=== PATIENT | male | born 1935 | race Caucasian/White ===

== ENCOUNTER 2016-09-02 10:21 | Emergency (ER) | payer MEDICARE, OTHER ==
[~2016-09-02] VITALS: Ht 180.3 cm; Wt 80.5 kg
[~2016-09-02 10:21] MED LIST: COUM1TAB; LISI-589; NEFA50TA; SIMV5TAB32; SPIRCAP
[2016-09-02 10:25] VITALS: BP 138/62; PULSE 68; RESP 17; TEMP 98; O2SAT 100
[2016-09-02] MEDS ORDERED: SPIRCAP INH (10:31)
[2016-09-02] MEDS ORDERED: ALPR0.5T3 PO (10:31)
[2016-09-02] MEDS ORDERED: WARF4TAB52 PO (10:31)
[2016-09-02] MEDS ORDERED: SIMV10TA PO (10:31)
[2016-09-02] MEDS ORDERED: NIFE20 PO (10:31)
[2016-09-02] MEDS ORDERED: FURO40TA PO (10:31)
[2016-09-02] MEDS ORDERED: LISI10TA3 PO (10:31)
--- NOTE | 2016-09-02 10:56 | PD ---
HPI Chief Complaint: Injury Time Seen by Provider: 10:34 Travel History International Travel<30 days: No Contact w/Intl Traveler<30days: No Traveled to known affect area: No History of Present Illness HPI Patient is a 81-year-old male who presents emergency Department with complaint of left ankle pain. Patient had a mechanical fall 2 days ago. Patient states that he twisted his left ankle and since has had pain in the medial and lateral aspects of the ankle. Patient has been able to ambulate, but has been having to use a "walking stick" to help due to pain which he typically does not use. Notes increasing swelling in the left ankle/foot. Notes a history of chronic venous stasis in the bilateral lower extremities. Always has some degree of swelling. No numbness or tingling. No history of neuropathy. Denies any other injury, head injury, headache, nausea vomiting, neck or back pain. PFSH Past Medical History Asthma: Yes Atrial Fibrillation: Yes Blood Disorders: Yes Cancer: No Cardiovascular Problems: Yes High Cholesterol: Yes Chemotherapy: No Congestive Heart Failure: Yes COPD: Yes Cerebrovascular Accident: Yes Diminished Hearing: No Endocrine: No Genitourinary: No Hypertension: Yes Immune Disorder: No Musculoskeletal: No Neurologic: Yes Psychiatric: No Radiation Therapy: No Sickle Cell Disease: No ?: Not Past Surgical History AICD: No Joint Replacement: No Pacemaker: No Other Surgery: Yes (COLONOSCOPY) Social History Alcohol Use: No Tobacco Use: No Substance Use: No Allergies-Medications (Allergen,Severity, Reaction): Coded Allergies: Penicillin (Verified Allergy, Severe, 09/02/16) Reported Meds & Prescriptions Reported Meds & Active Scripts Active Reported Alprazolam 0.5 Mg Tab 0.5 Mg PO DAILY Spiriva Handihaler (Tiotropium Inh) 18 Mcg Cap 18 Mcg INH DAILY 1 capsule = 18 mcg Furosemide 40 Mg Tab 40 Mg PO DAILY Warfarin 1 Mg Tab 1 Mg PO DAILY Simvastatin 10 Mg Tab 10 Mg PO DAILY Nifedipine 20 Mg Cap 60 Mg PO BID Lisinopril 10 Mg Tab 10 Mg PO DAILY Review of Systems Except as stated in HPI: all other systems reviewed are Neg Physical Exam Narrative GENERAL: Well-appearing elderly male in no acute distress SKIN: Warm and dry. HEAD: Atraumatic. EYES: Pupils equal and round. No scleral icterus. No injection or drainage. ENT: No nasal bleeding or discharge. Mucous membranes pink and moist. NECK: Supple without midline tenderness to palpation CARDIOVASCULAR: Regular rate and rhythm. No murmur appreciated. RESPIRATORY: No accessory muscle use. Clear to auscultation. Breath sounds equal bilaterally. Harsh cough, improving per patient. GASTROINTESTINAL: Abdomen soft, non-tender, nondistended. MUSCULOSKELETAL: Bilateral lower extremities with venous stasis edema. There is mild erythema of the lower extremities left slightly greater than right. Increasing edema of the left ankle/foot. Patient has focal tenderness to palpation of the medial and lateral malleoli of the left ankle. Distal sensation and pulses are intact. No obvious deformities. Range of motion intact, and does not reproduce pain. NEUROLOGICAL: Awake and alert. Normal speech. PSYCHIATRIC: Appropriate mood and affect; insight and judgment normal. Data Data Last Documented VS Vital Signs Date Time Temp Pulse Resp B/P Pulse Ox O2 Delivery O2 Flow Rate FiO2 09/02/16 10:31 100 Nasal Cannula 2 09/02/16 10:25 98.0 68 17 138/62 Orders Ankle, Complete ([id number]) (09/02/16 ) Foot, Complete ([id number]) (09/02/16 ) [facility] Medical Decision Making Medical Screen Exam Complete: Yes Emergency Medical Condition: Yes Medical Record Reviewed: Yes Differential Diagnosis 81-year-old male here with left ankle pain status post mechanical fall 2 days ago. Differential includes ankle fracture, dislocation, sprain, foot fracture. He does have mild increased edema and erythema but exam is not consistent with cellulitis at this time. Narrative Course X-ray of the left ankle and foot were obtained showing chronic changes but no acute abnormalities. Patient was able ambulate without any difficulty. He was given Alfa wrap for comfort and will be discharged home. Diagnosis Primary Impression: Left ankle sprain Qualified Code: S93.402A - Sprain of left ankle, unspecified ligament, initial encounter Referrals: Primary Care Physician as needed Patient Instructions: Ankle Sprain (ED), General Instructions Additional Instructions: Tylenol, ibuprofen as needed for pain. Elevate to help with swelling. Ice the affected area 20 minutes at a time to 3 times daily. Alfa wrap as needed for comfort and support. Follow-up with primary care provider symptoms persist and return to the ER for the warning signs discussed. Med/Other Pt SpecificInfo: No Change to Meds Disposition: 01 DISCHARGE HOME Condition: Stable Bharti Reardon MD Sep 02, 2016 10:56
--- NOTE | 2016-09-02 11:40 | RADHPO ---
EXAM DATE/TIME: 09/02/2016 11:16 [facility] COMPARISON: No previous studies available for comparison. INDICATIONS : Left ankle pain post fall two days ago. MEDICAL HISTORY : None. SURGICAL HISTORY : None. ENCOUNTER: Initial ACUITY: 2 days PAIN SCORE: 6/10 LOCATION: Left ankle. FINDINGS: No fracture or subluxation seen of the left ankle. There is diffuse soft tissue swelling. Vascular ca lcifications are noted including phleboliths that are typically seen in the setting of chronic venous stasis. CONCLUSION: Nonspecific soft tissue swelling without acute bony abnormality. Willis Villarreal MD on September 02, 2016 at 11:38 Board Certified Radiologist. This report was verified electronically.
--- NOTE | 2016-09-02 11:41 | RADHPO ---
EXAM DATE/TIME: 09/02/2016 11:21 [facility] COMPARISON: No previous studies available for comparison. INDICATIONS : Left foot pain post fall two days ago. MEDICAL HISTORY : None. SURGICAL HISTORY : None. ENCOUNTER: Initial ACUITY: 2 days PAIN SCORE: 6/10 LOCATION: Left foot. FINDINGS: Bones of the left foot are intact. No subluxations. Minimal degenerative changes are seen at the firs t metatarsophalangeal joint and sesamoids. There is diffuse soft tissue swelling. CONCLUSION: Soft tissue swelling without fracture, subluxation or other acute bony abnormality. Willis Villarreal MD on September 02, 2016 at 11:39 Board Certified Radiologist. This report was verified electronically.
[2016-09-02 12:11] VITALS: BP 124/62
== END 2016-09-02 12:12 | disposition home or self-care (01) ==
LOC: PHED 10:21
DX: S93.402A Sprain of unspecified ligament of left ankle, initial encounter (principal); I48.91 Unspecified atrial fibrillation; J45.909 Unspecified asthma, uncomplicated; E78.00 Pure hypercholesterolemia, unspecified; J44.9 Chronic obstructive pulmonary disease, unspecified; Z86.73 Personal history of transient ischemic attack (TIA), and cerebral infarction without residual deficits; I10 Essential (primary) hypertension; W19.XXXA Unspecified fall, initial encounter; Y99.9 Unspecified external cause status; Y93.89 Activity, other specified
CPT/HCPCS: 73610; 73630; 99283

== ENCOUNTER → 2016-10-10 | Outpatient (CLI) | payer MEDICARE, OTHER ==
[~2016-10-10] MED LIST changes: +ALPR0.5T3 PO; -COUM1TAB; +FURO40TA PO; -LISI-589; +LISI10TA3 PO; -NEFA50TA; +NIFE20 PO; +SIMV10TA PO; -SIMV5TAB32; -SPIRCAP; +SPIRCAP INH; +WARF4TAB52 PO
[2016-10-10 13:17] LABS: AUTOMATED NEUTROPHIL # 8.7 TH/MM3 (1.8-7.7); BASOPHIL # 0.1 TH/MM3 (0-0.2); BASOPHIL % 0.9 % (0.0-2.0); EOSINOPHIL # 0.2 TH/MM3 (0-0.4); EOSINOPHIL % 1.6 % (0.0-4.0); HEMO FLAGS DIFF FINAL; LYMPHOCYTE # 1.2 TH/MM3 (1.0-4.8); MEAN CELL VOLUME 83.8 FL (80.0-100.0); MEAN CORPUSCULAR HEMOGLOBIN 27.3 PG (27.0-34.0); MEAN CORPUSCULAR HGB CONC 32.5 % (32.0-36.0); MONO % 8.3 % (0.0-8.0); NEUT % 78.2 % (16.0-70.0); PLATELET COUNT 251 TH/MM3 (150-450); RED BLOOD COUNT 4.05 MIL/MM3 (4.50-5.90); WHITE BLOOD COUNT 11.2 TH/MM3 (4.0-11.0)
[2016-10-10 13:35] LABS: ANION GAP 11 MEQ/L (5-15); AST (GOT) 10 U/L (15-37); BICARBONATE 32.2 MEQ/L (21.0-32.0); BLOOD UREA NITROGEN 60 MG/DL (7-18); CHLORIDE 94 MEQ/L (98-107); GLOMERULAR FILTRATION RATE 19 ML/MIN (>89); GLUCOSE,FASTING 97 MG/DL (74-99); POTASSIUM 4.4 MEQ/L (3.5-5.1); SODIUM (NA) 137 MEQ/L (136-145)
[2016-10-10 13:46] LABS: ALKALINE PHOSPHATASE 82 U/L (45-117); ALT (GPT) 12 U/L (12-78); TOTAL BILIRUBIN ADULT 0.6 MG/DL (0.2-1.0)
== END ==
LOC: PLAB 10:37
PROVIDERS: ATTEND Family Medicine
DX: I48.91 Unspecified atrial fibrillation (principal); I43 Cardiomyopathy in diseases classified elsewhere
CPT/HCPCS: 36415; 80053; 84443; 85025

== ENCOUNTER 2016-10-12 17:32 | Inpatient (IN) | payer MEDICARE, OTHER ==
[~2016-10-12] VITALS: Ht 180.3 cm; Wt 75.8 kg
[2016-10-12 17:35] VITALS: PULSE 112; RESP 20; TEMP 98.3; O2SAT 100
[2016-10-12 17:55] VITALS: BP 111/66; PULSE 66; RESP 16; TEMP 98.2; O2SAT 96
[2016-10-12] MEDS ORDERED: SODIUM CHLOR 0.9% 1000 ML INJ 1,000 ML IV SCH (18:10)
[2016-10-12] MEDS ORDERED: SODIUM CHLORIDE 0.9% FLUSH 10 ML FLUSH IV FLUSH PRN ×2 (18:15→21:45)
--- NOTE | 2016-10-12 18:24 | PD ---
HPI Chief Complaint: Laceration/Skin Injury Time Seen by Provider: 18:10 Travel History International Travel<30 days: No Contact w/Intl Traveler<30days: No Traveled to known affect area: No History of Present Illness HPI Patient is an 81-year-old male who presents emergency department after police were called for her well-being check. Patient has barely been home nursing a broken left ankle with pain medicine. According to EMS he was fairly groggy on scene when they arrived. Patient and is been ailing in health and declining fairly rapidly and he is home alone. Family members tried to reach out to him today and when he didn't picker tender the phone 911 was called. On arrival patient is complaining of some left lower extremity pain. States that his initial x-ray did not reveal a fracture. Patient states he recently had a CT of his lower extremity by his primary care physician Dr. Aviles. This is what revealed the fracture. Patient also states that his lower extremity has been changing colors on and off for the past week or so. Denies any fever denies any weeping wounds. Denies any chest pain abdominal pain nausea vomiting diarrhea. Patient is somewhat somnolent on arrival. PFSH Past Medical History Hx Anticoagulant Therapy: Yes (2MG DAILY LAST 10/12) Asthma: Yes Atrial Fibrillation: Yes Blood Disorders: Yes Cancer: No Cardiovascular Problems: Yes High Cholesterol: Yes Chemotherapy: No Congestive Heart Failure: Yes COPD: Yes Cerebrovascular Accident: Yes (TIA) Diminished Hearing: No Endocrine: No Genitourinary: No Hypertension: Yes Immune Disorder: No Musculoskeletal: No Neurologic: Yes Psychiatric: No Respiratory: Yes (COPD) Radiation Therapy: No Sickle Cell Disease: No Past Surgical History AICD: No Joint Replacement: No Pacemaker: No Other Surgery: Yes (COLONOSCOPY) Social History Alcohol Use: No Tobacco Use: No Substance Use: No Allergies-Medications (Allergen,Severity, Reaction): Coded Allergies: Penicillin (Verified Allergy, Severe, 10/13/16) Reported Meds & Prescriptions Reported Meds & Active Scripts Active Reported Alprazolam 0.5 Mg Tab 0.5 Mg PO DAILY Spiriva Handihaler (Tiotropium Inh) 18 Mcg Cap 18 Mcg INH DAILY 1 capsule = 18 mcg Furosemide 40 Mg Tab 40 Mg PO DAILY Warfarin 1 Mg Tab 1 Mg PO DAILY Simvastatin 10 Mg Tab 10 Mg PO DAILY Nifedipine 20 Mg Cap 60 Mg PO BID Lisinopril 10 Mg Tab 10 Mg PO DAILY Review of Systems Except as stated in HPI: all other systems reviewed are Neg Physical Exam Narrative GENERAL: [Well-developed well-nourished no apparent distress, mildly somnolent. SKIN: Focused skin assessment warm/dry. There is some color changes as well as cool and violaceous discoloration of the left lower extremity from the mid tibia distally. There is also some gangrenous changes of the second and third toes on the same extremity. This is consistent with arterial disease. Somewhat tender to light palpation. HEAD: Atraumatic. Normocephalic. EYES: Pupils equal and round. No scleral icterus. No injection or drainage. ENT: No nasal bleeding or discharge. Mucous membranes pink and moist. NECK: Trachea midline. No JVD. CARDIOVASCULAR: Regular rate and rhythm. No murmur appreciated. RESPIRATORY: No accessory muscle use. Clear to auscultation. Breath sounds equal bilaterally. GASTROINTESTINAL: Abdomen soft, non-tender, nondistended. Hepatic and splenic margins not palpable. MUSCULOSKELETAL: No obvious deformities. No clubbing. No cyanosis. No edema. Lower extremities: There is a single ulcer in the proximal tibia, gangrenous changes of 2 toes of the lower left extremity. Skin changes as above consistent with advanced ischemic disease. Pulses are barely palpable on the left lower extremity, 2+ in the right lower extremity. Compartments are soft, no gross deformity. NEUROLOGICAL: Awake and alert. No obvious cranial nerve deficits. Motor grossly within normal limits. Normal speech. PSYCHIATRIC: Appropriate mood and affect; insight and judgment normal. Data Data Last Documented VS Vital Signs Date Time Temp Pulse Resp B/P Pulse Ox O2 Delivery O2 Flow Rate FiO2 10/12/16 19:59 67 20 121/58 100 Room Air 10/12/16 17:55 98.2 Orders Complete Blood Count With Diff (10/12/16 18:10) Comprehensive Metabolic Panel (10/12/16 18:10) Lipase (10/12/16 18:10) Lactic Acid (10/12/16 18:10) Prothrombin Time / Inr (Pt) (10/12/16 18:10) Act Partial Throm Time (Ptt) (10/12/16 18:10) Urinalysis - C+S If Indicated (10/12/16 18:10) Iv Access Insert/Monitor (10/12/16 18:10) Ecg Monitoring (10/12/16 18:10) Oximetry (10/12/16 18:10) Sodium Chlor 0.9% 1000 Ml Inj (Ns 1000 M (10/12/16 18:10) Sodium Chloride 0.9% Flush (Ns Flush) (10/12/16 18:15) Electrocardiogram (10/12/16 18:10) Us Leg Venous Doppler (10/12/16 18:10) Blood Culture (10/12/16 18:17) Salicylates (Aspirin) (10/12/16 18:17) Tylenol (Acetaminophen) (10/12/16 18:20) Consult Vascular Surgery (10/12/16 20:06) Us Venous Mapping Low Ext Bila (10/13/16 ) (Hub Use Only)Inp Phy Cons/Ref (10/12/16 ) Admit Order (Ed Use Only) (10/12/16 ) Labs Laboratory Tests Test 10/12/16 18:20 White Blood Count 8.7 TH/MM3 Red Blood Count 4.20 MIL/MM3 Hemoglobin 11.2 GM/DL Hematocrit 35.2 % Mean Corpuscular Volume 83.7 FL Mean Corpuscular Hemoglobin 26.7 PG Mean Corpuscular Hemoglobin 31.9 % Concent Red Cell Distribution Width 15.9 % Platelet Count 236 TH/MM3 Mean Platelet Volume 9.5 FL Neutrophils (%) (Auto) 77.6 % Lymphocytes (%) (Auto) 8.5 % Monocytes (%) (Auto) 11.9 % Eosinophils (%) (Auto) 1.5 % Basophils (%) (Auto) 0.5 % Neutrophils # (Auto) 6.8 TH/MM3 Lymphocytes # (Auto) 0.7 TH/MM3 Monocytes # (Auto) 1.0 TH/MM3 Eosinophils # (Auto) 0.1 TH/MM3 Basophils # (Auto) 0.0 TH/MM3 CBC Comment DIFF FINAL Differential Comment Prothrombin Time 34.1 SEC Prothromb Time International 2.9 RATIO Ratio Activated Partial 52.4 SEC Thromboplast Time Sodium Level 135 MEQ/L Potassium Level 4.2 MEQ/L Chloride Level 92 MEQ/L Carbon Dioxide Level 36.1 MEQ/L Anion Gap 7 MEQ/L Blood Urea Nitrogen 72 MG/DL Creatinine 2.81 MG/DL Estimat Glomerular Filtration 22 ML/MIN Rate Random Glucose 103 MG/DL Lactic Acid Level 1.1 mmol/L Calcium Level 8.3 MG/DL Total Bilirubin 0.5 MG/DL Aspartate Amino Transf 13 U/L (AST/SGOT) Alanine Aminotransferase 12 U/L (ALT/SGPT) Alkaline Phosphatase 79 U/L Total Protein 6.0 GM/DL Albumin 2.7 GM/DL Lipase 102 U/L Salicylates Level LESS THAN 1.7 MG/DL Acetaminophen Level 2.6 MCG/ML MDM Medical Decision Making Medical Screen Exam Complete: Yes Emergency Medical Condition: Yes Differential Diagnosis Toe gangrene, ischemic changes left lower extremity, peripheral artery disease, adjustment disorder, poor social circumstance. Narrative Course Patient was roomed in emergency department, he has obvious peripheral artery disease of the left lower extremity. Ankle brachial indexes were performed as well by Dr. Aviles and he has a 0.33 BRYCE of the left lower extremity. Patient also does have some gangrenous toes. Initial plan was to pursue labs and ultimately consult vascular surgery after a CTA with runoff. The patient also has an acute kidney injury over the past few days. Creatinine is rising as high as 3. This is contraindication to a CTA. Brief consideration was given to performing the CTA however after consulting with Dr. Oquendo the plan is to admit the patient for now and anticoagulate when the INR drops low to his patient is on Coumadin. This was discussed the patient and he is agreeable. Patient was discussed with Dr. Hernandez for admission Diagnosis Primary Impression: Ischemia of left lower extremity Admitting Information Admitting Physician Requests: Admit Condition: Stable Rg Perrin MD Oct 12, 2016 18:24
[2016-10-12 18:44] LABS: AUTOMATED NEUTROPHIL # 6.8 TH/MM3 (1.8-7.7); BASOPHIL % 0.5 % (0.0-2.0); EOSINOPHIL # 0.1 TH/MM3 (0-0.4); EOSINOPHIL % 1.5 % (0.0-4.0); HEMATOCRIT 35.2 % (39.0-51.0); HEMO FLAGS DIFF FINAL; LYMPH % 8.5 % (9.0-44.0); LYMPHOCYTE # 0.7 TH/MM3 (1.0-4.8); MEAN CELL VOLUME 83.7 FL (80.0-100.0); MEAN CORPUSCULAR HEMOGLOBIN 26.7 PG (27.0-34.0); MEAN CORPUSCULAR HGB CONC 31.9 % (32.0-36.0); MONO % 11.9 % (0.0-8.0); NEUT % 77.6 % (16.0-70.0); PLATELET COUNT 236 TH/MM3 (150-450); RED CELL DISTRIBUTION WIDTH 15.9 % (11.6-17.2); WHITE BLOOD COUNT 8.7 TH/MM3 (4.0-11.0)
--- NOTE | 2016-10-12 18:56 | RADRPT ---
EXAM DATE/TIME: 10/12/2016 18:30 [facility] COMPARISON: No previous studies available for comparison. INDICATIONS : Left leg swelling and pain. MEDICAL HISTORY : Congestive heart failure. Hypercholesterolemia. Emphysema. TIA. Afib. HTN. COPD. Asthma. Dyspnea. Blood disorders. Anticoagulant therapy, Coumadin. SURGICAL HISTORY : Colonoscopy. ENCOUNTER: Initial ACUITY: 2 months PAIN SCORE: 6/10 LOCATION: Left leg. TECHNIQUE: Venous ultrasound of the leg was performed from the inguinal ligament to the proximal calf. Real-melissa e, color Doppler and spectral tracing, compression and augmentation techniques were used. FINDINGS: There is normal compressibility of the deep venous system from the inguinal region to the proximal ca lf. No echogenic clot is seen in the lumen of the common femoral, femoral, popliteal, and posterior tibial veins. There is a normal response of the venous system to proximal and distal augmentation an d respiration. CONCLUSION: No evidence of deep venous thrombosis within the left lower extremity. Rg Stuart MD on October 12, 2016 at 18:54 Board Certified Radiologist. This report was verified electronically.
[2016-10-12 18:58] LABS: APTT (PATIENT) 52.4 SEC (24.3-30.1); INTERNATIONAL NORMALIZED RATIO 2.9 RATIO; PROTHROMBIN TIME - PATIENT 34.1 SEC (9.8-11.6)
[2016-10-12 19:14] LABS: ACETAMINOPHEN 2.6 MCG/ML (10.0-30.0); ALKALINE PHOSPHATASE 79 U/L (45-117); ALT (GPT) 12 U/L (12-78); ANION GAP 7 MEQ/L (5-15); AST (GOT) 13 U/L (15-37); BICARBONATE 36.1 MEQ/L (21.0-32.0); BLOOD UREA NITROGEN 72 MG/DL (7-18); CHLORIDE 92 MEQ/L (98-107); GLOMERULAR FILTRATION RATE 22 ML/MIN (>89); POTASSIUM 4.2 MEQ/L (3.5-5.1); SODIUM (NA) 135 MEQ/L (136-145); TOTAL BILIRUBIN ADULT 0.5 MG/DL (0.2-1.0)
[2016-10-12 19:59] VITALS: BP 121/58; PULSE 67; RESP 20; O2SAT 100
--- NOTE | 2016-10-12 21:24 | PD.VS.CON ---
History of Present Illness Chief Complaint: L foot discoloration Consult Requested by: Dr. Perrin, ED History of Present Illness 81 yo male with several days of L foot discoloration that the patient maintains started as a fracture. He lives independently but seems to be a relatively poor historian. He has no F/C and came to ER by EMS. He has full motor function of the foot and upon review of outside records, a recent BRYCE was found to be 0.74 R/0.38 L. Past/Family/Social History Past Medical History CVOD with CVA about 15 years ago HTN irreg HR Social History lives at home Family History is in hospital for unknown reason but pt notes "not doing well" Home Medications Reported Medications Alprazolam 0.5 Mg Tab0.5 Mg PO DAILY Ref 0 09/02/16 Tiotropium Inh (Spiriva Handihaler)18 Mcg Cap18 Mcg INH DAILY #30 CAP Ref 0 1 capsule = 18 mcg 09/02/16 Furosemide 40 Mg Tab40 Mg PO DAILY #30 TAB Ref 0 09/02/16 Warfarin 1 Mg Tab1 Mg PO DAILY #30 TAB Ref 0 09/02/16 Simvastatin 10 Mg Tab10 Mg PO DAILY #30 TAB Ref 0 09/02/16 Nifedipine 20 Mg Cap60 Mg PO BID #120 CAP Ref 0 09/02/16 Lisinopril 10 Mg Tab10 Mg PO DAILY #30 TAB Ref 0 09/02/16 Coded Allergies: Penicillin (Verified Allergy, Severe, 09/02/16) Review of Systems Constitutional: DENIES: Fever, Chills, Change in appetite Cardiovascular: COMPLAINS OF: Lower Extremity Edema, DENIES: Chest pain Musculoskeletal: COMPLAINS OF: Joint Swelling Integumentary: COMPLAINS OF: Abnormal pigmentation Physical Exam Vitals/I&O Date Time Temp Pulse Resp B/P Pulse Ox O2 Delivery O2 Flow Rate FiO2 10/12/16 19:59 67 20 121/58 100 Room Air 10/12/16 17:55 98.2 66 16 111/66 96 10/12/16 17:35 98.3 112 20 100 Room Air Neuro: alert, GRANT, answers questions appropriately HEENT: NC/AT; wears glasses; Neck: no JVD Heart: irreg rate Lungs: diminished BS but unlabored Abdomen: nontender Vascular: Palpable femoral pulses, irregular No popliteal pulse or pedal pulses Extremities: moderate edema L LE; rubor foot and worse distally dry gangrene 2 toes without odor Laboratory Tests Test 10/12/16 18:20 White Blood Count 8.7 Red Blood Count 4.20 Hemoglobin 11.2 Hematocrit 35.2 Mean Corpuscular Volume 83.7 Mean Corpuscular Hemoglobin 26.7 Mean Corpuscular Hemoglobin 31.9 Concent Red Cell Distribution Width 15.9 Platelet Count 236 Mean Platelet Volume 9.5 Neutrophils (%) (Auto) 77.6 Lymphocytes (%) (Auto) 8.5 Monocytes (%) (Auto) 11.9 Eosinophils (%) (Auto) 1.5 Basophils (%) (Auto) 0.5 Neutrophils # (Auto) 6.8 Lymphocytes # (Auto) 0.7 Monocytes # (Auto) 1.0 Eosinophils # (Auto) 0.1 Basophils # (Auto) 0.0 CBC Comment DIFF FINAL Differential Comment Prothrombin Time 34.1 Prothromb Time International 2.9 Ratio Activated Partial 52.4 Thromboplast Time Sodium Level 135 Potassium Level 4.2 Chloride Level 92 Carbon Dioxide Level 36.1 Anion Gap 7 Blood Urea Nitrogen 72 Creatinine 2.81 Estimat Glomerular Filtration 22 Rate Random Glucose 103 Lactic Acid Level 1.1 Calcium Level 8.3 Total Bilirubin 0.5 Aspartate Amino Transf 13 (AST/SGOT) Alanine Aminotransferase 12 (ALT/SGPT) Alkaline Phosphatase 79 Total Protein 6.0 Albumin 2.7 Lipase 102 Salicylates Level LESS THAN 1.7 Acetaminophen Level 2.6 Date/Time Procedure Status Source Growth 10/12/16 18:20 Aerobic Blood Culture Received Blood Peripheral Pending 10/12/16 18:20 Anaerobic Blood Culture Received Blood Peripheral Pending Last 48 hours Impressions Lower Extremity Ultrasound 10/12/16 1810 Signed Impressions: Service Date/Time: September 18:30 - CONCLUSION: No evidence of deep venous thrombosis within the left lower extremity. Rg Stuart MD Assessment and Plan Plan 1. Severe PAD manifesting as tissue loss. He needs a thorough effort at limb salvage, which I will coordinate. He already has ABIs (0.38 L) and I will order a LE vein survey to determine if there is autogenous bypass conduit options. With his renal dysfunction, arm veins are not an option. I will perform an angiogram, likely Sunday after gentle IV hydration and slow INR reversal. 2. CV risk factor modification: needs ASA, statin, beta shelly if tolerated; would benefit from TTE also for risk stratification only 3. Broad antibiotics for presumptive polymicrobial cellulitis 4. Gentle hydration and recheck creatinine - will need Mucomyst Sunday/Sunday for Sunday angio 5. Would allow INR to drift down and when <2.0, start therapeutic heparin gtt 6. Needs PT - he says he walks and uses his leg. I will follow him very closely and tentatively plan on angiography on Sunday. Rg Oquendo MD FACS card clothier [facility] at [facility] [phone] Rg Oquendo MD Oct 12, 2016 21:24
[2016-10-12] MEDS ORDERED: NALOXONE HCL 0.4 MG/ML AMP IV PRN (21:45)
[2016-10-12 22:09] VITALS: BP 118/58; PULSE 64; RESP 20; O2SAT 96
--- NOTE | 2016-10-12 22:46 | HHI.HP ---
[facility] Fidelia Aviles MD Admission Diagnosis Ischemic Foot Diagnoses: Travel History International Travel<30 Days: No Contact w/Intl Traveler <30 Da: No Traveled to Known Affected Are: No History of Present Illness History from patient, ER physician communication, and review of medical records. Patient reported that he came to the hospital for sprained ankle. However, as per ER report, patient was here 2 days ago for this sprained ankle. He was not responding his phone calls at home and family members had called police to check on him. His ailing is also in hospital. Patient is awake alert and oriented. However he is not in the best mood to answer questions. He reports that his doctor has sent him for a circulation test because they were concerned about this color of his lower extremities. He denies any fever. He has noted left leg calf size bigger than the right. He is unsure for how long. He states that he did trip and fall on 10 October. He states this was just a simple trip and fall. Denies any loss of consciousness or hitting his head. Apart from the above, patient also denies any recent fever/nausea/vomiting/ diarrhea/urinary burning and pain in urination. He denies any hematemesis/hematochezia/melena/hematuria.. 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 SKIN: No rashes, ecchymoses or lesions. Cool and dry. HEAD: Atraumatic. Normocephalic. No temporal or scalp tenderness. EYES: No scleral icterus. No injection or drainage. ENT: Nose without bleeding, purulent drainage or septal hematoma. Airway patent. NECK: Trachea midline. No JVD CARDIOVASCULAR: Regular rate and rhythm without murmurs, gallops, or rubs. RESPIRATORY: Clear to auscultation. Breath sounds equal bilaterally. No wheezes , rales, or rhonchi. GASTROINTESTINAL: Abdomen soft, non-tender, nondistended. No guarding. MUSCULOSKELETAL: Extremities without clubbing, cyanosis, or edema. No calf tenderness. Left foot the fourth and fifth digit with his probable discoloration. Poor dorsalis pedis pulses. Left lower extremity pitting edema up to mid calf. NEUROLOGICAL: Awake and alert. Motor and sensory grossly within normal limits. Normal speech. Laboratory Laboratory Tests Test 10/12/16 18:20 White Blood Count 8.7 Red Blood Count 4.20 Hemoglobin 11.2 Hematocrit 35.2 Mean Corpuscular Volume 83.7 Mean Corpuscular Hemoglobin 26.7 Mean Corpuscular Hemoglobin 31.9 Concent Red Cell Distribution Width 15.9 Platelet Count 236 Mean Platelet Volume 9.5 Neutrophils (%) (Auto) 77.6 Lymphocytes (%) (Auto) 8.5 Monocytes (%) (Auto) 11.9 Eosinophils (%) (Auto) 1.5 Basophils (%) (Auto) 0.5 Neutrophils # (Auto) 6.8 Lymphocytes # (Auto) 0.7 Monocytes # (Auto) 1.0 Eosinophils # (Auto) 0.1 Basophils # (Auto) 0.0 CBC Comment DIFF FINAL Differential Comment Prothrombin Time 34.1 Prothromb Time International 2.9 Ratio Activated Partial 52.4 Thromboplast Time Sodium Level 135 Potassium Level 4.2 Chloride Level 92 Carbon Dioxide Level 36.1 Anion Gap 7 Blood Urea Nitrogen 72 Creatinine 2.81 Estimat Glomerular Filtration 22 Rate Random Glucose 103 Lactic Acid Level 1.1 Calcium Level 8.3 Total Bilirubin 0.5 Aspartate Amino Transf 13 (AST/SGOT) Alanine Aminotransferase 12 (ALT/SGPT) Alkaline Phosphatase 79 Total Protein 6.0 Albumin 2.7 Lipase 102 Salicylates Level LESS THAN 1.7 Acetaminophen Level 2.6 Date/Time Procedure Status Source Growth 10/12/16 18:20 Aerobic Blood Culture Received Blood Peripheral Pending 10/12/16 18:20 Anaerobic Blood Culture Received Blood Peripheral Pending Result Diagram: 10/12/16 1820 10/12/16 1820 Imaging Last 48 hours Impressions Lower Extremity Ultrasound 10/12/16 1810 Signed Impressions: Service Date/Time: September 18:30 - CONCLUSION: No evidence of deep venous thrombosis within the left lower extremity. Rg Stuart MD Assessment and Plan Problem List: (1) Ischemia of left lower extremity ICD Code: I99.8 Status: Acute (2) Left ankle sprain ICD Code: S93.402A Status: Acute Assessment and Plan Impression: Acute limb threatening ischemia Recent ankle sprain Acute renal failurelikely due to dehydration Plan: Patient was evaluated by vascular surgeon in ER. notes reviewed Surgeon notes reviewed. At this point, patient's INR is 2.9. Will hold Coumadin. Once INR is less than 2, will start heparin drip therapeutic dose. Vascular surgery plans to do angiogram and possible intervention once INR is decreased on and heparin is therapeutic. Pain control. DVT prophylaxisto start heparin drip once INR is less than 2. Discussed Condition With patient, ER MD Physician Certification 2 Midnight Certification Type: Admission for Inpatient Services Order for Inpatient Services The services are ordered in accordance with Medicare regulations or non- Medicare payer requirements, as applicable. In the case of services not specified as inpatient-only, they are appropriately provided as inpatient services in accordance with the 2-midnight benchmark. Estimated LOS (days): 3 days is the estimated time the patient will need to remain in the hospital, assuming treatment plan goals are met and no additional complications. Post-Hospital Plan: Home Marian Alcantara MD Oct 12, 2016 22:46
[2016-10-13] VITALS (9 sets, daily range): BP systolic 119–166; BP diastolic 57–85; PULSE 61–72; RESP 16–20; TEMP 97.5–98.2; O2SAT 94–96
[2016-10-13 00:03] LABS: BACTERIA, URINE RARE /hpf; BLOOD, URINE NEG (NEG); COMMENT (UR) CULT NOT INDICATED; CULTURE IF INDICATED CULT NOT INDICATED; GLUCOSE,URINE NEG (NEG); HYALINE CAST, URINE 10 /lpf (RARE); KETONE, URINE NEG (NEG); NITRITE,URINE NEG (NEG); URINE COLOR YELLOW (YELLW/STRAW)
[2016-10-13] MEDS: LEVOFLOXACIN 750 MG PREMIX INJ 150 ML IV SCH (00:48)
[2016-10-13 05:33] LABS: AUTOMATED NEUTROPHIL # 5.9 TH/MM3 (1.8-7.7); BASOPHIL % 0.5 % (0.0-2.0); EOSINOPHIL # 0.1 TH/MM3 (0-0.4); EOSINOPHIL % 1.2 % (0.0-4.0); HEMO FLAGS DIFF FINAL; LYMPH % 8.4 % (9.0-44.0); LYMPHOCYTE # 0.6 TH/MM3 (1.0-4.8); MEAN CELL VOLUME 83.3 FL (80.0-100.0); MEAN CORPUSCULAR HEMOGLOBIN 27.4 PG (27.0-34.0); MEAN CORPUSCULAR HGB CONC 32.9 % (32.0-36.0); MONO % 9.8 % (0.0-8.0); NEUT % 80.1 % (16.0-70.0); PLATELET COUNT 222 TH/MM3 (150-450); RED CELL DISTRIBUTION WIDTH 15.8 % (11.6-17.2); WHITE BLOOD COUNT 7.3 TH/MM3 (4.0-11.0)
[2016-10-13 05:42] LABS: BICARBONATE 36.2 MEQ/L (21.0-32.0); POTASSIUM 4.2 MEQ/L (3.5-5.1)
[2016-10-13 05:44] LABS: INTERNATIONAL NORMALIZED RATIO 2.7 RATIO; PROTHROMBIN TIME - PATIENT 31.3 SEC (9.8-11.6)
[2016-10-13] MEDS: SODIUM CHLORIDE 0.9% FLUSH 10 ML FLUSH IV FLUSH SCH ×2 (09:00→20:46)
[2016-10-13] MEDS: TIOTROPIUM BROMIDE 18 MCG INH INH SCH (09:00)
--- NOTE | 2016-10-13 09:40 | RADRPT ---
EXAM DATE/TIME: 10/13/2016 08:32 [facility] COMPARISON: No previous studies available for comparison. INDICATIONS : Preop planning for arterial bypass. MEDICAL HISTORY : Congestive heart failure. Hypercholesterolemia. Emphysema. TIA. Afib. HTN. COPD. Asthma. Dyspnea. Blood disorders. Anticoagulant therapy, Coumadin. SURGICAL HISTORY : Colonoscopy. ENCOUNTER: Initial ACUITY: 2 months PAIN SCORE: 3/10 LOCATION: Bilateral leg. TECHNIQUE: Venous ultrasound of the left and right leg was performed from the inguinal ligament t o the proximal calf. Real-time, color Doppler and spectral tracing, compression and augmentation rubia hniques were used. FINDINGS: RIGHT LEG: There is normal compressibility of the deep venous system from the inguinal region to the proximal calf. No echogenic clot is seen in the lumen of the common femoral, femoral, popliteal, and posterior tibial veins. There is a normal response of the venous system to proximal and distal augmentation and respiration. LEFT LEG: There is normal compressibility of the deep venous system from the inguinal region to t he proximal calf. No echogenic clot is seen in the lumen of the common femoral, femoral, popliteal, and posterior tibial veins. There is a normal response of the venous system to proximal and distal a ugmentation and respiration. CONCLUSION: Negative for deep venous thrombosis. Milton Farfan MD FACR on October 13, 2016 at 9:39 Board Certified Radiologist. This report was verified electronically.
--- NOTE | 2016-10-13 09:42 | HHI.PR ---
Subjective Remarks in no acute distress. has some pain to the left leg/ foot. no fever. no sob. Objective Vitals Vital Signs Date Time Temp Pulse Resp B/P Pulse Ox O2 Delivery O2 Flow Rate FiO2 10/13/16 04:10 97.5 72 18 144/64 95 10/13/16 04:10 Nasal Cannula 2.00 10/13/16 03:18 66 10/13/16 00:51 70 20 131/85 96 Nasal Cannula 2 10/12/16 22:09 64 20 118/58 96 Nasal Cannula 2 10/12/16 19:59 67 20 121/58 100 Room Air 10/12/16 17:55 98.2 66 16 111/66 96 10/12/16 17:35 98.3 112 20 100 Room Air I/O 10/12/16 10/12/16 10/12/16 10/13/16 10/13/16 10/13/16 07:00 15:00 23:00 07:00 15:00 23:00 Intake Total 120 ml Output Total 100 ml Balance 20 ml Intake Oral 120 ml Output Urine Total 100 ml # Voids 1 # Bowel Movements 0 Result Diagram: 10/13/167 10/13/16 0407 Imaging Last Impressions Lower Extremity Ultrasound 10/12/16 1810 Signed Impressions: Service Date/Time: September 18:30 - CONCLUSION: No evidence of deep venous thrombosis within the left lower extremity. Rg Stuart MD Objective Remarks GENERAL: This is a well-nourished, well-developed patient, in no apparent distress. CARDIOVASCULAR: Regular rate and regular rhythm without murmurs, gallops, or rubs. RESPIRATORY: Clear to auscultation. Breath sounds equal bilaterally. No wheezes , rales, or rhonchi. GASTROINTESTINAL: Abdomen soft, non-tender, nondistended. Normal, active bowel sounds MUSCULOSKELETAL: left leg with erythema and left foot cold to touch NEURO: Alert & Oriented x4 to person, place, time, situation. Moves all ext x4 Procedures none Medications and IVs Current Medications Sodium Chloride (NS 1000 ml Inj) 1,000 ml @ 1,000 mls/hr Q1H IV Last administered on 10/12/16t 18:43; Start 10/12/16 at 18:10; Stop 10/12/16 at 19:09 ; Status DC Sodium Chloride (NS Flush) 2 ml UNSCH PRN IV FLUSH FLUSH AFTER USING IV ACCESS ; Start 10/12/16 at 18:15; Stop 10/12/16 at 21:44; Status DC Sodium Chloride (NS Flush) 2 ml UNSCH PRN IV FLUSH FLUSH AFTER USING IV ACCESS ; Start 10/12/16 at 21:45 Sodium Chloride (NS Flush) 2 ml BID IV FLUSH ; Start 10/13/16 at 09:00 Naloxone HCl (Narcan Inj) 0.4 mg UNSCH PRN IV SEE LABEL COMMENTS; Start at 21:45 Alprazolam (Xanax) 0.5 mg DAILY PO ; Start 10/13/16 at 09:00 Nifedipine (Procardia Xl) 60 mg BID PO ; Start 10/13/16 at 09:00 Tiotropium [place] (Spiriva Inh) 18 mcg DAILY INH ; Start 10/13/16 at 09:00 Pravastatin Sodium 20 mg 20 mg DAILY PO CM; Start 10/13/16 at 09:00 Levofloxacin/ Dextrose (Levaquin 750 Mg Premix Inj) 150 ml @ 100 mls/hr Q48H IV Last administered on 10/13/16t 00:48; Start 10/12/16 at 23:00 A/P Assessment and Plan A/P - severe PVD vascular surgery consult appreciated and plan for angiogram on Sunday continue with pain control- continue statin. coumadin on hold; will start heparin drip when INR < 2. -acute kidney injury continue with gentle IV hydration and monitor the renal function closely in light of planned angiography -COPD- with no exacerbation- oxygen-dependent; continue Spiriva-neb treatment as needed. -history of CVA; continue statin- coumadin on hold for now for planned procedure -DVT prophylaxis ; was on coumadin; INR is therapeutic- will start heparin drip when INR < 2. Alyson Rose MD Oct 13, 2016 09:42
[2016-10-13] MEDS: SODIUM CHLOR 0.9% 1000 ML INJ 1,000 ML IV SCH (09:45)
--- NOTE | 2016-10-13 09:45 | RADRPT ---
EXAM DATE/TIME: 10/13/2016 08:40 [facility] COMPARISON: No previous studies available for comparison. INDICATIONS : Planning for arterial bypass. MEDICAL HISTORY : Congestive heart failure. Hypercholesterolemia. Emphysema. TIA. Afib. HTN. COPD. Asthma. Dyspnea. Blood disorders. Anticoagulant therapy, Coumadin. SURGICAL HISTORY : Colonoscopy. ENCOUNTER: Subsequent ACUITY: 2 months PAIN SCORE: 4/10 LOCATION: Bilateral leg. GREATER SAPHENOUS VEIN THIGH: PROXIMAL: Right 4 mm Left 4 mm MID: Right 4 mm Left 4 mm DISTAL: Right 4 mm Left 3 mm CALF: PROXIMAL: Right 3 mm Left 3 mm MID: Right 3 mm Left 2 mm DISTAL: Right 2 mm Left 2 mm FINDINGS: The venous system of the lower extremities are patent by color Doppler imaging. Measurements of the leg veins (in mm) are listed above. CONCLUSION: Venous mapping as described above. Milton Farfan MD FACR on October 13, 2016 at 9:43 Board Certified Radiologist. This report was verified electronically.
[2016-10-13] MEDS: ALPRAZolam 0.5 MG TAB PO SCH (09:53)
[2016-10-13] MEDS: PRAVASTATIN SOD 20 MG TAB PO SCH (09:53)
[2016-10-13] MEDS: NIFEdipine 60 MG SUSTAINED RELEASE TAB PO SCH ×2 (09:53→20:45)
--- NOTE | 2016-10-13 17:25 | EKG ---
Date Performed: 10/12/2016 Time Performed: 18:29:35 PTAGE: 81 years EKG: SUPRAVENTRICULAR RHYTHM LOW QRS VOLTAGE IN EXTREMITY LEADS POSSIBLE ANTERIOR MYOCARDIAL INF ARCTION Compared to previous tracing, patient continues in atrial fibrillation . ABNORMAL ECG PREVIOUS TRACING : 06/29/2005 07.26 DOCTOR: Kip Coto Interpretating Date/Time 10/13/2016 17:24:27
--- NOTE | 2016-10-13 19:00 | EC ---
Study Study Date:10/13/2016 STUDY CONCLUSIONS SUMMARY - Left ventricle: The cavity size was normal. Wall thickness was normal. Systolic function was moderately reduced. The estimated ejection fraction was in the range of 35% to 40%. Diffuse hypokinesis. - Aortic valve: Trace regurgitation. - Mitral valve: Mild thickening of the anterior leaflet. Mild, late systolic prolapse, involving the anterior leaflet. Mild to moderate regurgitation directed posteriorly. - Left atrium: The atrium was moderately dilated. - Right atrium: The atrium was moderately dilated. - Tricuspid valve: Moderate regurgitation. - Pulmonary arteries: PA peak pressure: 51mm Hg (S). - Pericardium, extracardiac: There was a left pleural effusion. If LV function is below 40, please consider prescribing an ACEI or ARB or document rationale for non-use. PROCEDURE DATA STUDY STATUS: Elective. Procedure: Transthoracic echocardiography. Image quality was good. Scanning was performed from the parasternal, apical, and subcostal acoustic windows. Study completion: The patient tolerated the procedure well. Transthoracic echocardiography. M-mode, complete 2D, complete spectral Doppler, and color Doppler. Height: Height: 71in. Weight: Weight: 163.7lb. Body mass index: BMI: 22.9kg/m^2. Body surface area: BSA: 1.94m^2. Patient status: Inpatient. CARDIAC ANATOMY LEFT VENTRICLE: The cavity size was normal. Wall thickness was normal. Systolic function was moderately reduced. The estimated ejection fraction was in the range of 35% to 40%. Diffuse hypokinesis. AORTIC VALVE: Probably trileaflet; moderately thickened leaflets. Doppler: There was no stenosis. Trace regurgitation. Valve area: 1.87cm^2(VTI). Indexed valve area: 0.96cm^2/m^2 (VTI). Valve area: 1.94cm^2 (Vmax). Indexed valve area: 1cm^2/m^2 (Vmax). Mean gradient: 6mm Hg (S). Peak gradient: 12mm Hg (S). MITRAL VALVE: Mild thickening of the anterior leaflet. Mild, late systolic prolapse, involving the anterior leaflet. Doppler: There was no evidence for stenosis. Mild to moderate regurgitation directed posteriorly. Peak gradient: 4mm Hg (D). LEFT ATRIUM: The atrium was moderately dilated. PULMONIC VALVE: Not well visualized. Doppler: There was no evidence for stenosis. Trace to mild regurgitation. TRICUSPID VALVE: Doppler: There was no evidence for stenosis. Moderate regurgitation. RIGHT ATRIUM: The atrium was moderately dilated. Pleura: There was a left pleural effusion. Patient weight: 163.7lb _Ejection fraction:_ 65-75% _Fractional shortening:_ 32% up to 5Kg 5-11.5Kg 11.6-22.9Kg 23-45Kg 45-57Kg Aortic Root 7-13 <17 13-22 17-27 17-27 LA diam 6-13 <23 24-38 33-47 37-40 RVID 10-17 7-15 7-15 7-18 8-17 LVIDd 12-22 <32 24-38 33-47 37-40 LVPW 2-4 3-6 5-7 6-8 7-8 IVS 2-4 3-6 5-7 6-8 7-8 BASIC MEASUREMENTS ADULT NORMAL Left ventricle LV internal dimension, ED, chordal *57.1 mm 43-52 level, PLAX LV internal dimension, ES, chordal *39.9 mm 23-38 level, PLAX Fractional shortening, chordal level, 30 % >29 PLAX LV posterior wall thickness, ED 6.84 mm IVS/LVPW ratio, ED 0.97 <1.3 Ventricular septum Septal thickness, ED 6.64 mm Aortic valve Leaflet separation 21 mm 15-26 Aorta Root diameter, ED 27 mm Left atrium Anterior-posterior dimension 47 mm Anterior-posterior dimension index *2.42 cm/m^2 <2.2 BASIC MEASUREMENTS ADULT NORMAL Aortic valve Leaflet separation 21 mm 15-26 DOPPLER MEASUREMENTS ADULT NORMAL Main pulmonary artery Pressure, S *51 mm Hg =30 Aortic valve Peak velocity, S 172 cm/s Mean velocity, S 105 cm/s VTI, S 25.5 cm Mean gradient, S 6 mm Hg Peak gradient, S 12 mm Hg Valve area, VTI 1.87 cm^2 Valve area index, VTI 0.96 cm^2/m^2 Valve area, Vmax 1.94 cm^2 Valve area index, Vmax 1 cm^2/m^2 Mitral valve Peak E-wave velocity 102 cm/s Peak gradient, D 4 mm Hg Tricuspid valve Regurgitant peak velocity 332 cm/s Peak RV-RA gradient, S 44 mm Hg Maximal regurgitant velocity 332 cm/s Systemic veins Estimated CVP 10 mm Hg Right ventricle RV pressure, S *54 mm Hg <30 Pulmonic valve Peak velocity, S 81.1 cm/s LEGEND: Mean values are shown as u=mean value. Asterisk (*) bates values outside specified normal range. Prepared and signed by Marvin Lloyd [id number]
[2016-10-14] VITALS (7 sets, daily range): BP systolic 117–130; BP diastolic 57–69; PULSE 60–77; RESP 19–22; TEMP 97.2–98.8; O2SAT 92–98
[2016-10-14] LABS: BICARBONATE 38.8 MEQ/L (21.0-32.0); MAGNESIUM 2.4 MG/DL (1.5-2.5); POTASSIUM 4.3 MEQ/L (3.5-5.1)
[2016-10-14] MEDS: SODIUM CHLOR 0.9% 1000 ML INJ 1,000 ML IV SCH (05:21)
--- NOTE | 2016-10-14 07:58 | PD.VS.PN ---
Subjective Subjective/Hospital Course Pt adm with profound L LE ischemia and cellulitis. Motor intact. Notes foot feels like it has pressure but denies rest pain. No fevers overnight. Reportedly had run of V-tach and cardiology consulted. Pt denies CP and SOB this morning Objective Vitals/I&O Date Time Temp Pulse Resp B/P Pulse Ox O2 Delivery O2 Flow Rate FiO2 10/14/16 05:32 98.0 64 20 121/58 95 10/14/16 00:45 98.0 60 19 128/69 95 10/13/16 21:46 98.2 61 19 134/61 95 10/13/16 20:15 Nasal Cannula 2.00 10/13/16 16:00 98.0 65 16 119/58 96 10/13/16 11:51 97.9 67 18 120/57 94 10/13/16 09:00 72 10/13/16 08:00 97.5 64 18 166/66 94 10/13/16 08:00 Nasal Cannula 2.00 10/14/16 10/14/16 10/14/16 07:00 15:00 23:00 Output Total 250 ml Balance -250 ml Physical Exam L foot ruborous and dry gangrene 2nd/3rd toes Laboratory Laboratory Tests Test 10/13/16 23:25 Sodium Level 137 Potassium Level 4.3 Chloride Level 93 Carbon Dioxide Level 38.8 Anion Gap 5 Blood Urea Nitrogen 53 Creatinine 1.90 Estimat Glomerular Filtration 34 Rate Random Glucose 100 Calcium Level 8.4 Magnesium Level 2.4 Date/Time Procedure Status Source Growth 10/12/16 18:20 Aerobic Blood Culture - Preliminary Resulted Blood Peripheral NO GROWTH IN 1 DAY 10/12/16 18:20 Anaerobic Blood Culture - Preliminary Resulted Blood Peripheral NO GROWTH IN 1 DAY Imaging Last 48 hours Impressions Lower Extremity Ultrasound 10/13/16 0000 Signed Impressions: Service Date/Time: Thursday, October 13, 2016 08:32 - CONCLUSION: Negative for deep venous thrombosis. Milton Farfan MD FACR Lower Extremity Ultrasound 10/13/16 0000 Signed Impressions: Service Date/Time: Thursday, October 13, 2016 08:40 - CONCLUSION: Venous mapping as described above. Milton Farfan MD FACR Lower Extremity Ultrasound 10/12/16 1810 Signed Impressions: Service Date/Time: September 18:30 - CONCLUSION: No evidence of deep venous thrombosis within the left lower extremity. Rg Stuart MD Assessment and Plan Plan 1. Severe PAD manifesting as tissue loss. He needs a thorough effort at limb salvage, which I will coordinate. He already has ABIs (0.38 L) a. I have him scheduled for L LE angiogram on Sunday; + L GSV z2-5 b. NPO after MN Sunday c. Please recheck creatinine and INR. d. Will give Mucomyst tomorrow and Sunday for renal protection (creatinine down to 1.9 already with hydration) 2. CV risk factor modification: needs ASA, statin, beta shelly if tolerated; TTE showed EF 35-40%. Cardiology consulted. Clearly high risk for LE revascularization but doubt any risks modifiable. 3. Broad antibiotics for presumptive polymicrobial cellulitis 4. Gentle hydration 5. Would allow INR to drift down and when <2.0, start therapeutic heparin gtt 6. Needs PT - he says he walks and uses his leg. Rg Oquendo MD FACS electronic gluing machine operator [facility] [phone] Rg Oquendo MD Oct 14, 2016 07:58
[2016-10-14] MEDS: SODIUM CHLORIDE 0.9% FLUSH 10 ML FLUSH IV FLUSH SCH ×2 (08:36→21:00)
[2016-10-14] MEDS: ALPRAZolam 0.5 MG TAB PO SCH (08:36)
[2016-10-14] MEDS: PRAVASTATIN SOD 20 MG TAB PO SCH (08:36)
[2016-10-14] MEDS: NIFEdipine 60 MG SUSTAINED RELEASE TAB PO SCH ×2 (08:36→21:00)
[2016-10-14] MEDS: TIOTROPIUM BROMIDE 18 MCG INH INH SCH (08:39)
[2016-10-14 09:29] LABS: INTERNATIONAL NORMALIZED RATIO 2.4 RATIO; PROTHROMBIN TIME - PATIENT 27.4 SEC (9.8-11.6)
[2016-10-14 11:26] LABS: BICARBONATE 38.1 MEQ/L (21.0-32.0); POTASSIUM 4.4 MEQ/L (3.5-5.1)
--- NOTE | 2016-10-14 11:57 | HHI.PR ---
Subjective Remarks in no acute distress. denies and chest pain or sob. d/w the RN; noted that had few episodes of non-sustained V-tach. Objective Vitals Vital Signs Date Time Temp Pulse Resp B/P Pulse Ox O2 Delivery O2 Flow Rate FiO2 10/14/16 09:34 Nasal Cannula 2.00 10/14/16 08:00 98.1 77 22 125/57 93 10/14/16 05:32 98.0 64 20 121/58 95 10/14/16 00:45 98.0 60 19 128/69 95 10/13/16 21:46 98.2 61 19 134/61 95 10/13/16 20:15 Nasal Cannula 2.00 10/13/16 20:00 64 10/13/16 16:00 98.0 65 16 119/58 96 I/O 10/13/16 10/13/16 10/13/16 10/14/16 10/14/16 10/14/16 07:00 15:00 23:00 07:00 15:00 23:00 Intake Total 120 ml 240 ml Output Total 100 ml 650 ml 450 ml 250 ml Balance 20 ml -410 ml -450 ml -250 ml Intake Oral 120 ml 240 ml Output Urine Total 100 ml 650 ml 450 ml 250 ml # Voids 1 # Bowel Movements 0 0 Result Diagram: 10/13/16 0407 10/14/16 0835 Imaging Last Impressions Lower Extremity Ultrasound 10/13/16 0000 Signed Impressions: Service Date/Time: Thursday, October 13, 2016 08:32 - CONCLUSION: Negative for deep venous thrombosis. Milton Farfan MD FACR Objective Remarks GENERAL: This is a well-nourished, well-developed patient, in no apparent distress. CARDIOVASCULAR: Regular rate and regular rhythm without murmurs, gallops, or rubs. RESPIRATORY: Clear to auscultation. Breath sounds equal bilaterally. No wheezes , rales, or rhonchi. GASTROINTESTINAL: Abdomen soft, non-tender, nondistended. Normal, active bowel sounds MUSCULOSKELETAL: left leg with erythema and left foot cold to touch NEURO: Alert & Oriented x4 to person, place, time, situation. Moves all ext x4 Procedures none Medications and IVs Current Medications Sodium Chloride (NS 1000 ml Inj) 1,000 ml @ 1,000 mls/hr Q1H IV Last administered on 10/12/16 18:43; Start 10/12/16 at 18:10; Stop 10/12/16 at 19:09 ; Status DC Sodium Chloride (NS Flush) 2 ml UNSCH PRN IV FLUSH FLUSH AFTER USING IV ACCESS ; Start 10/12/16 at 18:15; Stop 10/12/16 at 21:44; Status DC Sodium Chloride (NS Flush) 2 ml UNSCH PRN IV FLUSH FLUSH AFTER USING IV ACCESS ; Start 10/12/16 at 21:45 Sodium Chloride (NS Flush) 2 ml BID IV FLUSH Last administered on 10/14/16 08: 36; Start 10/13/16 at 09:00 Naloxone HCl (Narcan Inj) 0.4 mg UNSCH PRN IV SEE LABEL COMMENTS; Start at 21:45 Alprazolam (Xanax) 0.5 mg DAILY PO Last administered on 10/14/16 08:36; Start 10/13/16 at 09:00 Nifedipine (Procardia Xl) 60 mg BID PO Last administered on 10/14/16 08:36; Start 10/13/16 at 09:00 Tiotropium [place] (Spiriva Inh) 18 mcg DAILY INH Last administered on 08:39; Start 10/13/16 at 09:00 Pravastatin Sodium 20 mg 20 mg DAILY PO CM Last administered on 10/14/16 08:36; Start 10/13/16 at 09:00 Levofloxacin/ Dextrose 150 ml @ 100 mls/hr Q48H IV Last administered on 00:48; Start 10/12/16 at 23:00 Sodium Chloride (NS 1000 ml Inj) 1,000 ml @ 50 mls/hr Q20H IV Last administered on 10/14/16 05:21; Start 10/13/16 at 09:45 A/P Assessment and Plan A/P - severe PVD vascular surgery consult appreciated and plan for angiogram on Sunday continue with pain control- continue statin. coumadin on hold; will start heparin drip when INR < 2. -acute kidney injury- improving slowly on IV hydration continue with gentle IV hydration and monitor the renal function closely in light of planned angiography -non-sustained V-tach echo with EF 35%- continue to monitor on telemetry- cardiology consulted. -COPD- with no exacerbation- oxygen-dependent; continue Spiriva-neb treatment as needed. -history of CVA; continue statin- coumadin on hold for now for planned procedure -DVT prophylaxis ; was on coumadin; INR is therapeutic- will start heparin drip when INR < 2. Alyson Rose MD Oct 14, 2016 11:57
[2016-10-15] VITALS (7 sets, daily range): BP systolic 105–135; BP diastolic 55–62; PULSE 59–84; RESP 20–24; TEMP 97.3–98.5; O2SAT 90–95
[2016-10-15] MEDS: SODIUM CHLOR 0.9% 1000 ML INJ 1,000 ML IV SCH ×2 (01:45→22:08)
[2016-10-15] MEDS: LEVOFLOXACIN 750 MG PREMIX INJ 150 ML IV SCH (01:53)
[2016-10-15 08:05] LABS: INTERNATIONAL NORMALIZED RATIO 2.1 RATIO; PROTHROMBIN TIME - PATIENT 24.3 SEC (9.8-11.6)
[2016-10-15 08:24] LABS: BICARBONATE 37.2 MEQ/L (21.0-32.0); POTASSIUM 4.1 MEQ/L (3.5-5.1)
[2016-10-15] MEDS: PRAVASTATIN SOD 20 MG TAB PO SCH (08:25)
[2016-10-15] MEDS: NIFEdipine 60 MG SUSTAINED RELEASE TAB PO SCH ×2 (08:25→22:01)
[2016-10-15] MEDS: ALPRAZolam 0.5 MG TAB PO SCH (08:25)
[2016-10-15] MEDS: SODIUM CHLORIDE 0.9% FLUSH 10 ML FLUSH IV FLUSH SCH ×2 (08:26→22:08)
--- NOTE | 2016-10-15 09:36 | HHI.PR ---
Subjective Remarks resting comfortably with no distress. denies pain. no new complaints. Objective Vitals Vital Signs Date Time Temp Pulse Resp B/P Pulse Ox O2 Delivery O2 Flow Rate FiO2 10/15/16 08:00 98.3 71 20 106/62 90 10/15/16 04:00 97.5 68 22 105/55 94 10/15/16 00:00 98.0 81 22 121/57 94 10/14/16 20:15 Nasal Cannula 2.00 10/14/16 20:00 97.3 65 22 121/58 94 10/14/16 17:57 98 Nasal Cannula 2.00 10/14/16 16:00 97.2 61 20 130/63 98 10/14/16 12:00 98.8 70 20 117/58 92 I/O 10/14/16 10/14/16 10/14/16 10/15/16 10/15/16 10/15/16 07:00 15:00 23:00 07:00 15:00 23:00 Intake Total 480 ml 520 ml 600 ml Output Total 250 ml Balance -250 ml 480 ml 520 ml 600 ml Intake Oral 480 ml 120 ml 100 ml IV Total 400 ml 500 ml Output Urine Total 250 ml # Voids 1 1 1 # Bowel Movements 0 0 0 Result Diagram: 10/13/16 0407 10/15/16 0709 Imaging Last Impressions Lower Extremity Ultrasound 10/13/16 0000 Signed Impressions: Service Date/Time: Thursday, October 13, 2016 08:32 - CONCLUSION: Negative for deep venous thrombosis. Milton Farfan MD FACR Objective Remarks GENERAL: This is a well-nourished, well-developed patient, in no apparent distress. CARDIOVASCULAR: Regular rate and regular rhythm without murmurs, gallops, or rubs. RESPIRATORY: Clear to auscultation. Breath sounds equal bilaterally. No wheezes , rales, or rhonchi. GASTROINTESTINAL: Abdomen soft, non-tender, nondistended. Normal, active bowel sounds MUSCULOSKELETAL: left leg with erythema and left foot cold to touch NEURO: Alert & Oriented x4 to person, place, time, situation. Moves all ext x4 Procedures none Medications and IVs Current Medications Sodium Chloride (NS 1000 ml Inj) 1,000 ml @ 1,000 mls/hr Q1H IV Last administered on 10/12/16t 18:43; Start 10/12/16 at 18:10; Stop 10/12/16 at 19:09 ; Status DC Sodium Chloride (NS Flush) 2 ml UNSCH PRN IV FLUSH FLUSH AFTER USING IV ACCESS ; Start 10/12/16 at 18:15; Stop 10/12/16 at 21:44; Status DC Sodium Chloride (NS Flush) 2 ml UNSCH PRN IV FLUSH FLUSH AFTER USING IV ACCESS ; Start 10/12/16 at 21:45 Sodium Chloride (NS Flush) 2 ml BID IV FLUSH Last administered on 10/14/16 08: 36; Start 10/13/16 at 09:00 Naloxone HCl (Narcan Inj) 0.4 mg UNSCH PRN IV SEE LABEL COMMENTS; Start at 21:45 Alprazolam (Xanax) 0.5 mg DAILY PO Last administered on 10/15/16 08:25; Start 10/13/16 at 09:00 Nifedipine (Procardia Xl) 60 mg BID PO Last administered on 10/15/16 08:25; Start 10/13/16 at 09:00 Tiotropium [place] (Spiriva Inh) 18 mcg DAILY INH Last administered on 08:39; Start 10/13/16 at 09:00 Pravastatin Sodium 20 mg 20 mg DAILY PO CM Last administered on 10/15/16 08:25; Start 10/13/16 at 09:00 Levofloxacin/ Dextrose 150 ml @ 100 mls/hr Q48H IV Last administered on 01:53; Start 10/12/16 at 23:00 Sodium Chloride (NS 1000 ml Inj) 1,000 ml @ 50 mls/hr Q20H IV Last administered on 10/15/16 01:45; Start 10/13/16 at 09:45 A/P Assessment and Plan A/P - severe PVD vascular surgery consult appreciated and plan for angiogram on Sunday continue with pain control- continue statin. coumadin on hold; will start heparin drip when INR < 2. -acute kidney injury- improving slowly on IV hydration continue with gentle IV hydration and monitor the renal function closely in light of planned angiography -non-sustained V-tach echo with EF 35%- continue to monitor on telemetry- cardiology consult pending. -COPD- with no exacerbation- oxygen-dependent; continue Spiriva-neb treatment as needed. -history of CVA; continue statin- coumadin on hold for now for planned procedure -DVT prophylaxis ; was on coumadin; INR is therapeutic- will start heparin drip when INR < 2. Discharge Planning awaiting vascular intervention. Alyson Rose MD Oct 15, 2016 09:36
--- NOTE | 2016-10-15 09:54 | PD.CONS ---
[facility] Service Cardiology Physicians Consult Requested By Alyson Rose MD Reason for Consult Non-sustained V-tach Primary Care Physician Fidelia Aviles MD History of Present Illness Mr. Reid is a pleasant 81 year old known to Dr. Coto. He was admitted with complaints of LLE pain and discoloration. He states he had a fall a couple of weeks ago and his foot became discolored. He has a history of PAD, COPD, Atrial fibrillation on Coumadin for anticoagulation, and TIA. He has some mild confusion and is not the best historian. He was reported to have some non-sustained VT on telemetry over the last two days. He has been asymptomatic with these episodes. Echo with reduced ejection fraction 35-40%, mild to moderate mitral regurgitation, moderate tricuspid regurgitation, and pulmonary hypertension. Electrolytes have been normal. He is scheduled for angiogram and possible intervention of his LLE tomorrow with Dr. Oquendo. He is currently resting in bed without distress. Denies any chest pain, palpitations or complaints. Review of Systems Consitutional: DENIES: Fatigue, Fever, Chills Eyes: DENIES: Change in vision HEENT: DENIES: Lightheadedness Respiratory: DENIES: Cough, Shortness of breath Cardiovascular: DENIES: Chest pain, Palpitations, Syncope, Tachycardia Gastrointestinal: DENIES: Nausea, Vomiting Genitourinary: DENIES: Difficulty voiding Integumentary: DENIES: Rash (LLE discoloration) Neurologic: DENIES: Stroke symptoms Musculoskeletal: DENIES: Back pain Psychiatric: DENIES: Anxiety Hematologic: COMPLAINS OF: Bruising tendencies Endocrine: DENIES: Weight gain, Thyroid disease Past Family Social History Allergies: Coded Allergies: Penicillin (Verified Allergy, Severe, 10/13/16) Past Medical History As mentioned in the HPI Reported Medications Reported Meds & Active Scripts Active Reported Alprazolam 0.5 Mg Tab 0.5 Mg PO DAILY Spiriva [place]haler (Tiotropium Inh) 18 Mcg Cap 18 Mcg INH DAILY 1 capsule = 18 mcg Furosemide 40 Mg Tab 40 Mg PO DAILY Warfarin 1 Mg Tab 1 Mg PO DAILY Simvastatin 10 Mg Tab 10 Mg PO DAILY Nifedipine 20 Mg Cap 60 Mg PO BID Lisinopril 10 Mg Tab 10 Mg PO DAILY Active Ordered Medications Current Medications Medications (Trade) Dose Ordered Sig/Jennifer Route Start Time Stop Time Status Last Admin (NS Flush) 2 ml UNSCH PRN IV FLUSH 10/12/16 21:45 (NS Flush) 2 ml BID IV FLUSH 10/13/16 09:00 10/14/16 08:36 (Narcan Inj) 0.4 mg UNSCH PRN IV 10/12/16 21:45 (Xanax) 0.5 mg DAILY PO 10/13/16 09:00 10/15/16 08:25 (Procardia Xl) 60 mg BID PO 10/13/16 09:00 10/15/16 08:25 (Spiriva Inh) 18 mcg DAILY INH 10/13/16 09:00 10/14/16 08:39 Pravastatin Sodium 20 mg 20 mg DAILY PO 10/13/16 09:00 10/15/16 08:25 Levofloxacin/ Dextrose 150 ml @ 100 mls/hr Q48H IV 10/12/16 23:00 10/15/16 01:53 (NS 1000 ml Inj) 1,000 ml @ 50 mls/hr Q20H IV 10/13/16 09:45 10/15/16 01:45 Family History non-contributory Social History He was a former smoker, quit 20 years ago. Denies ETOH. Physical Exam Vital Signs Vital Signs Date Time Temp Pulse Resp B/P Pulse Ox O2 Delivery O2 Flow Rate FiO2 10/15/16 08:00 98.3 71 20 106/62 90 10/15/16 04:00 97.5 68 22 105/55 94 10/15/16 00:00 98.0 81 22 121/57 94 10/14/16 20:15 Nasal Cannula 2.00 10/14/16 20:00 97.3 65 22 121/58 94 10/14/16 17:57 98 Nasal Cannula 2.00 10/14/16 16:00 97.2 61 20 130/63 98 10/14/16 12:00 98.8 70 20 117/58 92 10/14/16 09:34 Nasal Cannula 2.00 Physical Exam GENERAL: Awake, alert, no distress. SKIN: Warm and dry. LLE discoloration, gangrenous 2nd, 3rd toes. HEAD: Atraumatic. Normocephalic. EYES: Pupils equal and round. No scleral icterus. No injection or drainage. ENT: No nasal bleeding or discharge. Mucous membranes pink and moist. NECK: Trachea midline. No JVD. CARDIOVASCULAR: Irregularly irregular rhythm. Systolic murmur over the apex. Murmur of tricuspid regurgitation. RESPIRATORY: No accessory muscle use. Clear to auscultation, decreased bilateral bases. GASTROINTESTINAL: Abdomen soft, non-tender, nondistended. Hepatic and splenic margins not palpable. MUSCULOSKELETAL: LLE extremity with ischemic changes. Gangrenous 2nd, 3rd toes on left. NEUROLOGICAL: Awake and alert. No obvious cranial nerve deficits. Motor grossly within normal limits. Normal speech. PSYCHIATRIC: Appropriate mood and affect. Laboratory Laboratory Tests Test 10/15/16 07:09 Prothrombin Time 24.3 Prothromb Time International 2.1 Ratio Sodium Level 138 Potassium Level 4.1 Chloride Level 94 Carbon Dioxide Level 37.2 Anion Gap 7 Blood Urea Nitrogen 44 Creatinine 1.60 Estimat Glomerular Filtration 42 Rate Random Glucose 88 Calcium Level 8.7 Date/Time Procedure Status Source Growth 10/12/16 18:20 Aerobic Blood Culture - Preliminary Resulted Blood Peripheral NO GROWTH IN 2 DAYS 10/12/16 18:20 Anaerobic Blood Culture - Preliminary Resulted Blood Peripheral NO GROWTH IN 2 DAYS Result Diagram: 10/13/16 0407 10/15/16 0709 Assessment and Plan Assessment and Plan 1. Ischemic LLE with gangrenous 2nd, 3rd toes 2. Dehydration 3. Acute Renal Failure - Improved with hydration 4. Asymptomatic Non-sustained V-tach, EF 35-40% 5. Atrial Fibrillation 6. Mitral Regurgitation 7. Tricuspid Regurgitation Plan Will add low dose beta shelly with hold parameters. Currently in Afib, rate controlled. His coumadin is on hold for surgery, INR 2.1. Heparin drip to be initiated when INR <2.0. Continue ZACHERY-I, statin. Dr. Coto to follow. Discussed Condition With Karen Kenney Oct 15, 2016 09:54
[2016-10-15] MEDS ORDERED: PILL SPLITTER OTHER PRN (10:15)
--- NOTE | 2016-10-15 10:24 | PD.VS.PN ---
Pre-operative Note Pre-operative diagnosis: PAD, CLI, L LE tissue loss Planned procedure: Aortogram w/ L LE angiogram Interval History: Pt adm with L LE foot infection, no F/C Labs: Laboratory Results Test 10/13/16 10/15/16 04:07 07:09 White Blood Count 7.3 TH/MM3 (4.0-11.0) Red Blood Count 4.20 MIL/MM3 (4.50-5.90) Hemoglobin 11.5 GM/DL (13.0-17.0) Hematocrit 35.0 % (39.0-51.0) Mean Corpuscular Volume 83.3 FL (80.0-100.0) Mean Corpuscular Hemoglobin 27.4 PG (27.0-34.0) Mean Corpuscular Hemoglobin 32.9 % Concent (32.0-36.0) Red Cell Distribution Width 15.8 % (11.6-17.2) Platelet Count 222 TH/MM3 (150-450) Mean Platelet Volume 9.3 FL (7.0-11.0) Prothromb Time International 2.1 RATIO Ratio Sodium Level 138 MEQ/L (136-145) Potassium Level 4.1 MEQ/L (3.5-5.1) Chloride Level 94 MEQ/L (98-107) Carbon Dioxide Level 37.2 MEQ/L (21.0-32.0) Anion Gap 7 MEQ/L (5-15) Blood Urea Nitrogen 44 MG/DL (7-18) Random Glucose 88 MG/DL (74-106) Calcium Level 8.7 MG/DL (8.5-10.1) Blood: none needed Imaging: Last Impressions Lower Extremity Ultrasound 10/13/16 0000 Signed Impressions: Service Date/Time: Thursday, October 13, 2016 08:32 - CONCLUSION: Negative for deep venous thrombosis. Milton Farfan MD FACR Orders: NPO after MN MIVF with HCO3 (creatinine 1.6) Mucomyst x 2 days (creatinine 1.6) Recheck INR tomorrow (2.1. today and will hold off FFP given CHF) Post-operative destination: PACU, back to floor Operative site marked: No Consent: I have explained the procedure in detail and discussed the risks, benefits, and potential complications. All questions have been answered. Rg Oquendo MD Oct 15, 2016 10:24
[2016-10-15] MEDS: TIOTROPIUM BROMIDE 18 MCG INH INH SCH (10:45)
[2016-10-15] MEDS: METOPROLOL TARTRATE 25 MG TAB PO SCH ×2 (14:36→22:01)
[2016-10-15] MEDS: ACETYLCYSTEINE 20% 6,000 MG/30 ML ORAL SOLN VIAL PO SCH ×2 (14:37→22:01)
[2016-10-15] MEDS ORDERED: SODIUM BICARBONATE 8.4% INJ 75 MEQ in SODIUM CHLOR 0.45% 1000 ML INJ 1,000 ML IV SCH (23:00)
[2016-10-16] VITALS (10 sets, daily range): BP systolic 115–129; BP diastolic 56–65; PULSE 59–99; RESP 18–22; TEMP 97.7–98.2; O2SAT 93–99
[2016-10-16 07:41] LABS: INTERNATIONAL NORMALIZED RATIO 1.8 RATIO; PROTHROMBIN TIME - PATIENT 20.5 SEC (9.8-11.6)
[2016-10-16 08:04] LABS: BICARBONATE 35.7 MEQ/L (21.0-32.0); POTASSIUM 4.3 MEQ/L (3.5-5.1)
--- NOTE | 2016-10-16 08:24 | HHI.PR ---
Subjective Remarks resting comfortably. has mild wheezing. denies pain. Objective Vitals Vital Signs Date Time Temp Pulse Resp B/P Pulse Ox O2 Delivery O2 Flow Rate FiO2 10/16/16 04:00 98.2 77 22 128/62 93 10/16/16 00:00 98.2 60 20 115/58 96 10/15/16 20:00 98.2 75 20 115/58 93 10/15/16 19:45 Nasal Cannula 2.00 10/15/16 16:00 98.5 59 20 106/55 95 10/15/16 12:00 97.3 84 24 135/62 90 10/15/16 08:30 Nasal Cannula 2.00 I/O 10/15/16 10/15/16 10/15/16 10/16/16 10/16/16 10/16/16 07:00 15:00 23:00 07:00 15:00 23:00 Intake Total 600 ml 720 ml 220 ml Output Total 300 ml 800 ml Balance 600 ml 420 ml -580 ml Intake Oral 100 ml 720 ml 220 ml IV Total 500 ml Output Urine Total 300 ml 800 ml # Voids 1 1 2 # Bowel Movements 0 0 0 Result Diagram: 10/13/16 0407 10/16/16 0628 Imaging Last Impressions Lower Extremity Ultrasound 10/13/16 0000 Signed Impressions: Service Date/Time: Thursday, October 13, 2016 08:32 - CONCLUSION: Negative for deep venous thrombosis. Milton Farfan MD FACR Objective Remarks GENERAL: This is a well-nourished, well-developed patient, in no apparent distress. CARDIOVASCULAR: Regular rate and regular rhythm without murmurs, gallops, or rubs. RESPIRATORY: mild bilateral wheezing. GASTROINTESTINAL: Abdomen soft, non-tender, nondistended. Normal, active bowel sounds MUSCULOSKELETAL: left leg with erythema and left foot cold to touch NEURO: Alert & Oriented x4 to person, place, time, situation. Moves all ext x4 Procedures none Medications and IVs Current Medications Sodium Chloride (NS 1000 ml Inj) 1,000 ml @ 1,000 mls/hr Q1H IV Last administered on 10/12/16t 18:43; Start 10/12/16 at 18:10; Stop 10/12/16 at 19:09 ; Status DC Sodium Chloride (NS Flush) 2 ml UNSCH PRN IV FLUSH FLUSH AFTER USING IV ACCESS ; Start 10/12/16 at 18:15; Stop 10/12/16 at 21:44; Status DC Sodium Chloride (NS Flush) 2 ml UNSCH PRN IV FLUSH FLUSH AFTER USING IV ACCESS ; Start 10/12/16 at 21:45 Sodium Chloride (NS Flush) 2 ml BID IV FLUSH Last administered on 10/15/16 22: 08; Start 10/13/16 at 09:00 Naloxone HCl (Narcan Inj) 0.4 mg UNSCH PRN IV SEE LABEL COMMENTS; Start at 21:45 Alprazolam (Xanax) 0.5 mg DAILY PO Last administered on 10/15/16 08:25; Start 10/13/16 at 09:00 Nifedipine (Procardia Xl) 60 mg BID PO Last administered on 10/15/16 22:01; Start 10/13/16 at 09:00 Tiotropium [place] (Spiriva Inh) 18 mcg DAILY INH Last administered on 10:45; Start 10/13/16 at 09:00 Pravastatin Sodium 20 mg 20 mg DAILY PO CM Last administered on 10/15/16 08:25; Start 10/13/16 at 09:00 Levofloxacin/ Dextrose 150 ml @ 100 mls/hr Q48H IV Last administered on 01:53; Start 10/12/16 at 23:00 Sodium Chloride (NS 1000 ml Inj) 1,000 ml @ 50 mls/hr Q20H IV Last administered on 10/15/16 22:08; Start 10/13/16 at 09:45 Metoprolol Tartrate (Lopressor) 12.5 mg Q12HR PO Last administered on 10/15/16 22:01; Start 10/15/16 at 11:00 Miscellaneous 1 ea 1 ea UNSCH PRN OTHER SEE LABEL COMMENTS; Start 10/15/16 at 10 :15 Sodium Bicarbonate/ Sodium Chloride (Sodium Bicarbonate 8.4% Inj/07/17 NS 1000 ml Inj) 1,075 ml @ 42 mls/hr Q24H IV Last administered on 10/15/16 22:16; Start 10/15/16 at 23:00 Acetylcysteine (Mucomyst 20% Liq) 600 mg BID PO Last administered on 4/2/17at 22:01; Start 10/15/16 at 10:30; Stop 10/16/16 at 23:00 A/P Assessment and Plan A/P - severe PVD vascular surgery consult appreciated and plan for angiogram today continue with pain control- continue statin. coumadin on hold. -acute kidney injury- improving slowly on IV hydration continue with gentle IV hydration and monitor the renal function closely in light of planned angiography started on Mucomyst. -non-sustained V-tach echo with EF 35%- started on Metoprolol- continue to monitor on telemetry- cardiology consult appreciated. -COPD- with no exacerbation- oxygen-dependent; continue Spiriva-continue with neb treatment. -history of CVA; continue statin- coumadin on hold for now for planned procedure -hypertension; continue Procardia and metoprolol- will monitor and adjust the regimen as needed. -DVT prophylaxis ; was on coumadin; - Discharge Planning awaiting vascular intervention. Alyson Rose MD Oct 16, 2016 08:24
[2016-10-16] MEDS: SODIUM CHLORIDE 0.9% FLUSH 10 ML FLUSH IV FLUSH SCH ×2 (09:00→20:48)
[2016-10-16] MEDS: NIFEdipine 60 MG SUSTAINED RELEASE TAB PO SCH ×2 (09:20→20:47)
[2016-10-16] MEDS: ACETYLCYSTEINE 20% 6,000 MG/30 ML ORAL SOLN VIAL PO SCH ×2 (09:20→20:48)
[2016-10-16] MEDS: METOPROLOL TARTRATE 25 MG TAB PO SCH ×2 (09:20→20:47)
[2016-10-16] MEDS: PRAVASTATIN SOD 20 MG TAB PO SCH (09:20)
[2016-10-16] MEDS: ALPRAZolam 0.5 MG TAB PO SCH (09:20)
[2016-10-16] MEDS: TIOTROPIUM BROMIDE 18 MCG INH INH SCH (09:22)
[2016-10-16] MEDS: RESP: ALBUTEROL 1.25 MG/3 ML NEB (PRN) NEB (09:36)
[2016-10-16] MEDS: RESP: ALBUTEROL 2.5 MG/IPRATROPIUM 0.5 MG NEB (SCH) NEB ×3 (12:51→20:16)
--- NOTE | 2016-10-16 13:47 | PD.VS.PN ---
Subjective Subjective/Hospital Course Pt adm with profound L LE ischemia and cellulitis. Motor intact. Angio for today will be postponed because of OR scheduling. Ok to eat but will make NPO tonight Objective Vitals/I&O Date Time Temp Pulse Resp B/P Pulse Ox O2 Delivery O2 Flow Rate FiO2 10/16/16 09:15 Nasal Cannula 2.50 10/16/16 08:00 69 10/16/16 07:46 93 Nasal Cannula 3.00 10/16/16 04:00 98.2 77 22 128/62 93 10/16/16 00:00 98.2 60 20 115/58 96 10/15/16 20:00 98.2 75 20 115/58 93 10/15/16 20:00 68 10/15/16 19:45 Nasal Cannula 2.00 10/15/16 16:00 98.5 59 20 106/55 95 10/16/16 10/16/16 10/16/16 07:00 15:00 23:00 Intake Total 220 ml Output Total 800 ml Balance -580 ml Laboratory Laboratory Tests Test 10/16/16 06:28 Prothrombin Time 20.5 Prothromb Time International 1.8 Ratio Sodium Level 140 Potassium Level 4.3 Chloride Level 98 Carbon Dioxide Level 35.7 Anion Gap 6 Blood Urea Nitrogen 44 Creatinine 1.59 Estimat Glomerular Filtration 42 Rate Random Glucose 85 Calcium Level 8.6 Date/Time Procedure Status Source Growth 10/12/16 18:20 Aerobic Blood Culture - Preliminary Resulted Blood Peripheral NO GROWTH IN 4 DAYS 10/12/16 18:20 Anaerobic Blood Culture - Preliminary Resulted Blood Peripheral NO GROWTH IN 4 DAYS Assessment and Plan Plan 1. Severe PAD manifesting as tissue loss. He needs a thorough effort at limb salvage, which I will coordinate. He already has ABIs (0.38 L) a. I have him scheduled for L LE angiogram rescheduled for Sunday; + L GSV [id number] b. NPO after MN tonight c. Please recheck creatinine and INR. d. Will give Mucomyst tomorrow and Sunday for renal protection (creatinine down to 1.9 already with hydration) 2. CV risk factor modification: needs ASA, statin, beta shelly if tolerated; TTE showed EF 35-40%. Cardiology consulted. Clearly high risk for LE revascularization but doubt any risks modifiable. 3. Broad antibiotics for presumptive polymicrobial cellulitis 4. Gentle hydration 5. Would allow INR to drift down and when <2.0, start therapeutic heparin gtt 6. Needs PT - he says he walks and uses his leg. Rg Oquendo MD FACS dietetic assistant [facility] [phone] Rg Oquendo MD Oct 16, 2016 13:47
[2016-10-16] MEDS: LEVOFLOXACIN 750 MG PREMIX INJ 150 ML IV SCH (22:28)
[2016-10-16] MEDS ORDERED: SODIUM BICARBONATE 8.4% INJ 75 MEQ in SODIUM CHLOR 0.45% 1000 ML INJ 1,000 ML IV SCH (23:00)
[2016-10-17] VITALS (8 sets, daily range): BP systolic 100–136; BP diastolic 5–63; PULSE 61–98; RESP 18–20; TEMP 96.5–98.5; O2SAT 92–100
[2016-10-17] MEDS ORDERED: SODIUM CHLORID 0.9% 500 ML IV PRN (06:45)
[2016-10-17] MEDS ORDERED: LACTATED RINGER'S 1000 ML IV PRN (06:45)
[2016-10-17] MEDS ORDERED: CHLORHEXIDINE GLUCONATE 2 % 1 PACK (2 CLOTHS) TOPICAL PRN (06:45)
[2016-10-17] MEDS ORDERED: INSULIN HUMAN REGULAR 1,000 UNITS/10 ML VIAL SQ PRN (06:45)
[2016-10-17] MEDS ORDERED: POVIDONE IODINE 5% (ANTISEPSIS KIT) 4 APPLICATIONS EACH NARE PRN (06:45)
[2016-10-17] MEDS ORDERED: METOPROLOL TARTRATE 25 MG TAB PO PRN (06:45)
[2016-10-17 07:13] LABS: INTERNATIONAL NORMALIZED RATIO 2.3 RATIO; PROTHROMBIN TIME - PATIENT 26.6 SEC (9.8-11.6)
[2016-10-17 07:18] LABS: BASOPHIL % 0.5 % (0.0-2.0); EOSINOPHIL # 0.1 TH/MM3 (0-0.4); EOSINOPHIL % 0.9 % (0.0-4.0); HEMATOCRIT 35.2 % (39.0-51.0); HEMO FLAGS DIFF FINAL; LYMPH % 9.2 % (9.0-44.0); LYMPHOCYTE # 0.8 TH/MM3 (1.0-4.8); MEAN CELL VOLUME 83.2 FL (80.0-100.0); MEAN CORPUSCULAR HEMOGLOBIN 26.7 PG (27.0-34.0); MEAN CORPUSCULAR HGB CONC 32.1 % (32.0-36.0); NEUT % 82.4 % (16.0-70.0); PLATELET COUNT 212 TH/MM3 (150-450); RED BLOOD COUNT 4.23 MIL/MM3 (4.50-5.90); RED CELL DISTRIBUTION WIDTH 15.8 % (11.6-17.2); WHITE BLOOD COUNT 8.4 TH/MM3 (4.0-11.0)
[2016-10-17 07:31] LABS: POTASSIUM 3.8 MEQ/L (3.5-5.1)
[2016-10-17] MEDS: RESP: ALBUTEROL 2.5 MG/IPRATROPIUM 0.5 MG NEB (SCH) NEB (07:31)
[2016-10-17] MEDS ORDERED: IOHEXOL 300 MG/ML 100 ML BTL (for Rad CT) OTHER ONE (07:43)
[2016-10-17] MEDS: ALPRAZolam 0.5 MG TAB PO SCH (08:49)
[2016-10-17] MEDS: NIFEdipine 60 MG SUSTAINED RELEASE TAB PO SCH ×2 (08:49→21:17)
[2016-10-17] MEDS: PRAVASTATIN SOD 20 MG TAB PO SCH (08:49)
[2016-10-17] MEDS: METOPROLOL TARTRATE 25 MG TAB PO SCH ×2 (08:49→21:17)
[2016-10-17] MEDS: SODIUM CHLORIDE 0.9% FLUSH 10 ML FLUSH IV FLUSH SCH ×2 (08:50→21:00)
[2016-10-17] MEDS: TIOTROPIUM BROMIDE 18 MCG INH INH SCH (08:50)
[2016-10-17] MEDS: MORPHINE SULFATE 4 MG/ML INJ IV PRN (08:51)
[2016-10-17] MEDS ORDERED: IOHEXOL 300 MG/ML 50 ML BTL (for RAD DIAG) OTHER ONE (11:00)
[2016-10-17] MEDS ORDERED: MIDAZOLAM HCL 2 MG/2 ML VIAL ONE (11:05)
[2016-10-17] MEDS ORDERED: ACETAMINOPHEN 1000 MG/100 ML VIAL IV ONE (11:05)
[2016-10-17] MEDS ORDERED: fentaNYL CITRATE 250 MCG/5 ML AMP ONE (11:06)
[2016-10-17] MEDS ORDERED: FAMOTIDINE 20 MG/2 ML VIAL ONE (11:06)
[2016-10-17] MEDS ORDERED: HEPARIN SODIUM - SQ 10,000 UNITS/ML VIAL ONE (11:13)
[2016-10-17] MEDS ORDERED: BUPIVACAINE/EPINEPHRINE 0.5% PF 30 ML VIAL ONE (11:13)
[2016-10-17] MEDS ORDERED: LIDOCAINE HCL 1% 20 ML VIAL ONE (11:18)
[2016-10-17] MEDS ORDERED: PROTAMINE SULFATE 50 MG/5 ML VIAL ONE (11:30)
[2016-10-17] MEDS ORDERED: HEPARIN SODIUM - IV 10,000 UNITS/10 ML VIAL ONE (11:32)
--- NOTE | 2016-10-17 12:05 | HHI.PR ---
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
--- NOTE | 2016-10-17 16:55 | HHI.PR ---
Subjective Remarks denies cpsob some pain on left lower extremity Objective Vitals Vital Signs Date Time Temp Pulse Resp B/P Pulse Ox O2 Delivery O2 Flow Rate FiO2 10/17/16 15:58 65 10/17/16 12:15 97.8 62 18 109/56 94 10/17/16 08:15 Nasal Cannula 2.50 10/17/16 08:00 97.9 98 18 128/56 93 10/17/16 08:00 69 10/17/16 07:31 92 Nasal Cannula 4.00 10/17/16 04:00 98.3 66 18 136/63 95 10/17/16 00:00 98.2 61 18 116/59 93 10/16/16 20:55 Nasal Cannula 2.50 10/16/16 20:17 97 Nasal Cannula 3.00 10/16/16 20:02 64 10/16/16 20:00 98.1 60 18 118/56 99 I/O 10/16/16 10/16/16 10/16/16 10/17/16 10/17/16 10/17/16 07:00 15:00 23:00 07:00 15:00 23:00 Intake Total 220 ml 1063 ml 100 ml 370 ml 592 ml Output Total 800 ml 625 ml Balance -580 ml 1063 ml 100 ml -255 ml 592 ml Intake Oral 220 ml 0 ml 100 ml 370 ml IV Total 1063 ml 592 ml Output Urine Total 800 ml 625 ml # Voids 2 4 0 # Bowel Movements 0 1 0 0 Result Diagram: 10/17/16 0549 10/17/16 0549 Imaging Last Impressions Lower Extremity Ultrasound 10/13/16 0000 Signed Impressions: Service Date/Time: Thursday, October 13, 2016 08:32 - CONCLUSION: Negative for deep venous thrombosis. Milton Farfan MD FACR Objective Remarks GENERAL: This is a well-nourished, well-developed patient, in no apparent distress. CARDIOVASCULAR: Regular rate and regular rhythm without murmurs, gallops, or rubs. RESPIRATORY: mild bilateral wheezing. GASTROINTESTINAL: Abdomen soft, non-tender, nondistended. Normal, active bowel sounds MUSCULOSKELETAL: left leg with erythema and left foot cold to touch NEURO: Alert & Oriented x4 to person, place, time, situation. Moves all ext x4 Procedures none Medications and IVs Current Medications Medications (Trade) Dose Ordered Sig/Jennifer Route Start Time Stop Time Status Last Admin (NS Flush) 2 ml UNSCH PRN IV FLUSH 10/12/16 21:45 (NS Flush) 2 ml BID IV FLUSH 10/13/16 09:00 10/16/16 20:48 (Narcan Inj) 0.4 mg UNSCH PRN IV 10/12/16 21:45 (Xanax) 0.5 mg DAILY PO 10/13/16 09:00 10/17/16 08:49 (Procardia Xl) 60 mg BID PO 10/13/16 09:00 10/17/16 08:49 (Spiriva Inh) 18 mcg DAILY INH 10/13/16 09:00 10/17/16 08:50 Pravastatin Sodium 20 mg 20 mg DAILY PO 10/13/16 09:00 10/17/16 08:49 Levofloxacin/ Dextrose 150 ml @ 100 mls/hr Q48H IV 10/12/16 23:00 10/16/16 22:28 (NS 1000 ml Inj) 1,000 ml @ 50 mls/hr Q20H IV 10/13/16 09:45 Hold 10/15/16 22:08 (Lopressor) 12.5 mg Q12HR PO 10/15/16 11:00 10/17/16 08:49 Miscellaneous 1 ea 1 ea UNSCH PRN OTHER 10/15/16 10:15 10/16/16 09:21 Sodium Bicarbonate 75 meq/Sodium Chloride 1,075 ml @ 42 mls/hr Q24H IV 10/16/16 23:00 10/16/16 22:28 Lactated Ringer's 1,000 ml @ 0 mls/hr Q0M PRN IV 10/17/16 06:45 10/20/16 06:44 (NS 500 ml Inj) 500 ml @ 30 mls/hr [id number] PRN IV 10/17/16 06:45 10/20/16 06:44 (Morphine Inj) 2 mg Q4H PRN IV 10/17/16 08:00 10/17/16 08:51 (Morphine Inj) 4 mg Q4H PRN IV 10/17/16 08:00 Urinary Catheter: No Vascular Central Line Catheter: No A/P Problem List: (1) Ischemia of left lower extremity ICD Code: I99.8 Status: Acute Plan: She was admitted to the medical floor and restless surgery consulted. The patient underwent left lower extremity angiogram with findings described as severe inflow and outflow disease. [facility] surgery recommends CTA A/P 2 toes, very likely to meet major amputation. Consult for second opinion has been placed by vascular surgery. (2) MARLYN (acute kidney injury) ICD Code: N17.9 Status: Acute Plan: Likely prerenal azotemia, creatinine trending down from 2.8 on admission down to 1.49. Continue to monitor BUN/creatinine, strict I's and O's, avoid nephrotoxins. Patient status post angiogram that could result in further kidney injury. Continue to monitor BUN/creatinine. Continue IV fluids. (3) Non-sustained ventricular tachycardia ICD Code: I47.2 Status: Acute Plan: Echocardiogram showed EF of 35%. The patient started on metoprolol and is being monitored on telemetry. Cardiology consultation appreciated. (4) COPD (chronic obstructive pulmonary disease) ICD Code: J44.9 Status: Chronic Plan: Seems to be stable. Patient is oxygen dependent. Continue Spiriva with neck treatments. (5) History of CVA (cerebrovascular accident) ICD Code: Z86.73 Status: Chronic Plan: Continue statin, patient previously on Coumadin on hold now for planned procedure. INR 2.3, continue to monitor PT/INR and start heparin drip once INR falls below 2. (6) HTN (hypertension) ICD Code: I10 Status: Chronic Plan: Continue Procardia and metoprolol. BP seems to be stable. Continue to monitor vital signs. (7) Atrial fibrillation ICD Code: I48.91 Status: Acute Plan: EKG reviewed by me showed atrial flutter with a ventricular rate of 62 bpm. Atrial fibrillation/atrial flutter is rate controlled, continue beta shelly which has been started by cardiology. Echocardiogram showed a systolic function moderately reduced with an EF of 35-40 %. Diffuse hypokinesis. Trace aortic regurgitation. Mild to moderate mitral valve regurgitation. Moderate tricuspid regurgitation. Cardiology consulted, appreciate recommendations. Problem Qualifiers (1) COPD (chronic obstructive pulmonary disease): Qualified Code: J42 - Chronic bronchitis, unspecified chronic bronchitis type (2) HTN (hypertension): Qualified Code: I10 - Essential hypertension (3) Atrial fibrillation: Qualified Code: I48.2 - Chronic atrial fibrillation Yfn Hernandez MD Oct 17, 2016 16:55
--- NOTE | 2016-10-17 17:42 | PD.CAR.PN ---
CVT Progress Note Subjective/Hospital Course: 81-year-old gentleman with severe peripheral vascular disease and the ischemia of the left leg with incipient gangrene of the foot Patient has a no detectable pulses below the level of the femoral artery on the left I completely agree Dr. Oquendo that the chances of salvage of this leg are minimal and if anything patient will need above-knee amputation. Full consult dictated Thanks J Objective: Vital Signs Date Time Temp Pulse Resp B/P Pulse Ox O2 Delivery O2 Flow Rate FiO2 10/17/16 16:00 98.5 64 18 109/5 100 10/17/16 15:58 65 10/17/16 12:15 97.8 62 18 109/56 94 10/17/16 08:15 Nasal Cannula 2.50 10/17/16 08:00 97.9 98 18 128/56 93 10/17/16 08:00 69 10/17/16 07:31 92 Nasal Cannula 4.00 10/17/16 04:00 98.3 66 18 136/63 95 10/17/16 00:00 98.2 61 18 116/59 93 10/16/16 20:55 Nasal Cannula 2.50 10/16/16 20:17 97 Nasal Cannula 3.00 10/16/16 20:02 64 10/16/16 20:00 98.1 60 18 118/56 99 Labs: Laboratory Tests Test 10/17/16 05:49 White Blood Count 8.4 TH/MM3 (4.0-11.0) Red Blood Count 4.23 MIL/MM3 (4.50-5.90) Hemoglobin 11.3 GM/DL (13.0-17.0) Hematocrit 35.2 % (39.0-51.0) Mean Corpuscular Volume 83.2 FL (80.0-100.0) Mean Corpuscular Hemoglobin 26.7 PG (27.0-34.0) Mean Corpuscular Hemoglobin 32.1 % Concent (32.0-36.0) Red Cell Distribution Width 15.8 % (11.6-17.2) Platelet Count 212 TH/MM3 (150-450) Mean Platelet Volume 9.2 FL (7.0-11.0) Neutrophils (%) (Auto) 82.4 % (16.0-70.0) Lymphocytes (%) (Auto) 9.2 % (9.0-44.0) Monocytes (%) (Auto) 7.0 % (0.0-8.0) Eosinophils (%) (Auto) 0.9 % (0.0-4.0) Basophils (%) (Auto) 0.5 % (0.0-2.0) Neutrophils # (Auto) 7.0 TH/MM3 (1.8-7.7) Lymphocytes # (Auto) 0.8 TH/MM3 (1.0-4.8) Monocytes # (Auto) 0.6 TH/MM3 (0-0.9) Eosinophils # (Auto) 0.1 TH/MM3 (0-0.4) Basophils # (Auto) 0.0 TH/MM3 (0-0.2) CBC Comment DIFF FINAL Differential Comment Prothrombin Time 26.6 SEC (9.8-11.6) Prothromb Time International 2.3 RATIO Ratio Sodium Level 140 MEQ/L (136-145) Potassium Level 3.8 MEQ/L (3.5-5.1) Chloride Level 98 MEQ/L (98-107) Carbon Dioxide Level 37.0 MEQ/L (21.0-32.0) Anion Gap 5 MEQ/L (5-15) Blood Urea Nitrogen 35 MG/DL (7-18) Creatinine 1.49 MG/DL (0.60-1.30) Estimat Glomerular Filtration 45 ML/MIN (>89) Rate Random Glucose 101 MG/DL (74-106) Calcium Level 8.8 MG/DL (8.5-10.1) Result Diagram: 10/17/16 0549 10/17/16 0549 Blanche Schwarz MD Oct 17, 2016 17:42 Blanche Schwarz MD Oct 17, 2016 17:42
--- NOTE | 2016-10-17 18:42 | MB ---
cc: BLANCHE ADAMS MD DATE OF CONSULTATION 10/17/[address] Flores. REASON FOR CONSULTATION Second opinion on peripheral vascular disease. HISTORY OF PRESENT ILLNESS This 81-year-old male was brought to the hospital a few days ago and initial story was that there was a sprained ankle, however, in the process of workup the patient was found to have diminished circulation to the left leg, discoloration and incipient gangrene of the toes. The patient is a very poor historian. I am not getting much out of him. Based on this, patient was worked up. Question arises now what to do with the leg and if there is any possibility of reconstruction of his vasculature. PAST MEDICAL HISTORY 1. stroke, 2. Atrial fibrillation, 3. COPD, 4. Peripheral vascular disease, patient is currently on Coumadin. PAST SURGICAL HISTORY Not known to me. PHYSICAL EXAMINATION GENERAL: A pleasant 81-year-old gentleman in no acute distress. While he is awake and alert, he is a very poor historian and seems to be somewhat forgetful. HEENT: Normocephalic. No trauma to the head. Pupils equal and reactive. Extraocular muscles intact. NECK: Supple, bilateral carotid pulses. CHEST: Bilateral breath sounds. HEART: Irregular rhythm. The patient is slow atrial fibrillation. ABDOMEN: Soft. Active bowel sounds. No rebound or guarding. EXTREMITIES: The patient has severe peripheral vascular disease, has palpable femoral pulses on deep palpation but no distal pulses at all on the left side. On the right side, the patient has a dopplerable popliteal pulse and dopplerable posterior tibial. I do not get any dorsalis pedis. On the left side, the patient has femoral pulse and nothing below the level of the femoral artery in groin. BRYCE is 0.3. There is discoloration of the left leg almost up to the knee. This is thickened, sclerotic skin and some liposclerosis underneath it with chronic venostasis cellulitis changes. Tips of the toes L are gangrenous and capillary refill is diminished. IMPRESSION/RECOMMENDATIONS This elderly gentleman has severe peripheral vascular disease and there is a high chance that the patient will lose his left leg. I have evaluated Dr. Flores's approach. I fully agree with his conclusions and it is very unlikely that this will be a salvageable extremity. There is no reconstructible disease to be approached by either open of endovascular means. Most likely, the patient will require above-knee amputation. Due to the severity of peripheral vascular disease below the level of the knee and quality of the skin and tissues, I do not believe that below-knee amputation is a feasible option. Therefore, I completely agree with Dr. Flores's approach and above knee amputation. I thank you much for referral. Blanche NORMAN /5:39 PM /6:24 PM FERNY
--- NOTE | 2016-10-17 19:56 | HHI.PR ---
Addendum to Inpatient Note Addendum Reason: Additional Documentation Additional Information Thanks so much for taking care of Mr. Reid. He has been under considerable stress these past few years as his has advancing dementia. She was recently hospitalized due to worsening confusion and abusive behavior and is now residing in a jail. 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 Since his 's hospitalization, he has had a dramatic decline in his health and mentation. He hasn't had a discrete event like stroke but I'm suspicious there may be some concussion and changes from his falls and stressors. His only past surgical history is cataract surgery. He has been following with Dr. Coto for atrial fibrillation and a history of non-sustained V Tach. He has not had previous hospitalizations. He has a prior 50 pack year history of tobacco use quitting more than 10 years ago. COPD has been controlled with spiriva. He has a son who lives locally and a daughter living in the [place] I believe. He is up to date with pneumovax/prevnar, he had his flu vaccine this season and he had a Tdap in October 2015. He did not have any peripheral vascular symptoms with his activity until the past month or so. He has had several falls and injuries since June, most recently sustaining the left medial malleolar fracture that was not seen on the original xray in the ER but found on CT scan done last week due to the increased swelling and vascular changes. As of his June visit both in my office and with Dr. Coto, there were no such ischemic changes to the foot. He has a hired caregiver who was initially caring for his but has been helping to care for him since his fall and ankle injury. Mr. Reid has previously told me that he has papers designating his son and daughter as his POA when needed, however I do not have those papers available in my office charts. I'm sorry to see these rapidly changing vascular issues may be leading to amputation, but I trust you will take good care of him. If I can be of any help, please let me know. Fidelia Aviles MD (family medicine) Fidelia Aviles MD Oct 17, 2016 19:55
[2016-10-18] VITALS (10 sets, daily range): BP systolic 104–113; BP diastolic 53–61; PULSE 56–66; RESP 20–22; TEMP 94.6–98; O2SAT 78–100
[2016-10-18 07:46] LABS: AUTOMATED NEUTROPHIL # 7.3 TH/MM3 (1.8-7.7); BASOPHIL % 0.5 % (0.0-2.0); EOSINOPHIL # 0.1 TH/MM3 (0-0.4); EOSINOPHIL % 1.3 % (0.0-4.0); HEMATOCRIT 35.9 % (39.0-51.0); HEMO FLAGS DIFF FINAL; LYMPH % 7.6 % (9.0-44.0); LYMPHOCYTE # 0.7 TH/MM3 (1.0-4.8); MEAN CELL VOLUME 83.8 FL (80.0-100.0); MEAN CORPUSCULAR HEMOGLOBIN 26.8 PG (27.0-34.0); MONO % 7.5 % (0.0-8.0); NEUT % 83.1 % (16.0-70.0); PLATELET COUNT 214 TH/MM3 (150-450); RED BLOOD COUNT 4.29 MIL/MM3 (4.50-5.90); RED CELL DISTRIBUTION WIDTH 15.4 % (11.6-17.2); WHITE BLOOD COUNT 8.8 TH/MM3 (4.0-11.0)
[2016-10-18 07:53] LABS: INTERNATIONAL NORMALIZED RATIO 2.6 RATIO; PROTHROMBIN TIME - PATIENT 30.5 SEC (9.8-11.6)
[2016-10-18 08:18] LABS: ALT (GPT) 13 U/L (12-78); AST (GOT) 26 U/L (15-37); BLOOD UREA NITROGEN 33 MG/DL (7-18); CHLORIDE 98 MEQ/L (98-107); GLOMERULAR FILTRATION RATE 48 ML/MIN (>89); MAGNESIUM 2.2 MG/DL (1.5-2.5); SODIUM (NA) 141 MEQ/L (136-145)
[2016-10-18 08:20] LABS: ALKALINE PHOSPHATASE 63 U/L (45-117); ANION GAP 7 MEQ/L (5-15); BICARBONATE 36.4 MEQ/L (21.0-32.0); TOTAL BILIRUBIN ADULT 0.6 MG/DL (0.2-1.0)
[2016-10-18] MEDS: ALPRAZolam 0.5 MG TAB PO SCH (08:23)
[2016-10-18] MEDS: PRAVASTATIN SOD 20 MG TAB PO SCH (08:23)
[2016-10-18] MEDS: TIOTROPIUM BROMIDE 18 MCG INH INH SCH (08:24)
[2016-10-18] MEDS: SODIUM CHLORIDE 0.9% FLUSH 10 ML FLUSH IV FLUSH SCH ×2 (08:25→20:44)
[2016-10-18] MEDS: METOPROLOL TARTRATE 25 MG TAB PO SCH ×2 (12:12→21:21)
[2016-10-18] MEDS: NIFEdipine 60 MG SUSTAINED RELEASE TAB PO SCH ×2 (12:12→21:20)
--- NOTE | 2016-10-18 12:26 | PD.VS.PN ---
Subjective Subjective/Hospital Course Pt in bed resting comfortably alert and in NAD Pt without complaints Objective Vitals/I&O Date Time Temp Pulse Resp B/P Pulse Ox O2 Delivery O2 Flow Rate FiO2 10/18/16 10:47 94 Nasal Cannula 4.00 10/18/16 08:30 61 10/18/16 08:30 Nasal Cannula 2.00 10/18/16 08:00 97.9 60 20 111/53 100 10/18/16 04:00 97.6 56 22 112/59 98 10/18/16 00:00 98.0 59 22 104/55 96 10/17/16 21:20 Nasal Cannula 2.50 10/17/16 19:42 96.5 64 20 100/58 97 10/17/16 18:08 Nasal Cannula 4.00 10/17/16 16:00 98.5 64 18 109/55 100 10/17/16 15:58 65 10/17/16 12:15 97.8 62 18 109/56 94 Physical Exam GENERAL: A&OX3, NAD, GCS15 SKIN: Warm and dry. ischemic discolored left foot to ankle NECK: Supple, NO JVD CARDIOVASCULAR: +S1,S2 RRR RESPIRATORY: Breath sounds equal with some expiratory wheezes bilaterally. No accessory muscle use. GASTROINTESTINAL: Abdomen soft, non-tender, nondistended. MUSCULOSKELETAL: Left foot cool to touch Laboratory Laboratory Tests Test 10/18/16 06:30 White Blood Count 8.8 Red Blood Count 4.29 Hemoglobin 11.5 Hematocrit 35.9 Mean Corpuscular Volume 83.8 Mean Corpuscular Hemoglobin 26.8 Mean Corpuscular Hemoglobin 32.0 Concent Red Cell Distribution Width 15.4 Platelet Count 214 Mean Platelet Volume 9.2 Neutrophils (%) (Auto) 83.1 Lymphocytes (%) (Auto) 7.6 Monocytes (%) (Auto) 7.5 Eosinophils (%) (Auto) 1.3 Basophils (%) (Auto) 0.5 Neutrophils # (Auto) 7.3 Lymphocytes # (Auto) 0.7 Monocytes # (Auto) 0.7 Eosinophils # (Auto) 0.1 Basophils # (Auto) 0.0 CBC Comment DIFF FINAL Differential Comment Prothrombin Time 30.5 Prothromb Time International 2.6 Ratio Sodium Level 141 Potassium Level 4.0 Chloride Level 98 Carbon Dioxide Level 36.4 Anion Gap 7 Blood Urea Nitrogen 33 Creatinine 1.42 Estimat Glomerular Filtration 48 Rate Random Glucose 70 Calcium Level 8.9 Phosphorus Level 3.0 Magnesium Level 2.2 Total Bilirubin 0.6 Aspartate Amino Transf 26 (AST/SGOT) Alanine Aminotransferase 13 (ALT/SGPT) Alkaline Phosphatase 63 Total Protein 5.6 Albumin 2.4 Assessment and Plan Plan Pt presents with severe PAD manifesting as tissue loss CTA with runoff ordered Will continue to follow [facility] [phone] Zabrina Kraft Oct 18, 2016 12:26
[2016-10-18] MEDS ORDERED: IOHEXOL 350 MG/ML 10 ML VIAL (for RAD DIAG) IV ONE (14:09)
--- NOTE | 2016-10-18 14:50 | RADRPT ---
EXAM DATE/TIME: 10/18/2016 13:56 [facility] COMPARISON: No previous studies available for comparison. INDICATIONS : Generalized weakness RADIATION DOSE: 67.88 CTDIvol (mGy) MEDICAL HISTORY : Congestive hearrt failure. Hypertension. Cardiovascular disease SURGICAL HISTORY : None. ENCOUNTER: Initial ACUITY: 1 day PAIN SCALE: 0/10 LOCATION: cranial TECHNIQUE: Multiple contiguous axial images were obtained of the head. Using automated exposure control and adj ustment of the mA and/or kV according to patient size, radiation dose was kept as low as reasonably a chievable to obtain optimal diagnostic quality images. FINDINGS: CEREBRUM: The ventricles are normal for age. No evidence of midline shift, mass lesion, hemorrhage or acute in farction. No extra-axial fluid collections are seen. POSTERIOR FOSSA: The cerebellum and brainstem are intact. The 4th ventricle is midline. The cerebellopontine angle i s unremarkable. EXTRACRANIAL: The visualized portion of the orbits is intact. SKULL: The calvaria is intact. No evidence of skull fracture. CONCLUSION: 1. No acute intracranial abnormality is identified. Oh Farfan MD on October 18, 2016 at 14:47 Board Certified Radiologist. This report was verified electronically.
--- NOTE | 2016-10-18 14:56 | HHI.PR ---
Subjective Remarks denies cp/sob stable vital signs creatinine trending down borderline urine output Objective Vitals Vital Signs Date Time Temp Pulse Resp B/P Pulse Ox O2 Delivery O2 Flow Rate FiO2 10/18/16 10:47 94 Nasal Cannula 4.00 10/18/16 08:30 61 10/18/16 08:30 Nasal Cannula 2.00 10/18/16 08:00 97.9 60 20 111/53 100 10/18/16 04:00 97.6 56 22 112/59 98 10/18/16 00:00 98.0 59 22 104/55 96 10/17/16 21:20 Nasal Cannula 2.50 10/17/16 19:42 96.5 64 20 100/58 97 10/17/16 18:08 Nasal Cannula 4.00 10/17/16 16:00 98.5 64 18 109/55 100 10/17/16 15:58 65 I/O 10/17/16 10/17/16 10/17/16 10/18/16 10/18/16 10/18/16 07:00 15:00 23:00 07:00 15:00 23:00 Intake Total 370 ml 832 ml Output Total 625 ml 600 ml Balance -255 ml 232 ml Intake Oral 370 ml 240 ml IV Total 592 ml Output Urine Total 625 ml 600 ml # Voids 1 # Bowel Movements 0 0 Result Diagram: 10/18/16 0630 10/18/16 0630 Imaging Last Impressions Lower Extremity Ultrasound 10/13/16 0000 Signed Impressions: Service Date/Time: Thursday, October 13, 2016 08:32 - CONCLUSION: Negative for deep venous thrombosis. Milton Farfan MD FACR Objective Remarks GENERAL: This is a well-nourished, well-developed patient, in no apparent distress. CARDIOVASCULAR: Regular rate and regular rhythm without murmurs, gallops, or rubs. RESPIRATORY: mild bilateral wheezing. GASTROINTESTINAL: Abdomen soft, non-tender, nondistended. Normal, active bowel sounds MUSCULOSKELETAL: left leg with erythema and left foot cold to touch NEURO: Alert & Oriented x4 to person, place, time, situation. Moves all ext x4 Procedures none Medications and IVs Current Medications Medications (Trade) Dose Ordered Sig/Jennifer Route Start Time Stop Time Status Last Admin (NS Flush) 2 ml UNSCH PRN IV FLUSH 10/12/16 21:45 (NS Flush) 2 ml BID IV FLUSH 10/13/16 09:00 10/16/16 20:48 (Narcan Inj) 0.4 mg UNSCH PRN IV 10/12/16 21:45 (Xanax) 0.5 mg DAILY PO 10/13/16 09:00 10/18/16 08:23 (Procardia Xl) 60 mg BID PO 10/13/16 09:00 10/18/16 12:12 (Spiriva Inh) 18 mcg DAILY INH 10/13/16 09:00 10/18/16 08:24 Pravastatin Sodium 20 mg 20 mg DAILY PO 10/13/16 09:00 10/18/16 08:23 Levofloxacin/ Dextrose 150 ml @ 100 mls/hr Q48H IV 10/12/16 23:00 10/16/16 22:28 (NS 1000 ml Inj) 1,000 ml @ 50 mls/hr Q20H IV 10/13/16 09:45 Hold 10/15/16 22:08 (Lopressor) 12.5 mg Q12HR PO 10/15/16 11:00 10/18/16 12:12 Miscellaneous 1 ea 1 ea UNSCH PRN OTHER 10/15/16 10:15 10/16/16 09:21 Lactated Ringer's 1,000 ml @ 0 mls/hr Q0M PRN IV 10/17/16 06:45 10/20/16 06:44 (NS 500 ml Inj) 500 ml @ 30 mls/hr [id number] PRN IV 10/17/16 06:45 10/20/16 06:44 (Morphine Inj) 2 mg Q4H PRN IV 10/17/16 08:00 10/17/16 08:51 (Morphine Inj) 4 mg Q4H PRN IV 10/17/16 08:00 Urinary Catheter: No Vascular Central Line Catheter: No A/P Problem List: (1) Ischemia of left lower extremity ICD Code: I99.8 Status: Acute (2) MARLYN (acute kidney injury) ICD Code: N17.9 Status: Acute (3) Non-sustained ventricular tachycardia ICD Code: I47.2 Status: Acute (4) COPD (chronic obstructive pulmonary disease) ICD Code: J44.9 Status: Chronic (5) History of CVA (cerebrovascular accident) ICD Code: Z86.73 Status: Chronic (6) HTN (hypertension) ICD Code: I10 Status: Chronic (7) Atrial fibrillation ICD Code: I48.91 Status: Acute Assessment and Plan (1) Ischemia of left lower extremity Plan: Patient was admitted to the medical floor and restless surgery consulted. The patient underwent left lower extremity angiogram with findings described as severe inflow and outflow disease. Vascular surgery recommends CTA A/P 2 toes, very likely to meet major amputation. Consult for second opinion has been placed by vascular surgery. 4/5 Patient for CTA w runoff today (2) MARLYN (acute kidney injury) Plan: Likely prerenal azotemia, creatinine continues to trend down . Continue to monitor BUN/creatinine, strict I's and O's, avoid nephrotoxins. Patient status post angiogram that could result in further kidney injury. Continue to monitor BUN/creatinine. Continue IV fluids. (3) Non-sustained ventricular tachycardia Plan: Echocardiogram showed EF of 35%. The patient started on metoprolol and is being monitored on telemetry. Cardiology consultation appreciated. (4) COPD (chronic obstructive pulmonary disease) Plan: Seems to be stable. Patient is oxygen dependent. Continue Spiriva with neck treatments. (5) History of CVA (cerebrovascular accident) Plan: Continue statin, patient previously on Coumadin on hold now for planned procedure. INR 2.3, continue to monitor PT/INR and start heparin drip once INR falls below 2. (6) HTN (hypertension) Plan: Continue Procardia and metoprolol. BP seems to be stable. Continue to monitor vital signs. (7) Atrial fibrillation Plan: EKG reviewed by me showed atrial flutter with a ventricular rate of 62 bpm. Atrial fibrillation/atrial flutter is rate controlled, continue beta shelly which has been started by cardiology. Echocardiogram showed a systolic function moderately reduced with an EF of 35-40 %. Diffuse hypokinesis. Trace aortic regurgitation. Mild to moderate mitral valve regurgitation. Moderate tricuspid regurgitation. Cardiology consulted, appreciate recommendations. Discharge Planning Continue to monitor in the medical floor. Problem Qualifiers (1) COPD (chronic obstructive pulmonary disease): Qualified Code: J42 - Chronic bronchitis, unspecified chronic bronchitis type (2) HTN (hypertension): Qualified Code: I10 - Essential hypertension (3) Atrial fibrillation: Qualified Code: I48.2 - Chronic atrial fibrillation Yfn Hernandez MD Oct 18, 2016 14:56
[2016-10-18] MEDS ORDERED: SODIUM CHLOR 0.9% 1000 ML INJ 1,000 ML IV SCH (15:00)
[2016-10-18] MEDS: RESP: ALBUTEROL 1.25 MG/3 ML NEB (PRN) NEB ×2 (16:28→22:16)
--- NOTE | 2016-10-18 19:45 | RADRPT ---
EXAM DATE/TIME: 10/18/2016 14:02 [facility] COMPARISON: No previous studies available for comparison. INDICATIONS : Peripheral artery disease in patient with ischemic left foot IV CONTRAST: 100 cc Omnipaque 350 (iohexol) IV RADIATION DOSE: 9.79 CTDIvol (mGy) MEDICAL HISTORY : Cardiovascular disease. Congestive heart failure. Hypertension. SURGICAL HISTORY : None. ENCOUNTER: Initial ACUITY: 1 day PAIN SCALE: 7/10 LOCATION: Left foot TECHNIQUE: Volumetric scanning was performed using a multi-row detector CT scanner. The data was post processed with a variety of visualization algorithms including full volume maximum intensity projection, multi -planar sliding thin slab reformation, curved planar reformation, and surface rendering techniques. Using automated exposure control and adjustment of the mA and/or kV according to patient size, radiat ion dose was kept as low as reasonably achievable to obtain optimal diagnostic quality images. FINDINGS: The abdominal aorta is notable for severe atheromatous irregularity above a total occlusion which occ urs just below the level of the renal arteries. The visceral vessels are severely diseased with high- grade celiac, SMA and renal stenoses. The iliacs are occluded throughout with reconstitution of hypog astric branches on both sides. On the right side, the common femoral artery reconstitutes. There is severe common femoral artery dis ease present, mainly calcific posterior plaquing. The profunda branches are patent. The superficial f emoral artery is small in caliber but patent. There is moderate eccentric calcific disease in the add uctor hiatus region. The popliteal artery is small in caliber with patchy eccentric calcific disease. 3 patent tibial vessels appear to be present throughout. In the contralateral left leg, the common femoral artery appears to be totally or subtotally occluded . The proximal profunda branches reconstitute. The proximal SFA is occluded. The SFA faintly reconsti tutes in the proximal thigh and continues as a severely diseased very small caliber vessel into the p opliteal which is a relatively more healthy appearing vessel, however also very small in caliber. The tibial vessels appear satisfactory. Elsewhere on the exam, note is made of large bilateral pleural effusions, left worse than right. Lung base atelectasis is present. There is a large calcified disc herniation in the visualized lower thor acic region which appears to produce significant thoracic canal compromise. The liver has a mildly cirrhotic appearance with diffuse steatosis. Urinary bladder is mildly dilated . CONCLUSION: Aortoiliac occlusion. The left common femoral artery is occluded. Profunda branches reconstitute. Left superficial femoral artery is proximally occluded and severely diseased following reconstitution . No healthy appearing potential target vessels above the calf on the left. Less severe runoff changes on the right as described. Severe visceral arterial disease Large pleural effusions. Sizable calcific thoracic disc herniation, incompletely seen Willis Chen MD on October 18, 2016 at 19:30 Board Certified Radiologist. This report was verified electronically.
[2016-10-18] MEDS: LEVOFLOXACIN 750 MG PREMIX INJ 150 ML IV SCH (22:40)
[2016-10-18] MEDS: MORPHINE SULFATE 4 MG/ML INJ IV PRN (22:40)
[2016-10-19] VITALS (11 sets, daily range): BP systolic 94–131; BP diastolic 53–60; PULSE 60–69; RESP 16–22; TEMP 97.4–99; O2SAT 90–98
[2016-10-19] MEDS: MORPHINE SULFATE 4 MG/ML INJ IV PRN ×2 (06:43→11:35)
[2016-10-19] MEDS: PRAVASTATIN SOD 20 MG TAB PO SCH (09:24)
[2016-10-19] MEDS: METOPROLOL TARTRATE 25 MG TAB PO SCH ×2 (09:24→20:27)
[2016-10-19] MEDS: NIFEdipine 60 MG SUSTAINED RELEASE TAB PO SCH ×2 (09:24→20:23)
[2016-10-19] MEDS: ALPRAZolam 0.5 MG TAB PO SCH (09:25)
[2016-10-19] MEDS: TIOTROPIUM BROMIDE 18 MCG INH INH SCH (09:27)
[2016-10-19] MEDS: SODIUM CHLORIDE 0.9% FLUSH 10 ML FLUSH IV FLUSH SCH ×2 (09:27→20:24)
--- NOTE | 2016-10-19 12:03 | PD.CARD.PN ---
Subjective Subjective Remarks No acute distress this morning. C/O SOB greater than baseline. No CP or palpitations. (Dalila Riley) Objective Vital Signs / I&O Vital Signs Date Time Temp Pulse Resp B/P Pulse Ox O2 Delivery O2 Flow Rate FiO2 10/19/16 10:36 92 Nasal Cannula 6.00 10/19/16 09:34 Nasal Cannula 6.00 10/19/16 09:34 69 10/19/16 08:08 90 Nasal Cannula 6.00 10/19/16 04:38 98.0 60 22 106/59 97 10/19/16 00:13 97.8 66 18 118/60 98 10/18/16 22:19 98 Simple Mask 6.00 10/18/16 20:00 97.5 64 22 113/56 98 10/18/16 20:00 65 10/18/16 16:00 94.6 66 20 104/61 97 10/18/16 12:00 97.8 62 20 110/55 78 I/O 10/18/16 10/18/16 10/18/16 10/19/16 10/19/16 10/19/16 07:00 15:00 23:00 07:00 15:00 23:00 Intake Total 1181 ml 750 ml Balance 1181 ml 750 ml Intake Oral 520 ml 750 ml IV Total 661 ml # Voids 1 1 1 # Bowel Movements 0 0 0 Physical Exam GENERAL: Elderly male, no distress, on O2 SKIN: Warm and dry. HEAD: Normocephalic. EYES: No scleral icterus. No injection or drainage. NECK: Supple, trachea midline. CARDIOVASCULAR: Irreg irreg RESPIRATORY: Breath sounds equal bilaterally. No accessory muscle use. Nasal cannula GASTROINTESTINAL: Abdomen soft, non-tender, nondistended. MUSCULOSKELETAL: Ischemic left lower leg BACK: Nontender without obvious deformity. Laboratory Laboratory Tests Test 10/17/16 10/18/16 05:49 06:30 Red Blood Count 4.23 MIL/MM3 4.29 MIL/MM3 (4.50-5.90) (4.50-5.90) Hemoglobin 11.3 GM/DL 11.5 GM/DL (13.0-17.0) (13.0-17.0) Hematocrit 35.2 % 35.9 % (39.0-51.0) (39.0-51.0) Mean Corpuscular Hemoglobin 26.7 PG 26.8 PG (27.0-34.0) (27.0-34.0) Neutrophils (%) (Auto) 82.4 % 83.1 % (16.0-70.0) (16.0-70.0) Lymphocytes # (Auto) 0.8 TH/MM3 0.7 TH/MM3 (1.0-4.8) (1.0-4.8) Prothrombin Time 26.6 SEC 30.5 SEC (9.8-11.6) (9.8-11.6) Carbon Dioxide Level 37.0 MEQ/L 36.4 MEQ/L (21.0-32.0) (21.0-32.0) Blood Urea Nitrogen 35 MG/DL (7-18) 33 MG/DL (7-18) Creatinine 1.49 MG/DL 1.42 MG/DL (0.60-1.30) (0.60-1.30) Estimat Glomerular Filtration 45 ML/MIN (>89) 48 ML/MIN (>89) Rate Lymphocytes (%) (Auto) 7.6 % (9.0-44.0) Random Glucose 70 MG/DL (74-106) Total Protein 5.6 GM/DL (6.4-8.2) Albumin 2.4 GM/DL (3.4-5.0) Imaging Last [address] 10/18/16 0000 Signed Impressions: Service Date/Time: Tuesday, October 18, 2016 13:56 - CONCLUSION: 1. No acute intracranial abnormality is identified. 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 Profunda branches reconstitute. Left superficial femoral artery is proximally occluded and severely diseased following reconstitution. No healthy appearing potential target vessels above the calf on the left. Less severe runoff changes on the right as described. Severe visceral arterial disease Large pleural effusions. Sizable calcific thoracic disc herniation, incompletely seen Willis Chen MD (Dalila Riley) Assessment and Plan Assessment and Plan ASSESSMENT 1. PVD, Ischemic LLE with gangrenous 2nd, 3rd toes 2. SOB, large pleural effusions 3. Acute Renal Failure 4. Asymptomatic Non-sustained V-tach, EF 35-40% 5. Atrial Fibrillation on Coumadin prior to admission. INR 2.6 6. Mitral Regurgitation 7. Tricuspid Regurgitation 8. HTN PLAN: Consult for pulmonary for large pleural effusions. If thoracentesis indicated, pt will need heparin bridge Patient had recent contrast with borderline renal function. Currently on IVF. Stop after one bag. May benefit from diuresis. Continue metoprolol. Patient has history of NSVT. Assessment and plan discussed with Dr. Coto (Dalila Riley) Assessment and Plan Still has significant pleural effusions may need thoracentesis. (Kip Coto MD) Dalila Riley Oct 19, 2016 12:03 Kip Coto MD Oct 19, 2016 14:59
--- NOTE | 2016-10-19 14:30 | PD.VS.PN ---
Subjective Subjective/Hospital Course Pt in bed resting comfortably alert and in NAD Tolerating diet Pt without complaints (Zabrina Kraft) Objective Vitals/I&O Date Time Temp Pulse Resp B/P Pulse Ox O2 Delivery O2 Flow Rate FiO2 10/19/16 10:36 92 Nasal Cannula 6.00 10/19/16 09:34 Nasal Cannula 6.00 10/19/16 09:34 69 10/19/16 08:08 90 Nasal Cannula 6.00 10/19/16 04:38 98.0 60 22 106/59 97 10/19/16 00:13 97.8 66 18 118/60 98 10/18/16 22:19 98 Simple Mask 6.00 10/18/16 20:00 97.5 64 22 113/56 98 10/18/16 20:00 65 10/18/16 16:00 94.6 66 20 104/61 97 Physical Exam GENERAL: A&OX3, NAD, GCS15 SKIN: Warm and dry, Left foot cold with purplish discoloration from foot to ankle NECK: Supple, No JVD CARDIOVASCULAR: RRR RESPIRATORY: Breath sounds equal with expiratory wheezes bilaterally. No accessory muscle use. GASTROINTESTINAL: Abdomen soft, non-tender, nondistended. Non palpable L DP/PT Right DP with phasic signals heard via doppler (Zabrina Kraft) Imaging Last [address] 10/18/16 0000 Signed Impressions: Service Date/Time: Tuesday, October 18, 2016 13:56 - CONCLUSION: 1. No acute intracranial abnormality is identified. 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 Profunda branches reconstitute. Left superficial femoral artery is proximally occluded and severely diseased following reconstitution. No healthy appearing potential target vessels above the calf on the left. Less severe runoff changes on the right as described. Severe visceral arterial disease Large pleural effusions. Sizable calcific thoracic disc herniation, incompletely seen Willis Chen MD (Zabrina Kraft) Assessment and Plan Plan Pt presents with severe PAD manifesting as tissue loss Potential for LLE amputation Consult for second opinion has been placed Zabrina CROWDER [facility]/Madeline [phone] (Zabrina Kraft) Plan I agree with above A/P. Bryan Null DO, FACS (Bryan Null DO) Zabrina Kraft Oct 19, 2016 14:30 Bryan Null DO Oct 19, 2016 16:24
--- NOTE | 2016-10-19 17:01 | HHI.PR ---
Subjective Remarks Patient complained earlier of sob denies sob to me denies cp has increased demand of oxygen pain controlled Objective Vitals Vital Signs Date Time Temp Pulse Resp B/P Pulse Ox O2 Delivery O2 Flow Rate FiO2 10/19/16 10:36 92 Nasal Cannula 6.00 10/19/16 09:34 Nasal Cannula 6.00 10/19/16 09:34 69 10/19/16 08:08 90 Nasal Cannula 6.00 10/19/16 04:38 98.0 60 22 106/59 97 10/19/16 00:13 97.8 66 18 118/60 98 10/18/16 22:19 98 Simple Mask 6.00 10/18/16 20:00 97.5 64 22 113/56 98 10/18/16 20:00 65 I/O 10/18/16 10/18/16 10/18/16 10/19/16 10/19/16 10/19/16 07:00 15:00 23:00 07:00 15:00 23:00 Intake Total 1181 ml 750 ml 822 ml Balance 1181 ml 750 ml 822 ml Intake Oral 520 ml 750 ml IV Total 661 ml 822 ml # Voids 1 1 1 # Bowel Movements 0 0 0 Result Diagram: 10/18/16 0630 10/18/16 0630 Imaging Last Impressions Chest X-Ray 10/19/16 0000 Signed Impressions: Service Date/Time: October 16:43 - CONCLUSION: Large left effusion with extensive consolidation, likely significant collapse. Moderate right base infiltrate and effusion Willis Chen MD Head CT 10/18/16 0000 Signed Impressions: Service Date/Time: Tuesday, October 18, 2016 13:56 - CONCLUSION: 1. No acute intracranial abnormality is identified. 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 Profunda branches reconstitute. Left superficial femoral artery is proximally occluded and severely diseased following reconstitution. No healthy appearing potential target vessels above the calf on the left. Less severe runoff changes on the right as described. Severe visceral arterial disease Large pleural effusions. Sizable calcific thoracic disc herniation, incompletely seen Willis Chen MD Lower Extremity Ultrasound 10/13/16 0000 Signed Impressions: Service Date/Time: Thursday, October 13, 2016 08:32 - CONCLUSION: Negative for deep venous thrombosis. Milton Farfan MD FACR Objective Remarks GENERAL: This is a well-nourished, well-developed patient, in no apparent distress. CARDIOVASCULAR: Regular rate and regular rhythm without murmurs, gallops, or rubs. RESPIRATORY: Decreased breath sounds on left lung field. Right clear to auscultation. No crackles, wheezing or rhonchi auscultated. GASTROINTESTINAL: Abdomen soft, non-tender, nondistended. Normal, active bowel sounds MUSCULOSKELETAL: left leg with erythema and left foot cold to touch NEURO: Alert & Oriented x4 to person, place, time, situation. Moves all ext x4 Procedures none Medications and IVs Current Medications Medications (Trade) Dose Ordered Sig/Jennifer Route Start Time Stop Time Status Last Admin (NS Flush) 2 ml UNSCH PRN IV FLUSH 10/12/16 21:45 (NS Flush) 2 ml BID IV FLUSH 10/13/16 09:00 10/16/16 20:48 (Narcan Inj) 0.4 mg UNSCH PRN IV 10/12/16 21:45 (Xanax) 0.5 mg DAILY PO 10/13/16 09:00 10/19/16 09:25 (Procardia Xl) 60 mg BID PO 10/13/16 09:00 10/19/16 09:24 (Spiriva Inh) 18 mcg DAILY INH 10/13/16 09:00 10/19/16 09:27 Pravastatin Sodium 20 mg 20 mg DAILY PO 10/13/16 09:00 10/19/16 09:24 (Levaquin 750 Mg Premix Inj) 150 ml @ 100 mls/hr Q48H IV 10/12/16 23:00 10/18/16 22:40 (Lopressor) 12.5 mg Q12HR PO 10/15/16 11:00 10/19/16 09:24 Miscellaneous 1 ea 1 ea UNSCH PRN OTHER 10/15/16 10:15 10/16/16 09:21 Lactated Ringer's 1,000 ml @ 0 mls/hr Q0M PRN IV 10/17/16 06:45 10/20/16 06:44 (NS 500 ml Inj) 500 ml @ 30 mls/hr [id number] PRN IV 10/17/16 06:45 10/20/16 06:44 (Morphine Inj) 2 mg Q4H PRN IV 10/17/16 08:00 10/19/16 11:35 (Morphine Inj) 4 mg Q4H PRN IV 10/17/16 08:00 Urinary Catheter: No A/P Problem List: (1) Ischemia of left lower extremity ICD Code: I99.8 Status: Acute (2) MARLYN (acute kidney injury) ICD Code: N17.9 Status: Acute (3) Non-sustained ventricular tachycardia ICD Code: I47.2 Status: Acute (4) COPD (chronic obstructive pulmonary disease) ICD Code: J44.9 Status: Chronic (5) History of CVA (cerebrovascular accident) ICD Code: Z86.73 Status: Chronic (6) HTN (hypertension) ICD Code: I10 Status: Chronic (7) Atrial fibrillation ICD Code: I48.91 Status: Acute (8) Bilateral pleural effusion ICD Code: J90 Status: Acute Plan: Patient has a large left pleural effusion and a moderate right pleural effusion. As seen on CTA of the aorta with runoff. I will order a chest x-ray. Pulmonary consulted for drainage of large effusions. I will give IV vitamin K since INR still elevated. (9) Acute hypoxemic respiratory failure ICD Code: J96.01 Status: Acute Plan: Due to large pleural effusions. Patient decided into the high 70s, patient requiring more oxygen to keep his oxygen saturation. Assessment and Plan (1) Ischemia of left lower extremity Plan: Patient was admitted to the medical floor and restless surgery consulted. The patient underwent left lower extremity angiogram with findings described as severe inflow and outflow disease. Vascular surgery recommends CTA A/P 2 toes, very likely to meet major amputation. Consult for second opinion has been placed by vascular surgery. 10/19 the patient is status post CTA with runoff which showed aorto iliac occlusion. Left common femoral arteries occlude it. The left superficial femoral arteries proximally included and severely diseased following with constitution. No healthy-appearing potential target vessel above the calf on the left. Severe visceral arterial disease large pleural effusions. Vascular surgery recommends amputation. Second opinion consult was placed. (2) MARLYN (acute kidney injury) Plan: Likely prerenal azotemia, creatinine continues to trend down . Continue to monitor BUN/creatinine, strict I's and O's, avoid nephrotoxins. Patient status post angiogram that could result in further kidney injury. Continue to monitor BUN/creatinine. Continue IV fluids. (3) Non-sustained ventricular tachycardia Plan: Echocardiogram showed EF of 35%. The patient started on metoprolol and is being monitored on telemetry. Cardiology consultation appreciated. (4) COPD (chronic obstructive pulmonary disease) Plan: Seems to be stable. Patient is oxygen dependent. Continue Spiriva with neck treatments. (5) History of CVA (cerebrovascular accident) Plan: Continue statin, patient previously on Coumadin on hold now for planned procedure. INR 2.3, continue to monitor PT/INR and start heparin drip once INR falls below 2. (6) HTN (hypertension) Plan: Continue Procardia and metoprolol. BP seems to be stable. Continue to monitor vital signs. (7) Atrial fibrillation Plan: EKG reviewed by me showed atrial flutter with a ventricular rate of 62 bpm. Atrial fibrillation/atrial flutter is rate controlled, continue beta shelly which has been started by cardiology. Echocardiogram showed a systolic function moderately reduced with an EF of 35-40 %. Diffuse hypokinesis. Trace aortic regurgitation. Mild to moderate mitral valve regurgitation. Moderate tricuspid regurgitation. Cardiology consulted, appreciate recommendations. INR is therapeutic, I will give vitamin K to try to bring the INR down so that the patient could have drainage of the pleural effusion. Continue to monitor PT /INR daily. Discharge Planning Continue to monitor in the medical floor. Problem Qualifiers (1) COPD (chronic obstructive pulmonary disease): Qualified Code: J42 - Chronic bronchitis, unspecified chronic bronchitis type (2) HTN (hypertension): Qualified Code: I10 - Essential hypertension (3) Atrial fibrillation: Qualified Code: I48.2 - Chronic atrial fibrillation Yfn Hernandez MD Oct 19, 2016 17:01
--- NOTE | 2016-10-19 17:04 | RADRPT ---
EXAM DATE/TIME: 10/19/2016 16:43 [place] COMPARISON: CTA RUNOFF W 3D RECON, October 18, 2016, 14:02. INDICATIONS : Short of breath MEDICAL HISTORY : Cardiovascular disease. Congestive heart failure. Hypertension. SURGICAL HISTORY : None. ENCOUNTER: Subsequent ACUITY: 2 days PAIN SCORE: 0/10 LOCATION: chest FINDINGS: There is near-complete opacification of the left hemithorax consistent with extensive consolidative c hange and large effusion. On the right, there is mild basilar infiltrate and effusion. There does mis ear to be volume loss on the left with leftward cardiomediastinal shift. CONCLUSION: Large left effusion with extensive consolidation, likely significant collapse. Moderate right base in filtrate and effusion Willis Chen MD on October 19, 2016 at 16:55 Board Certified Radiologist. This report was verified electronically.
[2016-10-19] MEDS ORDERED: BUMETANIDE INJ 1 MG/4 ML VIAL IV PUSH ONE (19:45)
[2016-10-19] MEDS ORDERED: PHYTONADIONE INJ 10 MG in DEXTROSE 5% IN WATER INJ 50 ML IV ONE ×2 (20:00)
--- NOTE | 2016-10-19 20:04 | HHI.PR ---
Addendum to Inpatient Note Addendum Reason: Additional Documentation Additional Information I called Lefty Newman who is the patient's contact listed in our documentation. I could not hold of him as his phone goes straight into voicemail. I spoke to the patient's daughter Anitha who lives in [place] and is a nurse. I discussed the patient's current medical status and the possible need of leg amputation as well as the need for a thoracentesis. I also discussed the CODE STATUS. The patient's daughter states that the patient would not want to have extreme measures undertaken or to be intubated and mechanically ventilated. I will place the patient on DO NOT RESUSCITATE status. This was discussed again with the patient's daughter Anitha. Patient has a however his has Alzheimer's dementia. Yfn Hernandez MD Oct 19, 2016 20:04
[2016-10-19 20:55] LABS: AUTOMATED NEUTROPHIL # 8.9 TH/MM3 (1.8-7.7); BASOPHIL # 0.1 TH/MM3 (0-0.2); BASOPHIL % 0.6 % (0.0-2.0); EOSINOPHIL # 0.1 TH/MM3 (0-0.4); EOSINOPHIL % 0.7 % (0.0-4.0); HEMO FLAGS DIFF FINAL; LYMPHOCYTE # 0.6 TH/MM3 (1.0-4.8); MEAN CELL VOLUME 84.2 FL (80.0-100.0); MEAN CORPUSCULAR HEMOGLOBIN 27.4 PG (27.0-34.0); MEAN CORPUSCULAR HGB CONC 32.6 % (32.0-36.0); MONO % 6.5 % (0.0-8.0); NEUT % 86.2 % (16.0-70.0); PLATELET COUNT 207 TH/MM3 (150-450); RED BLOOD COUNT 4.04 MIL/MM3 (4.50-5.90); RED CELL DISTRIBUTION WIDTH 15.8 % (11.6-17.2); WHITE BLOOD COUNT 10.3 TH/MM3 (4.0-11.0)
[2016-10-19 21:17] LABS: BICARBONATE 40.4 MEQ/L (21.0-32.0); POTASSIUM 4.9 MEQ/L (3.5-5.1)
[2016-10-20] VITALS (12 sets, daily range): BP systolic 80–106; BP diastolic 46–80; PULSE 44–64; RESP 16–26; TEMP 97.8–98.6; O2SAT 74–98
[2016-10-20] MEDS: MORPHINE SULFATE 4 MG/ML INJ IV PRN ×2 (01:48→21:02)
[2016-10-20 07:04] LABS: HEMATOCRIT 32.8 % (39.0-51.0); MEAN CELL VOLUME 84.3 FL (80.0-100.0); MEAN CORPUSCULAR HEMOGLOBIN 26.6 PG (27.0-34.0); MEAN CORPUSCULAR HGB CONC 31.6 % (32.0-36.0); PLATELET COUNT 195 TH/MM3 (150-450); RED BLOOD COUNT 3.89 MIL/MM3 (4.50-5.90); RED CELL DISTRIBUTION WIDTH 15.5 % (11.6-17.2); REVIEW FLAG FINAL; WHITE BLOOD COUNT 12.5 TH/MM3 (4.0-11.0)
[2016-10-20 07:08] LABS: INTERNATIONAL NORMALIZED RATIO 1.6 RATIO; PROTHROMBIN TIME - PATIENT 18.4 SEC (9.8-11.6)
[2016-10-20 07:30] LABS: BICARBONATE 35.5 MEQ/L (21.0-32.0); MAGNESIUM 2.3 MG/DL (1.5-2.5)
[2016-10-20] MEDS: RESP: ALBUTEROL 1.25 MG/3 ML NEB (PRN) NEB (08:02)
[2016-10-20] MEDS: SODIUM CHLORIDE 0.9% FLUSH 10 ML FLUSH IV FLUSH SCH ×2 (08:34→21:00)
[2016-10-20] MEDS: METOPROLOL TARTRATE 25 MG TAB PO SCH (08:34)
[2016-10-20] MEDS: NIFEdipine 60 MG SUSTAINED RELEASE TAB PO SCH (08:34)
[2016-10-20] MEDS: PRAVASTATIN SOD 20 MG TAB PO SCH (08:34)
[2016-10-20] MEDS: ALPRAZolam 0.5 MG TAB PO SCH (08:34)
[2016-10-20] MEDS: TIOTROPIUM BROMIDE 18 MCG INH INH SCH (08:35)
--- NOTE | 2016-10-20 08:41 | PD.VS.PN ---
Subjective Subjective/Hospital Course Pt in bed resting comfortably alert and in NAD Much more alert than previously. Does not endorse any foot pain Objective Vitals/I&O Date Time Temp Pulse Resp B/P Pulse Ox O2 Delivery O2 Flow Rate FiO2 10/20/16 08:03 88 Nasal Cannula 6.00 10/20/16 08:00 98.0 64 18 99/60 92 10/20/16 03:20 97.8 59 16 99/57 96 10/19/16 23:58 99.0 62 16 105/59 95 10/19/16 20:58 98.4 62 20 94/53 98 10/19/16 20:00 Nasal Cannula 6.00 10/19/16 19:50 95 Nasal Cannula 6.00 10/19/16 16:00 97.4 63 16 107/60 95 10/19/16 12:00 97.7 66 16 110/58 95 10/19/16 10:36 92 Nasal Cannula 6.00 10/19/16 09:34 Nasal Cannula 6.00 10/19/16 09:34 69 10/20/16 10/20/16 10/20/16 07:00 15:00 23:00 Intake Total 240 ml Output Total 0 ml Balance 240 ml Physical Exam L lower leg and foot profoundly ischemic, dulce tissue loss No odor Laboratory Laboratory Tests Test 10/19/16 10/20/16 20:37 06:14 White Blood Count 10.3 12.5 Red Blood Count 4.04 3.89 Hemoglobin 11.1 10.4 Hematocrit 34.0 32.8 Mean Corpuscular Volume 84.2 84.3 Mean Corpuscular Hemoglobin 27.4 26.6 Mean Corpuscular Hemoglobin 32.6 31.6 Concent Red Cell Distribution Width 15.8 15.5 Platelet Count 207 195 Mean Platelet Volume 9.2 9.4 Neutrophils (%) (Auto) 86.2 Lymphocytes (%) (Auto) 6.0 Monocytes (%) (Auto) 6.5 Eosinophils (%) (Auto) 0.7 Basophils (%) (Auto) 0.6 Neutrophils # (Auto) 8.9 Lymphocytes # (Auto) 0.6 Monocytes # (Auto) 0.7 Eosinophils # (Auto) 0.1 Basophils # (Auto) 0.1 CBC Comment DIFF FINAL Differential Comment Sodium Level 136 136 Potassium Level 4.9 5.0 Chloride Level 94 95 Carbon Dioxide Level 40.4 35.5 Anion Gap 2 6 Blood Urea Nitrogen 42 46 Creatinine 2.43 2.91 Estimat Glomerular Filtration 26 21 Rate Random Glucose 124 102 Calcium Level 8.5 8.5 Prothrombin Time 18.4 Prothromb Time International 1.6 Ratio Phosphorus Level 4.0 Magnesium Level 2.3 Imaging Last 48 hours Impressions Chest X-Ray 10/19/16 0000 Signed Impressions: Service Date/Time: October 16:43 - CONCLUSION: Large left effusion with extensive consolidation, likely significant collapse. Moderate right base infiltrate and effusion Willis Chen MD Assessment and Plan Plan Mr. 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 He would require a combined inflow/outflow procedure, which at a minimum would be a L ax-fem, L groin reconstruction, and distal bypass. Given his comorbidities and overall limited chance of saving the foot given the extent of tissue loss, this is not a good option and unfortunately his only option is a major L LE amputation: an AKA. I talked with the patient about it today and he seemed to understand. At present, there is no odor or gross infection to the foot. He should continue to ambulate as tolerated. He needs continued optimization of medical status (cardiac, pleural effusions, and MARLYN with cr 2.9). There is no emergency to the amputation, so long as the foot does not start making him systemically ill, but I think he should have this next week. I will continue to discuss with him and also involve his daughter in [place]. Rg Ouqendo MD FACS anesthesia resident [facility] - [facility] Surgery at [facility] [phone] Rg Oquendo MD Oct 20, 2016 08:41
--- NOTE | 2016-10-20 09:25 | MP ---
cc: RG OQUENDO MD DATE OF SURGERY 10/17/2016 PREOPERATIVE DIAGNOSIS Severe left lower extremity peripheral arterial occlusive disease. POSTOPERATIVE DIAGNOSIS Severe left lower extremity peripheral arterial occlusive disease. PROCEDURE Right common femoral angiogram under ultrasound guidance. ATTENDING SURGEON Rg Oquendo MD ANESTHESIA Local. INDICATIONS FOR PROCEDURE Mr. Reid is a very ill 81-year-old gentleman with left lower extremity tissue loss. He is taken to the operating room for angiographic evaluation and treatment. There is no prior catheterization available for my review. Intraoperatively it was found that he had intense and dense iliac and femoral artery calcifications. I was unable to pass even a wire and limited views of the extremity arterial circulation were obtained. DESCRIPTION OF PROCEDURE Informed consent was obtained from the patient. He was taken to the operating room and placed supine on the operating room table. An appropriate time-out was taken to identify the patient, the operative site and the procedure. Antibiotics were not necessary since it is a clean procedure and we do not plan any implantation of any foreign object. Everyone in the room agreed with the time-out and we proceeded. His bilateral groins were prepped and draped. The right groin was anesthetized with 1% lidocaine. A 21-gauge micropuncture needle was used to access the right common femoral artery. This was done under ultrasonographic guidance and exchanged using Seldinger technique through the micropuncture sheath. An angiogram was obtained. This showed the external iliac artery was occluded. The common femoral artery was densely calcified and there was very poor runoff in the profunda femoris artery. Intense ultrasonographic interrogation of the left common femoral artery was obtained but this revealed an entire calcific jose antonio that was unable to be accessed. The procedure was then terminated and the patient will get a CT scan and ultimately will likely require an above-knee amputation. I had the opportunity to discuss the results of our angiogram with the patient's daughter via telephone as she is in [place] and she seemed to understand. Rg Oquendo MD RJF/SSB /7:49 AM /9:10 AM
--- NOTE | 2016-10-20 10:24 | HHI.PR ---
Subjective Remarks Patient denies chest pain c/o mild shortness of breath denies fevers or chills denies cough Objective Vitals Vital Signs Date Time Temp Pulse Resp B/P Pulse Ox O2 Delivery O2 Flow Rate FiO2 10/20/16 08:03 88 Nasal Cannula 6.00 10/20/16 08:00 98.0 64 18 99/60 92 10/20/16 03:20 97.8 59 16 99/57 96 10/19/16 23:58 99.0 62 16 105/59 95 10/19/16 20:58 98.4 62 20 94/53 98 10/19/16 20:00 Nasal Cannula 6.00 10/19/16 19:50 95 Nasal Cannula 6.00 10/19/16 16:00 97.4 63 16 107/60 95 10/19/16 12:00 97.7 66 16 110/58 95 10/19/16 10:36 92 Nasal Cannula 6.00 I/O 10/19/16 10/19/16 10/19/16 10/20/16 10/20/16 10/20/16 07:00 15:00 23:00 07:00 15:00 23:00 Intake Total 750 ml 360 ml 1072 ml 240 ml Output Total 550 ml 0 ml Balance 750 ml 360 ml 522 ml 240 ml Intake Oral 750 ml 360 ml 200 ml 240 ml IV Total 872 ml Output Urine Total 550 ml 0 ml # Voids 1 # Bowel Movements 0 0 0 Result Diagram: 10/20/16 0614 10/20/16 0614 Imaging Last Impressions Chest X-Ray 10/19/16 0000 Signed Impressions: Service Date/Time: October 16:43 - CONCLUSION: Large left effusion with extensive consolidation, likely significant collapse. Moderate right base infiltrate and effusion Willis Chen MD Head CT 10/18/16 0000 Signed Impressions: Service Date/Time: Tuesday, October 18, 2016 13:56 - CONCLUSION: 1. No acute intracranial abnormality is identified. 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 Profunda branches reconstitute. Left superficial femoral artery is proximally occluded and severely diseased following reconstitution. No healthy appearing potential target vessels above the calf on the left. Less severe runoff changes on the right as described. Severe visceral arterial disease Large pleural effusions. Sizable calcific thoracic disc herniation, incompletely seen Willis Chen MD Lower Extremity Ultrasound 10/13/16 0000 Signed Impressions: Service Date/Time: Thursday, October 13, 2016 08:32 - CONCLUSION: Negative for deep venous thrombosis. Milton Farfan MD FACR Objective Remarks GENERAL: This is a well-nourished, well-developed patient, in mild respiratory distress. CARDIOVASCULAR: Regular rate and regular rhythm without murmurs, gallops, or rubs. RESPIRATORY: Decreased breath sounds on left lung field. Right lung field shows expiratory wheezing. No crackles or rhonchi auscultated. GASTROINTESTINAL: Abdomen soft, non-tender, nondistended. Normal, active bowel sounds MUSCULOSKELETAL: Left leg shows necrotic second and third toes. The left foot has a purple and mottled discoloration. Pulses are not palpable in the left leg. The extremity is cold to touch. NEURO: Alert & Oriented x4 to person, place, time, situation. Moves all ext x4 Procedures none Medications and IVs Current Medications Medications (Trade) Dose Ordered Sig/Jennifer Route Start Time Stop Time Status Last Admin (NS Flush) 2 ml UNSCH PRN IV FLUSH 10/12/16 21:45 (NS Flush) 2 ml BID IV FLUSH 10/13/16 09:00 10/20/16 08:34 (Narcan Inj) 0.4 mg UNSCH PRN IV 10/12/16 21:45 (Xanax) 0.5 mg DAILY PO 10/13/16 09:00 10/20/16 08:34 (Procardia Xl) 60 mg BID PO 10/13/16 09:00 10/20/16 08:34 (Spiriva Inh) 18 mcg DAILY INH 10/13/16 09:00 10/20/16 08:35 Pravastatin Sodium 20 mg 20 mg DAILY PO 10/13/16 09:00 10/20/16 08:34 (Levaquin 750 Mg Premix Inj) 150 ml @ 100 mls/hr Q48H IV 10/12/16 23:00 10/18/16 22:40 (Lopressor) 12.5 mg Q12HR PO 10/15/16 11:00 10/20/16 08:34 (Pill Splitter) 1 ea UNSCH PRN OTHER 10/15/16 10:15 10/16/16 09:21 (Morphine Inj) 2 mg Q4H PRN IV 10/17/16 08:00 10/20/16 01:48 (Morphine Inj) 4 mg Q4H PRN IV 10/17/16 08:00 Urinary Catheter: No Vascular Central Line Catheter: No A/P Problem List: (1) Ischemia of left lower extremity ICD Code: I99.8 Status: Acute (2) MARLYN (acute kidney injury) ICD Code: N17.9 Status: Acute (3) Non-sustained ventricular tachycardia ICD Code: I47.2 Status: Acute (4) COPD (chronic obstructive pulmonary disease) ICD Code: J44.9 Status: Chronic (5) History of CVA (cerebrovascular accident) ICD Code: Z86.73 Status: Chronic (6) HTN (hypertension) ICD Code: I10 Status: Chronic (7) Atrial fibrillation ICD Code: I48.91 Status: Acute (8) Bilateral pleural effusion ICD Code: J90 Status: Acute (9) Acute hypoxemic respiratory failure ICD Code: J96.01 Status: Acute (10) Subtherapeutic international normalized ratio (INR) ICD Code: R79.1 Status: Acute (11) DNR (do not resuscitate) discussion ICD Code: Z71.89 Status: Acute Plan: Last I had a long discussion with the patient's daughter stated his father would not want to be resuscitated or mechanically ventilated. Today the patient is more alert and awake. He is awake and alert and oriented 3 upon my exam. Discussed with him his current clinical condition and the potential for deterioration especially respiratory. He was able to repeat what I explained to him and also concurred with his daughter that he would not want to be resuscitated. No code DO NOT RESUSCITATE has been placed in the chart. Assessment and Plan (1) Ischemia of left lower extremity Plan: Patient was admitted to the medical floor and restless surgery consulted. The patient underwent left lower extremity angiogram with findings described as severe inflow and outflow disease. Vascular surgery recommends CTA A/P 2 toes, very likely to meet major amputation. Consult for second opinion has been placed by vascular surgery. 10/19 the patient is status post CTA with runoff which showed aorto iliac occlusion. Left common femoral arteries occlude it. The left superficial femoral arteries proximally included and severely diseased following with constitution. No healthy-appearing potential target vessel above the calf on the left. Severe visceral arterial disease large pleural effusions. Vascular surgery recommends amputation. Second opinion consult was placed. (2) MARLYN (acute kidney injury) Plan: Likely prerenal azotemia, creatinine continues to trend down . Continue to monitor BUN/creatinine, strict I's and O's, avoid nephrotoxins. Patient status post angiogram that could result in further kidney injury. Continue to monitor BUN/creatinine. Continue IV fluids. 10/20 Now creatinine elevated up to 2.91 from 1.42 likely contrast induced nephropathy since patient had a CTA of the aorta with runoff on 10/18/16. I will consult nephrology. Urine output is marginal. Continue to hold IV fluids in view that patient is volume overloaded with large pleural effusion on the left hemithorax. (3) Non-sustained ventricular tachycardia Plan: Echocardiogram showed EF of 35%. The patient started on metoprolol and is being monitored on telemetry. Cardiology consultation appreciated. 10/20 patient is borderline hypotensive, I will hold beta shelly for now. Continue to monitor on telemetry. (4) COPD (chronic obstructive pulmonary disease) Plan: Patient is oxygen dependent. Continue Spiriva with neck treatments. 10/20 patient has expiratory wheezing in the right lung field. Likely mild COPD exacerbation versus bronchial hyperreactivity from fluid overload. I will give 1 dose of Solu-Medrol 125 mg IV once. Continue duo nebs as needed for signs of breath and wheezing. (5) History of CVA (cerebrovascular accident) Plan: Continue statin, patient previously on Coumadin on hold now for planned procedure. INR 2.3, continue to monitor PT/INR and start heparin drip once INR falls below 2. (6) HTN (hypertension) Plan: Continue Procardia and metoprolol. BP seems to be stable. Continue to monitor vital signs. 10/20 patient now borderline hypotensive. Hold Bacardi and metoprolol. (7) Atrial fibrillation Plan: EKG reviewed by me showed atrial flutter with a ventricular rate of 62 bpm. Atrial fibrillation/atrial flutter is rate controlled, continue beta shelly which has been started by cardiology. Echocardiogram showed a systolic function moderately reduced with an EF of 35-40 %. Diffuse hypokinesis. Trace aortic regurgitation. Mild to moderate mitral valve regurgitation. Moderate tricuspid regurgitation. Cardiology consulted, appreciate recommendations. INR is therapeutic, I will give vitamin K to try to bring the INR down so that the patient could have drainage of the pleural effusion. Continue to monitor PT /INR daily. Will start bridge to heparin after I talk to IR regarding thoracentesis. (8) Bilateral pleural effusion Plan: Patient has a large left pleural effusion and a moderate right pleural effusion. As seen on CTA of the aorta with runoff. I will order a chest x-ray. Pulmonary has been consulted. I will talk to interventional radiology to have a thoracentesis done in the patient since his INR is 1.6. (9) Acute hypoxemic respiratory failure Plan: Due to large pleural effusions. Patient desated into the high 70s yesterday. Patient is deciding to the high 80s today. As above I will place an IR consultation for thoracentesis. Patient is now on 6 L nasal cannula. I will also transfer the patient to the intensive care unit for closer monitoring. 40 minutes of critical care time spent on patient care. Discharge Planning Transfer to the intensive care unit. Problem Qualifiers (1) COPD (chronic obstructive pulmonary disease): Qualified Code: J42 - Chronic bronchitis, unspecified chronic bronchitis type (2) HTN (hypertension): Qualified Code: I10 - Essential hypertension (3) Atrial fibrillation: Qualified Code: I48.2 - Chronic atrial fibrillation Yfn Hernandez MD Oct 20, 2016 10:24
[2016-10-20] MEDS ORDERED: methylPREDNISolone SOD SUCC 125 MG/2 ML VIAL IV PUSH ONE (10:30)
--- NOTE | 2016-10-20 11:19 | MB ---
cc: MEAGAN CARVER MD DATE OF CONSULTATION 10/19/[address] Coto REASON FOR CONSULTATION Evaluation for pleural effusion. HISTORY OF PRESENT ILLNESS Mr. Reid is an 81-year-old male with a history of COPD, atrial fibrillation, history of TIA. The patient was admitted in the hospital with pain in his leg and he was found to have discoloration, vascular insufficiency and he is being considered for amputation. The patient's daughter has made him DNR and does not want any extensive procedure done on him. He had a chest x-ray done which showed a possible left pleural effusion with atelectasis and possible infiltrate. His CBC showed a WBC count of 8.8, hemoglobin of 11., hematocrit 35.9, MCV 83.8, platelet count 214. Sodium 114, potassium 4.0, chloride 98, CO2 36, BUN 33, creatinine 1.42. PAST MEDICAL HISTORY Significant for a history of: 1. COPD 2. Atrial fibrillation 3. TIA 4. Nonsustained V-tach 5. Hypertension 6. Decreased ejection fraction 35-40%. MEDICATIONS He is currently takin. Vitamin K 2. Morphine sulfate 2 mg p.r.n. 3. Metoprolol 25 mg 4. He is on insulin. 5. Metoprolol 12.5 mg twice a day 6. Xanax 0.5 mg daily 7. Nifedipine 60 mg twice a day 8. Spiriva once a day 9. Pravastatin 20 mg a day 10. Levaquin 750 mg q48 hours ALLERGIES Allergic TO PENICILLIN. SOCIAL HISTORY He is . He has a history of smoking which he quit 20 years ago. No alcohol use. He worked for [employer]. FAMILY HISTORY He has two children. His has Alzheimer's. She is in the hospital. REVIEW OF SYSTEMS The patient has pain in the leg. Denies any fever or chills. Denies any malignancy. PHYSICAL EXAMINATION A well-built, well-nourished elderly bit somewhat poor historian. VITAL SIGNS: His blood pressure 107/60, heart rate 63, respirations 16, temperature 97.4. HEENT: Pupils are equal and reactive. Oral mucosa and nasal mucosa normal. NECK: No JVD. CHEST: He has moderately decreased breath on the left. CARDIOVASCULAR: S1 and S2 normal. ABDOMEN: Benign. EXTREMITIES: He has discoloration of the left leg. IMPRESSION 1. Large left pleural effusion. 2. Lung infiltrates 3. Atrial fibrillation 4. Diabetes mellitus 5. COPD 6. Vascular insufficiency PLAN His Coumadin is on hold. He has received vitamin K. We will check his PT/INR in the morning and I will ask interventional radiology for a left thoracentesis and send pleural fluid for protein, glucose, LDH, cell count and differential and cultures sensitivity and cytology. Continue present antibiotics. Vascular surgery is following. The patient is a DNR now. Thank you, Dr. Ctoo for this consultation. MD AGUILAR Patterson/IRAIDA /8:35 PM /11:02 AM
[2016-10-20] MEDS ORDERED: SODIUM CHLOR 0.9% 1000 ML INJ 1,000 ML IV SCH (12:30)
[2016-10-20] MEDS ORDERED: LIDOCAINE 1%/EPINEPHrine 1:100,000 SOLN 20 ML VIAL ONE (15:01)
--- NOTE | 2016-10-20 15:29 | PD.CARD.PN ---
Subjective Subjective Remarks The patient was transferred to ICU due to respiratory insufficiency and hypotension. The patient states he feels better compared to yesterday. His " head is more clear and he is breathing better", denies CP or palpitations. Now DNR. The patient is unclear whether he wants to proceed with AKA. Pending possible thoracentesis. Objective Vital Signs / I&O Vital Signs Date Time Temp Pulse Resp B/P Pulse Ox O2 Delivery O2 Flow Rate FiO2 10/20/16 11:30 98.0 53 19 104/53 91 10/20/16 10:55 88 Nasal Cannula 6.00 10/20/16 10:17 Nasal Cannula 4.00 10/20/16 08:03 88 Nasal Cannula 6.00 10/20/16 08:00 98.0 64 18 99/60 92 10/20/16 03:20 97.8 59 16 99/57 96 10/19/16 23:58 99.0 62 16 105/59 95 10/19/16 20:58 98.4 62 20 94/53 98 10/19/16 20:00 Nasal Cannula 6.00 10/19/16 19:50 95 Nasal Cannula 6.00 10/19/16 16:00 97.4 63 16 107/60 95 I/O 10/19/16 10/19/16 10/19/16 10/20/16 10/20/16 10/20/16 07:00 15:00 23:00 07:00 15:00 23:00 Intake Total 750 ml 360 ml 1072 ml 240 ml Output Total 550 ml 0 ml Balance 750 ml 360 ml 522 ml 240 ml Intake Oral 750 ml 360 ml 200 ml 240 ml IV Total 872 ml Output Urine Total 550 ml 0 ml # Voids 1 # Bowel Movements 0 0 0 Physical Exam GENERAL: Elderly male, no distress, on O2 SKIN: Warm and dry. HEAD: Normocephalic. EYES: No scleral icterus. No injection or drainage. NECK: Supple, trachea midline. CARDIOVASCULAR: Bradycardia, regular rhythm RESPIRATORY: Deminished breath sounds, No accessory muscle use. Nasal cannula GASTROINTESTINAL: Abdomen soft, non-tender, nondistended. MUSCULOSKELETAL: Ischemic left lower leg BACK: Nontender without obvious deformity. Laboratory Laboratory Tests Test 10/19/16 10/20/16 20:37 06:14 White Blood Count 10.3 TH/MM3 12.5 TH/MM3 Red Blood Count 4.04 MIL/MM3 3.89 MIL/MM3 Hemoglobin 11.1 GM/DL 10.4 GM/DL Hematocrit 34.0 % 32.8 % Mean Corpuscular Volume 84.2 FL 84.3 FL Mean Corpuscular Hemoglobin 27.4 PG 26.6 PG Mean Corpuscular Hemoglobin 32.6 % 31.6 % Concent Red Cell Distribution Width 15.8 % 15.5 % Platelet Count 207 TH/MM3 195 TH/MM3 Mean Platelet Volume 9.2 FL 9.4 FL Neutrophils (%) (Auto) 86.2 % Lymphocytes (%) (Auto) 6.0 % Monocytes (%) (Auto) 6.5 % Eosinophils (%) (Auto) 0.7 % Basophils (%) (Auto) 0.6 % Neutrophils # (Auto) 8.9 TH/MM3 Lymphocytes # (Auto) 0.6 TH/MM3 Monocytes # (Auto) 0.7 TH/MM3 Eosinophils # (Auto) 0.1 TH/MM3 Basophils # (Auto) 0.1 TH/MM3 CBC Comment DIFF FINAL Differential Comment Sodium Level 136 MEQ/L 136 MEQ/L Potassium Level 4.9 MEQ/L 5.0 MEQ/L Chloride Level 94 MEQ/L 95 MEQ/L Carbon Dioxide Level 40.4 MEQ/L 35.5 MEQ/L Anion Gap 2 MEQ/L 6 MEQ/L Blood Urea Nitrogen 42 MG/DL 46 MG/DL Creatinine 2.43 MG/DL 2.91 MG/DL Estimat Glomerular Filtration 26 ML/MIN 21 ML/MIN Rate Random Glucose 124 MG/DL 102 MG/DL Calcium Level 8.5 MG/DL 8.5 MG/DL Prothrombin Time 18.4 SEC Prothromb Time International 1.6 RATIO Ratio Serum Osmolality 294 MOSM/KG Phosphorus Level 4.0 MG/DL Magnesium Level 2.3 MG/DL Assessment and Plan Assessment and Plan ASSESSMENT 1. PVD, Ischemic LLE with gangrenous 2nd, 3rd toes. AKA recommended 2. SOB, large pleural effusion 3. Acute Renal Failure 4. Asymptomatic Non-sustained V-tach, EF 35-40% 5. Atrial Fibrillation on Coumadin prior to admission. Coumadin on hold 6. Mitral Regurgitation 7. Tricuspid Regurgitation 8. HTN 9. DNR PLAN: Pending possible thoracentesis. Coumadin on hold. Continue to hold antihypertensive therapy due to low BP Patient has history of NSVT. The patient is not sure he wants to proceed with AKA Assessment and plan discussed with Dalila Chou Oct 20, 2016 15:29
--- NOTE | 2016-10-20 17:41 | MB ---
cc: ABBY RODRIGUEZ MD DATE OF CONSULTATION 10/20/16 REASON FOR CONSULTATION Elevated BUN and creatinine for evaluation. HISTORY OF PRESENT ILLNESS This is an 81-year-old male with past medical history of chronic kidney disease, peripheral vascular disease, chronic obstructive pulmonary disease, atrial fibrillation on Coumadin, history of TIA who came with left leg and foot ischemia. I was called to see the patient because of elevated BUN and creatinine. The patient denies any known history of renal disease, but looking back it seems like his creatinine was 1.2-1.3 last year and he came here with a creatinine of 3.1 which improved to 1.4-1.5 which is probably his baseline and for the last two days now has been going up to 2.4 and 2.9. The patient was diagnosed with left leg ischemia and he has been seen by vascular surgery and underwent an angiogram with ultrasound guidance and this was done on October 17. The patient has been on Bumex, but it was stopped yesterday. He was also diagnosed with pleural effusion and has history of COPD. Pulmonary is following. He had also a CTA done on October 18. The creatinine had gone up to 2.4 yesterday and today it is 2.9. The patient also has hypotension and blood pressure systolic in the 90s. He is going to be transferred to the intensive care unit. He denies any nausea or vomiting. He has mild shortness of breath. There is no chest pain. No abdominal pain. No history of diarrhea. PAST MEDICAL HISTORY 1. Chronic obstructive pulmonary disease, 2. Atrial fibrillation, 3. Peripheral vascular disease, 4. Transient ischemic attack. 5. Chronic kidney disease. PAST SURGICAL HISTORY Angiogram done. REVIEW OF SYSTEMS The patient has generalized weakness, feeling tired. There is no history of nausea or vomiting. No abdominal pain. No diarrhea. No shortness of breath, chest pain, no palpitations. SOCIAL HISTORY He has a past history of smoking, stopped 20 years ago. There is no history of heavy alcoholism. FAMILY HISTORY Noncontributory. ALLERGIES PENICILLIN MEDICATIONS Currently 1. Xanax 0.5 mg once a day. 2. Pravachol 20 mg daily. 3. Levofloxacin 750 mg q.48 h. 4. Narcan 0.4 mg. 5. Albuterol nebulizer. 6. Morphine as needed PHYSICAL EXAMINATION GENERAL: On examination the patient is awake, alert. He is not in acute distress. VITAL SIGNS: Last blood pressure 99/60, temperature is 98, oxygen saturation on 6 liters is 88%. HEENT Pupils equally reactive to light. Nonicteric. Conjunctivae, conjunctivae pale. NECK: Supple. JVD is not elevated. LUNGS: The patient has bilateral good air entry with few basilar rales. HEART: S1, S2 regular rhythm. ABDOMEN: Soft lax. There is no tenderness. EXTREMITIES: He has mild edema in the right. The left leg is ecchymotic with discoloration from the lower half of the leg all the way to the foot, although no open wound or discharge has been seen. LABORATORY DATA WBC count is 12.5, hemoglobin of 10.4, platelet count 195, sodium 136. Potassium 5.0, chloride 95, bicarb 35.5, BUN 46, creatinine 2.9. Calcium 8.5, phosphorus 4.0. Magnesium 2.3, AST, ALT normal, total protein is 5.6, albumin of 2.4, INR is 1.6. Urinalysis showing that there is no proteinuria, rare bacteria. IMAGING STUDIES The patient had chest x-ray done which shows large left effusion with extensive consolidation, possibly collapse, moderate right pleural effusion. Aortogram was done on October 18 and it shows that he has aortoiliac occlusion, left common femoral is occluded. Profunda branches reconstitute. Left superficial femoral artery is proximally occluded. ASSESSMENT/PLAN 1. Chronic kidney disease with acute kidney injury 2. Peripheral vascular disease. 3. Hypotension, rule-out sepsis 4. Pleural effusion and COPD. 5. Atrial fibrillation The patient has underlying chronic kidney disease and the baseline creatinine is probably close to 1.4-1.5. He had acute kidney injury when he came in and it is improved and now developed again acute kidney injury. The chronic kidney disease is most likely because of the hypotensive or renovascular disease and has now developed acute kidney injury probably because of either hypotension with ATN or possibility of contrast nephropathy. The patient has been nonoliguric. I will get the Palumbo catheter for better monitoring of the urine output and get the urine sodium and osmolality along with the eosinophils and put him on gentle hydration. The patient is going to be moved to intensive care unit for better monitoring. Follow the urine output and the BUN and creatinine. Avoid any nephrotoxins. Thank you for the consultation. The patient will be followed over the weekend by Dr. Phillip Alberto. MD SANTOS Muñoz/ /12:26 PM /5:18 PM
[2016-10-20] MEDS ORDERED: SODIUM CHLORID 0.9% 500 ML INJ 500 ML IV ONE (17:45)
[2016-10-20] MEDS ORDERED: ATROPINE SULFATE 1 MG/ML VIAL IV PUSH PRN (18:00)
--- NOTE | 2016-10-20 18:57 | HHI.PR ---
Subjective Remarks 81 YOWM with COPD,Pl effusion, severe PAD Had left TC, 2200 cc fluid removed feels better Had Low BP Denies sob Objective Vital Signs Vital Signs Date Time Temp Pulse Resp B/P Pulse Ox O2 Delivery O2 Flow Rate FiO2 10/20/16 18:00 60 10/20/16 16:00 98.5 44 21 80/46 98 10/20/16 16:00 52 10/20/16 14:00 56 10/20/16 12:30 55 10/20/16 12:30 98.6 54 26 106/80 90 10/20/16 11:30 98.0 53 19 104/53 91 10/20/16 10:55 88 Nasal Cannula 6.00 10/20/16 10:17 Nasal Cannula 4.00 10/20/16 08:03 88 Nasal Cannula 6.00 10/20/16 08:00 98.0 64 18 99/60 92 10/20/16 03:20 97.8 59 16 99/57 96 10/19/16 23:58 99.0 62 16 105/59 95 10/19/16 20:58 98.4 62 20 94/53 98 10/19/16 20:00 Nasal Cannula 6.00 10/19/16 19:50 95 Nasal Cannula 6.00 I/O 10/19/16 10/19/16 10/19/16 10/20/16 10/20/16 10/20/16 07:00 15:00 23:00 07:00 15:00 23:00 Intake Total 750 ml 360 ml 1072 ml 240 ml Output Total 550 ml 0 ml 400 ml Balance 750 ml 360 ml 522 ml 240 ml -400 ml Intake Oral 750 ml 360 ml 200 ml 240 ml IV Total 872 ml Output Urine Total 550 ml 0 ml 400 ml # Voids 1 # Bowel Movements 0 0 0 Result Diagram: 10/20/1614 10/20/16613 Objective Remarks GENERAL: WBWN WM, mild sob SKIN: Warm and dry. HEAD: Normocephalic. EYES: No scleral icterus. No injection or drainage. NECK: Supple, trachea midline. No JVD or lymphadenopathy. CARDIOVASCULAR: Regular rate and rhythm without murmurs, gallops, or rubs. RESPIRATORY: Breath sounds equal bilaterally. No accessory muscle use. GASTROINTESTINAL: Abdomen soft, non-tender, nondistended. MUSCULOSKELETAL: No cyanosis, or edema. BACK: Nontender without obvious deformity. No CVA tenderness. A/P Assessment and Plan Left pleural effusion, s/p TC Severe PAD COPD Lung infilt AF DM PLAN: Cont Abx Fluid bolus If BP not improved, will give IV Albumin Cont Abx Supplement 02 Being evaluated for amputation. Nathaniel Bear MD Oct 20, 2016 18:57
[2016-10-20] MEDS: LEVOFLOXACIN 750 MG PREMIX INJ 150 ML IV SCH (21:50)
--- NOTE | 2016-10-20 21:50 | RADRPT ---
EXAM DATE/TIME: 10/20/2016 16:52 [facility] COMPARISON: No previous studies available for comparison. INDICATIONS : Increased BUN and Creatinine. MEDICAL HISTORY : Chronic obstructive pulmonary disease. Congestive heart failure. Hypercholesterolemia. Transient isch emic attack. Anticoagulant therapy. Afib. Hypertension. Emphysema. Asthma. SURGICAL HISTORY : Colonoscopy. ENCOUNTER: Initial ACUITY: 1 day PAIN SCORE: 2/10 LOCATION: Bilateral flank MEASUREMENTS: RIGHT KIDNEY: 9.7 x 4.3 x 4.3 cm LEFT KIDNEY: 9.5 x 4.0 x 4.3 cm FINDINGS: RIGHT KIDNEY: There is slight increase in echogenicity of the renal cortex. No hydronephrosis, stone, or mass. LEFT KIDNEY: There is slight increase in echogenicity of the renal cortex. No hydronephrosis, stone, or mass. BLADDER: There is a Palumbo catheter decompressing the bladder. There is a right pleural effusion. CONCLUSION: 1. Slight increase in echogenicity of the kidneys which can suggest some degree of medical renal dise ase. 2. Right pleural effusion. Willis Garcai MD on October 20, 2016 at 21:46 Board Certified Radiologist. This report was verified electronically.
[2016-10-21] VITALS (18 sets, daily range): BP systolic 87–101; BP diastolic 53–56; PULSE 54–69; RESP 19–22; TEMP 98–98.6; O2SAT 87–100
[2016-10-21] MEDS: MORPHINE SULFATE 4 MG/ML INJ IV PRN ×2 (01:09→05:16)
--- NOTE | 2016-10-21 02:30 | RADRPT ---
EXAM DATE/TIME: 10/21/2016 01:16 [facility] COMPARISON: CT GUIDED THORACENTESIS LEFT, October 20, 2016, 16:00. CHEST SINGLE AP, October 19, 2016, 16:43. INDICATIONS : Post thoracentesis left side. MEDICAL HISTORY : Chronic obstructive pulmonary disease. Congestive heart failure. Hypercholesterolemia. Hypertensi on SURGICAL HISTORY : Thoracentesis ENCOUNTER: Subsequent ACUITY: 2 days PAIN SCORE: Non-responsive. LOCATION: Left chest FINDINGS: The heart size is enlarged. There is increased density at the mid and lower left lung with silhouetti ng the left hemidiaphragm. When compared to the prior exam, there is clearly improved aeration in the left lung following left thoracentesis. A pneumothorax is not seen. There is prominence to the inter stitial markings throughout. There some mild increased density at the right base. CONCLUSION: Improved aeration in the left lung following thoracentesis. There continues to be suspected CHF. Willis Garcia MD on October 21, 2016 at 2:26 Board Certified Radiologist. This report was verified electronically.
[2016-10-21 05:12] LABS: INTERNATIONAL NORMALIZED RATIO 1.3 RATIO
[2016-10-21 05:13] LABS: AUTOMATED NEUTROPHIL # 8.8 TH/MM3 (1.8-7.7); BASOPHIL % 0.4 % (0.0-2.0); EOSINOPHIL % 0.1 % (0.0-4.0); HEMATOCRIT 32.9 % (39.0-51.0); HEMO FLAGS DIFF FINAL; LYMPH % 2.9 % (9.0-44.0); LYMPHOCYTE # 0.3 TH/MM3 (1.0-4.8); MEAN CELL VOLUME 83.5 FL (80.0-100.0); MEAN CORPUSCULAR HEMOGLOBIN 26.4 PG (27.0-34.0); MEAN CORPUSCULAR HGB CONC 31.7 % (32.0-36.0); MONO % 2.2 % (0.0-8.0); NEUT % 94.4 % (16.0-70.0); PLATELET COUNT 161 TH/MM3 (150-450); RED BLOOD COUNT 3.94 MIL/MM3 (4.50-5.90); RED CELL DISTRIBUTION WIDTH 15.6 % (11.6-17.2); WHITE BLOOD COUNT 9.3 TH/MM3 (4.0-11.0)
[2016-10-21 05:54] LABS: ALKALINE PHOSPHATASE 58 U/L (45-117); ALT (GPT) 15 U/L (12-78); ANION GAP 6 MEQ/L (5-15); AST (GOT) 33 U/L (15-37); BICARBONATE 34.2 MEQ/L (21.0-32.0); BLOOD UREA NITROGEN 58 MG/DL (7-18); CHLORIDE 95 MEQ/L (98-107); GLOMERULAR FILTRATION RATE 15 ML/MIN (>89); MAGNESIUM 2.3 MG/DL (1.5-2.5); POTASSIUM 5.6 MEQ/L (3.5-5.1); SODIUM (NA) 135 MEQ/L (136-145); TOTAL BILIRUBIN ADULT 0.4 MG/DL (0.2-1.0)
[2016-10-21] MEDS ORDERED: DEXTROSE 50% IN WATER 50 ML SYRINGE ONE (08:27)
[2016-10-21] MEDS ORDERED: SODIUM POLYSTYRENE SULFONATE SUSP 15 GM/60 ML CUP PO ONE (09:00)
[2016-10-21] MEDS: PRAVASTATIN SOD 20 MG TAB PO SCH (09:00)
[2016-10-21] MEDS ORDERED: ALBUMIN HUMAN 25% 25 GM/100 ML BAGP IV ONE (09:00)
[2016-10-21] MEDS: SODIUM CHLORIDE 0.9% FLUSH 10 ML FLUSH IV FLUSH SCH ×2 (09:00→21:00)
[2016-10-21] MEDS: ALPRAZolam 0.5 MG TAB PO SCH (09:00)
[2016-10-21] MEDS: TIOTROPIUM BROMIDE 18 MCG INH INH SCH (09:00)
[2016-10-21] MEDS ORDERED: INSULIN HUMAN REGULAR 1,000 UNITS/10 ML VIAL IV PUSH ONE (09:00)
[2016-10-21] MEDS ORDERED: DEXTROSE 50% IN WATER 50 ML SYRINGE IV ONE (09:00)
[2016-10-21 10:41] LABS: BICARBONATE 35.1 MEQ/L (21.0-32.0); POTASSIUM 5.4 MEQ/L (3.5-5.1)
[2016-10-21 11:01] LABS: BLOOD GAS BASE EXCESS 4.7 mmol/L (-2-2); BLOOD GAS CARBOXYHEMOGLOBIN 1.5 % (0-4); BLOOD GAS HCO3 32 mmol/L (22-26); BLOOD GAS METHEMOGLOBIN 0.9 % (0-2); BLOOD GAS O2 HGB SATURATION 84 % (90-100); BLOOD GAS OXYGEN CONTENT 11.6 Vol % (12.0-20.0); BLOOD GAS PCO2 78 mmHg (38-42); BLOOD GAS PO2 58 mmHg (61-120); BLOOD GAS TOTAL HGB 9.7 G/DL (12.0-16.0); TEMP CORR TO 98.6
[2016-10-21 11:02] LABS: CRITICAL VALUE YES; DRAW SITE RT RADIAL; LITER FLOW 3 L/M; NUMBER OF ARTERIAL PUNCTURES 1; OXYGEN DEVICE NASAL CANNULA; STAT YES; ULNAR PULSE PRESENT
[2016-10-21] MEDS ORDERED: RESP: ALBUTEROL 2.5 MG/IPRATROPIUM 0.5 MG NEB (PRN) NEB (11:30)
[2016-10-21] MEDS ORDERED: methylPREDNISolone SOD SUCC 40 MG/1 ML VIAL IV PUSH SCH (11:30)
[2016-10-21] MEDS ORDERED: DEXTROSE 50% IN WATER 50 ML VIAL(D50) IV PUSH ONE (11:30)
[2016-10-21] MEDS ORDERED: NALOXONE HCL 0.4 MG/ML AMP IV PUSH ONE (11:30)
--- NOTE | 2016-10-21 11:37 | HHI.PR ---
Subjective Remarks Patient appears lethargic and drowsy given morphine 12mg total since last night. ABG this morning showed acute hypercapnic resp failure with PH: 7.23/78/ 58 on 3L oxygen. Patient was subsequently placed on BIPAP 12 with FIO2 60%. Objective Vital Signs Vital Signs Date Time Temp Pulse Resp B/P Pulse Ox O2 Delivery O2 Flow Rate FiO2 10/21/16 08:00 Nasal Cannula 5.00 10/21/16 07:10 92 Nasal Cannula 5.00 10/21/16 06:00 59 10/21/16 04:00 60 10/21/16 04:00 98.0 60 22 87/53 88 10/21/16 02:00 58 10/21/16 00:00 98.6 54 20 98/56 92 10/21/16 00:00 54 10/20/16 22:17 74 Nasal Cannula 21 10/20/16 22:00 53 10/20/16 20:00 51 20 95/52 83 10/20/16 20:00 51 10/20/16 19:00 Nasal Cannula 6.00 10/20/16 18:00 60 10/20/16 16:00 98.5 44 21 80/46 98 10/20/16 16:00 52 10/20/16 14:00 56 10/20/16 12:30 55 10/20/16 12:30 98.6 54 26 106/80 90 10/20/16 11:30 98.0 53 19 104/53 91 I/O 10/20/16 10/20/16 10/20/16 10/21/16 10/21/16 10/21/16 07:00 15:00 23:00 07:00 15:00 23:00 Intake Total 240 ml 684 ml 338 ml Output Total 0 ml 400 ml 380 ml Balance 240 ml -400 ml 684 ml -42 ml Intake Oral 240 ml IV Total 684 ml 338 ml Output Urine Total 0 ml 400 ml 380 ml # Bowel Movements 0 Result Diagram: 10/21/16 0349 10/21/16 0955 Other Results Laboratory Tests Test 10/21/16 10/21/16 10/21/16 10/21/16 03:49 04:24 09:55 10:55 White Blood Count 9.3 TH/MM3 Red Blood Count 3.94 MIL/MM3 Hemoglobin 10.4 GM/DL Hematocrit 32.9 % Mean Corpuscular Volume 83.5 FL Mean Corpuscular Hemoglobin 26.4 PG Mean Corpuscular Hemoglobin 31.7 % Concent Red Cell Distribution Width 15.6 % Platelet Count 161 TH/MM3 Mean Platelet Volume 9.3 FL Neutrophils (%) (Auto) 94.4 % Lymphocytes (%) (Auto) 2.9 % Monocytes (%) (Auto) 2.2 % Eosinophils (%) (Auto) 0.1 % Basophils (%) (Auto) 0.4 % Neutrophils # (Auto) 8.8 TH/MM3 Lymphocytes # (Auto) 0.3 TH/MM3 Monocytes # (Auto) 0.2 TH/MM3 Eosinophils # (Auto) 0.0 TH/MM3 Basophils # (Auto) 0.0 TH/MM3 CBC Comment DIFF FINAL Differential Comment Prothrombin Time 14.0 SEC Prothromb Time International 1.3 RATIO Ratio Sodium Level 135 MEQ/L 135 MEQ/L Potassium Level 5.6 MEQ/L 5.4 MEQ/L Chloride Level 95 MEQ/L 94 MEQ/L Carbon Dioxide Level 34.2 MEQ/L 35.1 MEQ/L Anion Gap 6 MEQ/L 6 MEQ/L Blood Urea Nitrogen 58 MG/DL 61 MG/DL Creatinine 3.92 MG/DL 4.16 MG/DL Estimat Glomerular Filtration 15 ML/MIN 14 ML/MIN Rate Random Glucose 107 MG/DL 50 MG/DL Calcium Level 8.2 MG/DL 8.2 MG/DL Phosphorus Level 5.5 MG/DL Magnesium Level 2.3 MG/DL Total Bilirubin 0.4 MG/DL Aspartate Amino Transf 33 U/L (AST/SGOT) Alanine Aminotransferase 15 U/L (ALT/SGPT) Alkaline Phosphatase 58 U/L Total Protein 5.3 GM/DL Albumin 2.2 GM/DL Urine Eosinophils NONE SEEN /HPF Urine Random Sodium 28 MEQ/L Blood Gas Puncture Site RT RADIAL Blood Gas Patient Temperature 98.6 Blood Gas HCO3 32 mmol/L Blood Gas Base Excess 4.7 mmol/L Blood Gas Oxygen Saturation 84 % Arterial Blood pH 7.23 Arterial Blood Partial 78 mmHg Pressure CO2 Arterial Blood Partial 58 mmHg Pressure O2 Arterial Blood Oxygen Content 11.6 Vol % Arterial Blood 1.5 % Carboxyhemoglobin Arterial Blood Methemoglobin 0.9 % Blood Gas Hemoglobin 9.7 G/DL Oxygen Delivery Device NASAL CANNULA Blood Gas Liter Flow 3 L/M Objective Remarks GENERAL: Patient is 81yo lethargic and drowsy now on BIPAP SKIN: Warm and dry. HEAD: Normocephalic. EYES: No scleral icterus. No injection or drainage. NECK: Supple, trachea midline. No JVD or lymphadenopathy. CARDIOVASCULAR: Regular rate and rhythm without murmurs, gallops, or rubs. RESPIRATORY: Breath sounds equal bilaterally. No accessory muscle use. GASTROINTESTINAL: Abdomen soft, non-tender, nondistended. MUSCULOSKELETAL: No cyanosis, ischemic LLE. Neuro: Lethargic. A/P Assessment and Plan 1)Acute hypercapnic resp acidosis 2)Left pleural effusion, s/p Thoracentesis with removal 2200ml 3)COPD 4)CHF/Cardiomyopathy 5)PVD with ischemic LLE 6)ARF 7)Encephalopathy-multifactorial PLAN: Continue with oxygen keep sat >92% Bronchodilators, place on solumederol 50mg IV Q8, on Spiriva Place on BIPAP and repeat ABG patient is no code DNR. Patient was given Narcan 0.4mg X1 Echo showed EF 35-50% Check CXR Monitor renal function, I/O's, avoid nephrotoxins. Renal is following. Patient might need HD. Continue with abx ( Levaquin)monitor for signs of infections ( Fever, WBC). GI/DVT prophylaxis= per primary team Discussed with Bhanu Nava MD Oct 21, 2016 11:37
--- NOTE | 2016-10-21 11:49 | PD.VS.PN ---
Subjective Subjective/Hospital Course Patient somnolent. Appears to be oversedated with 12mg morphine (pain) IV overnight. Now on Bipap Objective Vitals/I&O Date Time Temp Pulse Resp B/P Pulse Ox O2 Delivery O2 Flow Rate FiO2 10/21/16 11:26 95 60 10/21/16 08:00 Nasal Cannula 5.00 10/21/16 07:10 92 Nasal Cannula 5.00 10/21/16 06:00 59 10/21/16 04:00 60 10/21/16 04:00 98.0 60 22 87/53 88 10/21/16 02:00 58 10/21/16 00:00 98.6 54 20 98/56 92 10/21/16 00:00 54 10/20/16 22:17 74 Nasal Cannula 21 10/20/16 22:00 53 10/20/16 20:00 51 20 95/52 83 10/20/16 20:00 51 10/20/16 19:00 Nasal Cannula 6.00 10/20/16 18:00 60 10/20/16 16:00 98.5 44 21 80/46 98 10/20/16 16:00 52 10/20/16 14:00 56 10/20/16 12:30 55 10/20/16 12:30 98.6 54 26 106/80 90 10/21/16 10/21/16 10/21/16 07:00 15:00 23:00 Intake Total 338 ml Output Total 380 ml Balance -42 ml Physical Exam left foot with dry ganrenous changes with bluish discoloration and coolness. Laboratory Laboratory Tests Test 10/21/16 10/21/16 10/21/16 10/21/16 03:49 04:24 09:55 10:55 White Blood Count 9.3 Red Blood Count 3.94 Hemoglobin 10.4 Hematocrit 32.9 Mean Corpuscular Volume 83.5 Mean Corpuscular Hemoglobin 26.4 Mean Corpuscular Hemoglobin 31.7 Concent Red Cell Distribution Width 15.6 Platelet Count 161 Mean Platelet Volume 9.3 Neutrophils (%) (Auto) 94.4 Lymphocytes (%) (Auto) 2.9 Monocytes (%) (Auto) 2.2 Eosinophils (%) (Auto) 0.1 Basophils (%) (Auto) 0.4 Neutrophils # (Auto) 8.8 Lymphocytes # (Auto) 0.3 Monocytes # (Auto) 0.2 Eosinophils # (Auto) 0.0 Basophils # (Auto) 0.0 CBC Comment DIFF FINAL Differential Comment Prothrombin Time 14.0 Prothromb Time International 1.3 Ratio Sodium Level 135 135 Potassium Level 5.6 5.4 Chloride Level 95 94 Carbon Dioxide Level 34.2 35.1 Anion Gap 6 6 Blood Urea Nitrogen 58 61 Creatinine 3.92 4.16 Estimat Glomerular Filtration 15 14 Rate Random Glucose 107 50 Calcium Level 8.2 8.2 Phosphorus Level 5.5 Magnesium Level 2.3 Total Bilirubin 0.4 Aspartate Amino Transf 33 (AST/SGOT) Alanine Aminotransferase 15 (ALT/SGPT) Alkaline Phosphatase 58 Total Protein 5.3 Albumin 2.2 Urine Eosinophils NONE SEEN Urine Random Sodium 28 Blood Gas Puncture Site RT RADIAL Blood Gas Patient Temperature 98.6 Blood Gas HCO3 32 Blood Gas Base Excess 4.7 Blood Gas Oxygen Saturation 84 Arterial Blood pH 7.23 Arterial Blood Partial 78 Pressure CO2 Arterial Blood Partial 58 Pressure O2 Arterial Blood Oxygen Content 11.6 Arterial Blood 1.5 Carboxyhemoglobin Arterial Blood Methemoglobin 0.9 Blood Gas Hemoglobin 9.7 Oxygen Delivery Device NASAL CANNULA Blood Gas Liter Flow 3 Imaging Last 48 hours Impressions Chest X-Ray 10/20/161999 Signed Impressions: Service Date/Time: Friday, October 21, 2016 01:16 - CONCLUSION: Improved aeration in the left lung following thoracentesis. There continues to be suspected CHF. Willis Garcia MD Renal Ultrasound 10/20/16 0000 Signed Impressions: Service Date/Time: Thursday, October 20, 2016 16:52 - CONCLUSION: 1. Slight increase in echogenicity of the kidneys which can suggest some degree of medical renal disease. 2. Right pleural effusion. Willis Garcia MD Assessment and Plan Plan Mr. 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 Plan for possible amputation (left aka) next week. Neurologically decompensated overnight with poor oxygenation. Patient in respiratory distress. Appears to have treated with excess narcotics. Responded to narcan as now starting to follow commands. ABG pending. Patient also hypoglycemic which was treated as well. Increasing creatinine and potassium with decrease urine output. Dr. Agosto and Dr. Alberto at the bedside and having discussion with ICU for possible transfer. Bryan Null DO, FACS mental hygienist [facility] - Heart and Vascular Surgery at [facility] Bryan Null DO Oct 21, 2016 11:49
[2016-10-21] MEDS ORDERED: SODIUM CHLOR 0.9% 1000 ML INJ 1,000 ML IV PRN ×3 (11:55)
[2016-10-21] MEDS ORDERED: HEPARIN SODIUM - IV 10,000 UNITS/10 ML VIAL PRN (12:00)
[2016-10-21] MEDS ORDERED: SODIUM CHLORIDE 0.9% FLUSH 10 ML FLUSH IV FLUSH PRN (12:00)
[2016-10-21] MEDS ORDERED: ONDANSETRON HCL 4 MG/2 ML VIAL IV PRN (12:00)
[2016-10-21] MEDS ORDERED: ACETAMINOPHEN 325 MG TAB PO PRN (12:00)
[2016-10-21] MEDS ORDERED: methylPREDNISolone SOD SUCC 125 MG/2 ML VIAL IV PUSH ONE (12:00)
[2016-10-21] MEDS ORDERED: HEPARIN SODIUM - IV 10,000 UNITS/10 ML VIAL IVF PRN (12:00)
[2016-10-21] MEDS ORDERED: diphenhydrAMINE HCL 25 MG CAP PO PRN (12:00)
[2016-10-21] MEDS ORDERED: ALBUMIN HUMAN 25% 25 GM/100 ML BAGP IV PRN (12:00)
[2016-10-21] MEDS ORDERED: MANNITOL 12.5 GM/50 ML VIAL IV PRN (12:00)
[2016-10-21] MEDS ORDERED: GELATIN 12 MM/7 MM FOAM TOP PRN (12:00)
[2016-10-21] MEDS ORDERED: cloNIDine HCL 0.1 MG TAB PO PRN (12:00)
[2016-10-21] MEDS ORDERED: NITROGLYCERIN 0.4 MG SL 25 TABS/BTL SL PRN (12:00)
--- NOTE | 2016-10-21 12:04 | RADRPT ---
EXAM DATE/TIME: 10/21/2016 11:19 [facility] COMPARISON: CHEST SINGLE AP, October 21, 2016, 1:16. INDICATIONS : Respiratory failure. MEDICAL HISTORY : Chronic obstructive pulmonary disease. Congestive heart failure. Hypercholesterolemia. Hypertension. SURGICAL HISTORY : Thoracocentesis. ENCOUNTER: Subsequent ACUITY: 1 week PAIN SCORE: Non-responsive. LOCATION: Chest. FINDINGS: The single portable semiupright view of the chest is performed. Stable cardiomegaly and opacification of the left lung base. There is improved aeration of the right hemithorax. Osseous structures remain unremarkable. CONCLUSION: Stable cardiomegaly with left basilar atelectasis. Improved aeration of the right hemithorax. Magalie Colón MD on October 21, 2016 at 12:00 Board Certified Radiologist. This report was verified electronically.
--- NOTE | 2016-10-21 12:08 | HHI.PR ---
Subjective Remarks called by RN - patient hypotensive and lethargic unable to wake up as per records got 12 mg IV morphine overnight potassium elevated at 5.6 Objective Vitals Vital Signs Date Time Temp Pulse Resp B/P Pulse Ox O2 Delivery O2 Flow Rate FiO2 10/21/16 11:26 95 60 10/21/16 08:00 Nasal Cannula 5.00 10/21/16 07:10 92 Nasal Cannula 5.00 10/21/16 06:00 59 10/21/16 04:00 60 10/21/16 04:00 98.0 60 22 87/53 88 10/21/16 02:00 58 10/21/16 00:00 98.6 54 20 98/56 92 10/21/16 00:00 54 10/20/16 22:17 74 Nasal Cannula 21 10/20/16 22:00 53 10/20/16 20:00 51 20 95/52 83 10/20/16 20:00 51 10/20/16 19:00 Nasal Cannula 6.00 10/20/16 18:00 60 10/20/16 16:00 98.5 44 21 80/46 98 10/20/16 16:00 52 10/20/16 14:00 56 10/20/16 12:30 55 10/20/16 12:30 98.6 54 26 106/80 90 I/O 10/20/16 10/20/16 10/20/16 10/21/16 10/21/16 10/21/16 07:00 15:00 23:00 07:00 15:00 23:00 Intake Total 240 ml 684 ml 338 ml Output Total 0 ml 400 ml 380 ml Balance 240 ml -400 ml 684 ml -42 ml Intake Oral 240 ml IV Total 684 ml 338 ml Output Urine Total 0 ml 400 ml 380 ml # Bowel Movements 0 Result Diagram: 10/21/16 0349 10/21/16 0955 Imaging Last Impressions Chest X-Ray 10/20/161999 Signed Impressions: Service Date/Time: Friday, October 21, 2016 01:16 - CONCLUSION: Improved aeration in the left lung following thoracentesis. There continues to be suspected CHF. Willis Garcia MD Renal Ultrasound 10/20/16 0000 Signed Impressions: Service Date/Time: Thursday, October 20, 2016 16:52 - CONCLUSION: 1. Slight increase in echogenicity of the kidneys which can suggest some degree of medical renal disease. 2. Right pleural effusion. Willis Garcia MD Head CT 10/18/16 0000 Signed Impressions: Service Date/Time: Tuesday, October 18, 2016 13:56 - CONCLUSION: 1. No acute intracranial abnormality is identified. Oh aFrfan MD Aorta w/Runoff CTA 10/18/16 0000 Signed Impressions: Service Date/Time: Tuesday, October 18, 2016 14:02 - CONCLUSION: Aortoiliac occlusion. The left common femoral artery is occluded. Profunda branches reconstitute. Left superficial femoral artery is proximally occluded and severely diseased following reconstitution. No healthy appearing potential target vessels above the calf on the left. Less severe runoff changes on the right as described. Severe visceral arterial disease Large pleural effusions. Sizable calcific thoracic disc herniation, incompletely seen Willis Chen MD Lower Extremity Ultrasound 10/13/16 0000 Signed Impressions: Service Date/Time: Thursday, October 13, 2016 08:32 - CONCLUSION: Negative for deep venous thrombosis. Milton Farfan MD FACR Objective Remarks GENERAL: This is a well-nourished, well-developed patient, in mild respiratory distress. CARDIOVASCULAR: Regular rate and regular rhythm without murmurs, gallops, or rubs. RESPIRATORY: Decreased breath sounds on left lung field. Right lung field shows expiratory wheezing. No crackles or rhonchi auscultated. GASTROINTESTINAL: Abdomen soft, non-tender, nondistended. Normal, active bowel sounds MUSCULOSKELETAL: Left leg shows necrotic second and third toes. The left foot has a purple and mottled discoloration. Pulses are not palpable in the left leg. The extremity is cold to touch. NEURO: lethargic. Does not follow commands. Procedures none Medications and IVs Current Medications Medications (Trade) Dose Ordered Sig/Jennifer Route Start Time Stop Time Status Last Admin (NS Flush) 2 ml UNSCH PRN IV FLUSH 10/12/16 21:45 (NS Flush) 2 ml BID IV FLUSH 10/13/16 09:00 10/20/16 21:00 (Narcan Inj) 0.4 mg UNSCH PRN IV 10/12/16 21:45 (Xanax) 0.5 mg DAILY PO 10/13/16 09:00 10/20/16 08:34 (Procardia Xl) 60 mg BID PO 10/13/16 09:00 Hold 10/20/16 08:34 (Spiriva Inh) 18 mcg DAILY INH 10/13/16 09:00 10/20/16 08:35 Pravastatin Sodium 20 mg 20 mg DAILY PO 10/13/16 09:00 10/20/16 08:34 (Levaquin 750 Mg Premix Inj) 150 ml @ 100 mls/hr Q48H IV 10/12/16 23:00 10/20/16 21:50 (Lopressor) 12.5 mg Q12HR PO 10/15/16 11:00 Hold 10/20/16 08:34 (Pill Splitter) 1 ea UNSCH PRN OTHER 10/15/16 10:15 10/16/16 09:21 (Morphine Inj) 2 mg Q4H PRN IV 10/17/16 08:00 10/20/16 01:48 Morphine Sulfate 4 mg 4 mg Q4H PRN IV 10/17/16 08:00 10/21/16 05:16 (NS 1000 ml Inj) 1,000 ml @ 42 mls/hr [id number] IV 10/20/16 12:30 (Atropine Inj) 0.5 mg Q5M PRN IV PUSH 10/20/16 18:00 (SoluMEDROL INJ) 125 mg ONCE ONCE IV PUSH 10/21/16 12:00 10/21/16 12:01 (SoluMEDROL INJ) 60 mg Q6HR IV PUSH 10/21/16 18:00 (Heparin Inj) 5,000 units Q8HR SQ 10/21/16 14:00 Urinary Catheter: Yes Assessment to: Continue Palumbo insert reason: Measure Accurate Output Vascular Central Line Catheter: No A/P Problem List: (1) Ischemia of left lower extremity ICD Code: I99.8 Status: Acute (2) MARLYN (acute kidney injury) ICD Code: N17.9 Status: Acute (3) Non-sustained ventricular tachycardia ICD Code: I47.2 Status: Acute (4) COPD (chronic obstructive pulmonary disease) ICD Code: J44.9 Status: Chronic (5) History of CVA (cerebrovascular accident) ICD Code: Z86.73 Status: Chronic (6) HTN (hypertension) ICD Code: I10 Status: Chronic (7) Atrial fibrillation ICD Code: I48.91 Status: Acute (8) Bilateral pleural effusion ICD Code: J90 Status: Acute (9) Acute hypoxemic respiratory failure ICD Code: J96.01 Status: Acute (10) Subtherapeutic international normalized ratio (INR) ICD Code: R79.1 Status: Acute (11) DNR (do not resuscitate) discussion ICD Code: Z71.89 Status: Acute (12) Hyperkalemia ICD Code: E87.5 Status: Acute Plan: Status post administration of 1 amp of D50 and 10 units of regular insulin. Repeat BMP shows downtrending potassium 5.6 to 5.4. The patient will be dialyzed. We'll consult critical care turbine assembler to place Vas-Cath. (13) Hypoglycemia ICD Code: E16.2 Status: Acute Plan: Blood sugar went down into the 50s after administration of insulin and have a nap of D50. We'll proceed to give 1 amp of D50. Monitor blood sugars. Assessment and Plan (1) Ischemia of left lower extremity Plan: Patient was admitted to the medical floor and restless surgery consulted. The patient underwent left lower extremity angiogram with findings described as severe inflow and outflow disease. Vascular surgery recommends CTA A/P 2 toes, very likely to meet major amputation. Consult for second opinion has been placed by vascular surgery. 10/19 the patient is status post CTA with runoff which showed aorto iliac occlusion. Left common femoral arteries occlude it. The left superficial femoral arteries proximally included and severely diseased following with constitution. No healthy-appearing potential target vessel above the calf on the left. Severe visceral arterial disease large pleural effusions. Vascular surgery recommends amputation. Second opinion consult was placed. (2) MARLYN (acute kidney injury) Plan: Likely prerenal azotemia, creatinine continues to trend down . Continue to monitor BUN/creatinine, strict I's and O's, avoid nephrotoxins. Patient status post angiogram that could result in further kidney injury. Continue to monitor BUN/creatinine. Continue IV fluids. 10/20 Now creatinine elevated up to 2.91 from 1.42 likely contrast induced nephropathy since patient had a CTA of the aorta with runoff on 10/18/16. I will consult nephrology. Urine output is marginal. Continue to hold IV fluids in view that patient is volume overloaded with large pleural effusion on the left hemithorax. 10/21 Patient's creatinine trending up and now at 4.16 and oliguria. Likely ATN at this point. Patient also with elevated k at 5.6 - D50 and Kayexalate ordered. Discussed the case with Dr. Alberto from nephrology who will proceed to dialyze the patient. (3) Non-sustained ventricular tachycardia Plan: Echocardiogram showed EF of 35%. The patient started on metoprolol and is being monitored on telemetry. Cardiology consultation appreciated. 10/20 patient is borderline hypotensive, I will hold beta shelly for now. Continue to monitor on telemetry. (4) COPD (chronic obstructive pulmonary disease) Plan: Patient is oxygen dependent. Continue Spiriva with neck treatments. 10/20 patient has expiratory wheezing in the right lung field. Likely mild COPD exacerbation versus bronchial hyperreactivity from fluid overload. I will give 1 dose of Solu-Medrol 125 mg IV once. Continue duo nebs as needed for signs of breath and wheezing. (5) History of CVA (cerebrovascular accident) Plan: Continue statin, patient previously on Coumadin on hold now for planned procedure. INR 2.3, continue to monitor PT/INR and start heparin drip once INR falls below 2. (6) HTN (hypertension) Plan: Continue Procardia and metoprolol. BP seems to be stable. Continue to monitor vital signs. 10/20 patient now borderline hypotensive. Hold Bacardi and metoprolol. 10/21 Patient's blood pressure transiently improved last night but in the 90's systolic overnight. 1 amp of 25% of albumin ordered. (7) Atrial fibrillation Plan: EKG reviewed by me showed atrial flutter with a ventricular rate of 62 bpm. Atrial fibrillation/atrial flutter is rate controlled, continue beta shelly which has been started by cardiology. Echocardiogram showed a systolic function moderately reduced with an EF of 35-40 %. Diffuse hypokinesis. Trace aortic regurgitation. Mild to moderate mitral valve regurgitation. Moderate tricuspid regurgitation. Cardiology consulted, appreciate recommendations. INR is therapeutic, I will give vitamin K to try to bring the INR down so that the patient could have drainage of the pleural effusion. Continue to monitor PT /INR daily. Will start bridge to heparin after I talk to IR regarding thoracentesis. 10/21 INR responded to vitamin K administration. INR subtherapeutic. (8) Bilateral pleural effusion Plan: Patient has a large left pleural effusion and a moderate right pleural effusion. As seen on CTA of the aorta with runoff. I will order a chest x-ray. Appreciate recommendations. Patient is status post drainage of left pleural effusion. Repeat chest x-ray after drainage showed improved variation in the left lung following thoracentesis. There is some pulmonary congestion. Chest x -ray reviewed personally by me. (9) Acute hypercarbic hypoxemic respiratory failure Plan: Due to large pleural effusions. Patient desated into the high 70s yesterday. Status post drainage of left pleural effusion. Patient only required 6 L of oxygen nasal cannula. 10/21 Patient was administered 12 mg of IV morphine overnight for pain and agitation. Patient today lethargic. ABG was obtained which showed a pH of 7.23 , PCO2 78.[address] the patient on BiPAP 04/19. Case discussed with Dr. Pereira who is covering for pulmonary. A repeat ABG will be done after 1 hour of the patient being on BiPAP. I will consult turbine assembler. 40 minutes of critical care time spent on patient care. Discharge Planning Called and discussed the case with the patient's daughter. She again repeats that the patient should be DO NOT RESUSCITATE/DO NOT INTUBATE. She however agrees with dialysis for now. Problem Qualifiers (1) COPD (chronic obstructive pulmonary disease): Qualified Code: J42 - Chronic bronchitis, unspecified chronic bronchitis type (2) HTN (hypertension): Qualified Code: I10 - Essential hypertension (3) Atrial fibrillation: Qualified Code: I48.2 - Chronic atrial fibrillation Yfn Hernandez MD Oct 21, 2016 12:08
--- NOTE | 2016-10-21 12:12 | HHI.NPPN ---
Subjective Additional Remarks Patient seen in ICU, on Bipap Lethargic after given morphine last night Objective Data Data 10/20/16 10/21/16 19:00 07:00 Intake Total 1022 ml Output Total 400 ml 380 ml Balance -400 ml 642 ml IV Total 1022 ml Output Urine Total 400 ml 380 ml Vital Signs Date Time Temp Pulse Resp B/P Pulse Ox O2 Delivery O2 Flow Rate FiO2 10/21/16 11:26 95 60 10/21/16 08:00 Nasal Cannula 5.00 10/21/16 07:10 92 Nasal Cannula 5.00 10/21/16 06:00 59 10/21/16 04:00 60 10/21/16 04:00 98.0 60 22 87/53 88 10/21/16 02:00 58 10/21/16 00:00 98.6 54 20 98/56 92 10/21/16 00:00 54 10/20/16 22:17 74 Nasal Cannula 21 10/20/16 22:00 53 10/20/16 20:00 51 20 95/52 83 10/20/16 20:00 51 10/20/16 19:00 Nasal Cannula 6.00 10/20/16 18:00 60 10/20/16 16:00 98.5 44 21 80/46 98 10/20/16 16:00 52 10/20/16 14:00 56 10/20/16 12:30 55 10/20/16 12:30 98.6 54 26 106/80 90 -: 10/21/16 0349 10/21/16 0955 Physical Exam General Appearance: Well Developed Appearance Remarks lethargic Throat Throat Exam: Oral Mucosa [place] & Moist Neck Neck Exam: Neck Supple Pulmonary Resp Exam: Diminished Breath Sounds Cardiology CV Exam: Regular, Normal Sinus Rhythm Gastrointestinal/Abdomen GI Exam: Soft, Non-Tender, Bowel Sounds Present Integumentary Skin Remarks LLE ischemia Extremeties Extremities Exam: No Edema Neurologic Neuro Exam: Stuporous Assessment/Plan Problem List: (1) MARLYN (acute kidney injury) Plan: MARLYN on CKD, with baseline creatinine 1.4-1.8 MARLYN / ATN likely secondary to hypotension and contrast nephropathy with gangrene of the left leg / sepsis (planned amputation next week). Minimal UOP and hypotension after morphine given overnight. On bipap now, with 2L thoracentesis yesterday Discussed with primary team - given hyperkalemia and recent volume overload with minimal UOP, will initiate dialysis with UF as possible. Patient is DNR, family agreeable to dialysis for now. (2) PAD (peripheral artery disease) Plan: Recent contrast exposure. Planned amputation when stable, possibly this week. Continue to follow with vascular. (3) COPD (chronic obstructive pulmonary disease) Plan: on Bipap Will do UF as possible with HD today (4) HTN (hypertension) Plan: hypotension at this point with sepsis, recent morphine - continue to monitor. (5) History of CVA (cerebrovascular accident) (6) Bilateral pleural effusion Plan: s/p 2 L throacentesis yesterday. Will do UF as tolerated with HD (7) Hyperkalemia Plan: medically managed today. Will do 2K bath with HD today Problem Qualifiers (1) COPD (chronic obstructive pulmonary disease): Qualified Code: J42 - Chronic bronchitis, unspecified chronic bronchitis type (2) HTN (hypertension): Qualified Code: I10 - Essential hypertension Oh Alberto MD Oct 21, 2016 12:12
[2016-10-21 12:40] LABS: BLOOD GAS BASE EXCESS 4.1 mmol/L (-2-2); BLOOD GAS CARBOXYHEMOGLOBIN 1.7 % (0-4); BLOOD GAS HCO3 30 mmol/L (22-26); BLOOD GAS O2 HGB SATURATION 93 % (90-100); BLOOD GAS OXYGEN CONTENT 13.3 Vol % (12.0-20.0); BLOOD GAS PCO2 67 mmHg (38-42); BLOOD GAS PO2 85 mmHg (61-120); TEMP CORR TO 98.6
[2016-10-21 12:41] LABS: CRITICAL VALUE YES; OXYGEN DEVICE BIPAP
[2016-10-21 12:43] LABS: VENT SETTINGS IPAP12EPAP5
[2016-10-21 12:44] LABS: DRAW SITE LT RADIAL; FIO2 60 %; NUMBER OF ARTERIAL PUNCTURES 2; STAT NO; ULNAR PULSE PRESENT
[2016-10-21] MEDS: RESP: ALBUTEROL 2.5 MG/IPRATROPIUM 0.5 MG NEB (SCH) NEB ×4 (12:46→23:29)
[2016-10-21] MEDS: HEPARIN SODIUM - SQ 10,000 UNITS/ML VIAL SQ SCH ×2 (14:00→21:37)
[2016-10-21 14:45] LABS: BICARBONATE 33.3 MEQ/L (21.0-32.0); POTASSIUM 5.5 MEQ/L (3.5-5.1)
--- NOTE | 2016-10-21 15:22 | PD.PROCEDR ---
Procedure Note Procedure Diagnosis: Acute renal failure Indications: Hemodialysis Consent: Obtained from daughter Anesthesia: Local, lidocaine to side Description of the Procedure: The patient was placed in the supine, mild- Trendelenburg position. The area was prepped and draped sterilely. A 19g needle was inserted under negative pressure aspiration and dark venous blood was obtained. A guidewire was inserted easily without resistance. A small incision was made using a #11 blade. Using a modified Seldinger technique, the dilator and 14 American vascular catheter were advanced over the guidewire without resistance. All ports were aspirated and flushed, and had brisk blood return. The line was secured at the skin using 2-0 silk interrupted sutures. A Biopatch and Transparent sterile dressing were applied. There were no immediate complications noted. There was minimal EBL. The patient tolerated the procedure well. Right internal jugular Ultrasound Guidance: Ultrasound guidance was used to identify the right internal jugular. The vascular anatomy was normal. The vessel was cannulated under direct, real-time ultrasound visualization. After placement of the guidewire, confirmation of the guidewire in the lumen of the vessel was made using ultrasound visualization, before dilation of the tract. A Chest x-ray has been ordered. I personally performed the procedure. Holly Sarabia MD Oct 21, 2016 15:22
--- NOTE | 2016-10-21 16:10 | RADRPT ---
EXAM DATE/TIME: 10/21/2016 15:16 [facility] COMPARISON: CHEST SINGLE AP, October 21, 2016, 1:16. CHEST SINGLE AP, October 21, 2016, 11:19. INDICATIONS : Evaluate for vascath placement. MEDICAL HISTORY : Chronic obstructive pulmonary disease. Congestive heart failure. Hypercholesterolemia. Hypertension. SURGICAL HISTORY : Thoracocentesis. ENCOUNTER: Subsequent ACUITY: 1 day PAIN SCORE: Non-responsive. LOCATION: chest FINDINGS: There is near-complete opacification of the left hemithorax. This has worsened compared to the prior study. There is prominence of the pulmonary vasculature of the right lung suggestive of pulmonary yvan ous congestion. Continues to be an infiltrate in the right lung base without significant change. Ther e is no pneumothorax. CONCLUSION: 1. There is near-complete opacification of the left hemithorax compared to the prior study. 2. Persistent right lower lung infiltrate 3. Pulmonary venous congestion. Job Camarillo MD on October 21, 2016 at 16:07 Board Certified Radiologist. This report was verified electronically.
[2016-10-21] MEDS: GENTAMICIN SULFATE (DIALYSIS USE ONLY) 20 MG/2 ML VIAL IV PRN (16:12)
[2016-10-21] MEDS: methylPREDNISolone SOD SUCC 125 MG/2 ML VIAL IV PUSH SCH (18:00)
--- NOTE | 2016-10-21 20:10 | HHI.PR ---
Addendum to Inpatient Note Addendum Reason: Additional Documentation Additional Information Courtesy visit from his outpatient Primary Care: I saw pt luz at 7:30 after seeing his significant decline documented from this AM. When I arrived he was on bipap after having had dialysis, was initially asleep but awakened easily, recognized me, and was able to hold a conversation. He was aware he was in the hospital and aware that a surgeon was talking about removing part of his leg due to the blood flow. He wasn't really aware of dialysis that was done today. We discussed his pleural effusion and his kidney failure and lab abnormalities. He told me that he is not on speaking terms with his son, Lefty, who used to live in [place] and he states is his documented POA, and hasn't seen or spoken to him in over a month. He referred me to his daughter, Anitha , and was able to try to tell me her phone number (difficult to understand with his mask so I referred to his chart). He told me his daughter will be here on Sunday at Midnight. I called and spoke with Anitha, who confirmed her flight arrives tomorrow at midnight. She is willing to be his POA and hoping he will be lucid enough to be able to get the needed paperwork done. She states she does not have any POA papers on her dad but feels they will be in his house. She states he was working with his caregiver, Krysten, to change the POA papers recently but not sure that was completed. She notes she hasn't spoken to her brother for more than 20 years and that he has had issues with ETOH and drugs ( Mr. Reid hasn't mentioned such things to me in the past). 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 She states they have no way to contact him (I asked if the company selling his house would be able to contact him...). She is aware of her dad's critical illness. We also discussed palliative care as an option if surgery isn't able to be done and she seemed receptive but would like to be able to speak with her dad in a lucid state prior to making decisions. He has been confused the last few times he spoke with her on the phone. Since he was independent and working just about 6-8 weeks ago, they really didn't previously discuss end of life issues. Hopefully his clinical status will stabilize until she can get her and these POA issues can be resolved. Fidelia Rodriguez MD Oct 21, 2016 20:10
[2016-10-22] VITALS (17 sets, daily range): BP systolic 102–121; BP diastolic 54–58; PULSE 59–69; RESP 18–24; TEMP 98–99.2; O2SAT 94–100
[2016-10-22] MEDS: methylPREDNISolone SOD SUCC 125 MG/2 ML VIAL IV PUSH SCH ×5 (02:26→23:34)
[2016-10-22] MEDS: RESP: ALBUTEROL 2.5 MG/IPRATROPIUM 0.5 MG NEB (SCH) NEB ×5 (03:39→20:28)
[2016-10-22 05:17] LABS: BASOPHIL % 0.1 % (0.0-2.0); HEMO FLAGS DIFF FINAL; LYMPH % 3.6 % (9.0-44.0); LYMPHOCYTE # 0.4 TH/MM3 (1.0-4.8); MEAN CELL VOLUME 83.2 FL (80.0-100.0); MEAN CORPUSCULAR HGB CONC 32.4 % (32.0-36.0); MONO % 3.6 % (0.0-8.0); NEUT % 92.7 % (16.0-70.0); PLATELET COUNT 149 TH/MM3 (150-450); RED BLOOD COUNT 3.61 MIL/MM3 (4.50-5.90); RED CELL DISTRIBUTION WIDTH 15.8 % (11.6-17.2); WHITE BLOOD COUNT 9.7 TH/MM3 (4.0-11.0)
[2016-10-22 05:23] LABS: ALKALINE PHOSPHATASE 51 U/L (45-117); ALT (GPT) 18 U/L (12-78); ANION GAP 9 MEQ/L (5-15); AST (GOT) 43 U/L (15-37); BICARBONATE 31.8 MEQ/L (21.0-32.0); BLOOD UREA NITROGEN 58 MG/DL (7-18); CHLORIDE 95 MEQ/L (98-107); GLOMERULAR FILTRATION RATE 15 ML/MIN (>89); POTASSIUM 5.2 MEQ/L (3.5-5.1); SODIUM (NA) 136 MEQ/L (136-145); TOTAL BILIRUBIN ADULT 0.5 MG/DL (0.2-1.0)
[2016-10-22] MEDS: HEPARIN SODIUM - SQ 10,000 UNITS/ML VIAL SQ SCH (06:41)
[2016-10-22] MEDS: PRAVASTATIN SOD 20 MG TAB PO SCH (08:44)
[2016-10-22] MEDS: ALPRAZolam 0.5 MG TAB PO SCH (08:44)
[2016-10-22] MEDS: SODIUM CHLORIDE 0.9% FLUSH 10 ML FLUSH IV FLUSH SCH ×2 (08:45→21:08)
[2016-10-22] MEDS: TIOTROPIUM BROMIDE 18 MCG INH INH SCH (09:00)
--- NOTE | 2016-10-22 09:43 | HHI.NPPN ---
Subjective Additional Remarks Patient much more alert and awake today, off bipap. Tolerated HD yesterday Objective Data Data 10/21/16 10/22/16 19:00 07:00 Intake Total 370 ml 332 ml Output Total 20 ml 45 ml Balance 350 ml 287 ml Intake Oral 0 ml 290 ml IV Total 320 ml 42 ml Albumin 50 ml Output Urine Total 20 ml 45 ml Bladder Scan Volume Amount 60 ml # Bowel Movements 0 0 Vital Signs Date Time Temp Pulse Resp B/P Pulse Ox O2 Delivery O2 Flow Rate FiO2 10/22/16 09:20 94 Nasal Cannula 6.00 10/22/16 09:00 100 Nasal Cannula 6.00 10/22/16 08:02 100 Non-Rebreather 15.00 10/22/16 07:00 99 Non-Rebreather 100 10/22/16 06:00 68 10/22/16 04:00 61 10/22/16 04:00 98.3 61 23 114/56 100 10/22/16 02:00 59 10/22/16 01:11 97 50 10/22/16 00:00 59 10/22/16 00:00 98.0 59 24 107/54 98 10/21/16 22:08 100 60 10/21/16 22:00 56 10/21/16 20:00 98.2 56 19 101/55 100 10/21/16 20:00 56 10/21/16 19:53 100 BiPAP 60 10/21/16 19:45 100 60 10/21/16 19:00 95 Bi-Pap 60 10/21/16 18:03 64 10/21/16 16:26 99 60 10/21/16 16:00 66 10/21/16 16:00 98.3 65 22 91/54 87 10/21/16 14:00 62 10/21/16 12:30 64 10/21/16 11:26 95 60 10/21/16 10:00 61 -: 10/22/16 0429 10/22/16 0429 Physical Exam General Appearance: Well Developed Appearance Remarks lethargic Throat Throat Exam: Oral Mucosa [place] & Moist Neck Neck Exam: Neck Supple Pulmonary Resp Exam: Diminished Breath Sounds Cardiology CV Exam: Regular, Normal Sinus Rhythm Gastrointestinal/Abdomen GI Exam: Soft, Non-Tender, Bowel Sounds Present Integumentary Skin Remarks LLE ischemia Extremeties Extremities Exam: No Edema Neurologic Neuro Exam: Alert, Awake Assessment/Plan Problem List: (1) MARLYN (acute kidney injury) Plan: MARLYN on CKD, with baseline creatinine 1.4-1.8 MARLYN / ATN likely secondary to hypotension and contrast nephropathy with gangrene of the left leg / sepsis (planned amputation next week). HD initiated yesterday with 3L UF, after patient had developed anuria and minimal UOP on Bipap. He had hypotension after morphine dosing Sunday night. Significant improvement in respiratory status today. Ongoing minimal UOP - will plan for HD again tomorrow. Monitor UOP and labs for any signs of renal recovery. Patient is DNR, family agreeable to dialysis for now. (2) PAD (peripheral artery disease) Plan: Recent contrast exposure. Planned amputation when stable, possibly this week. Continue to follow with vascular. (3) COPD (chronic obstructive pulmonary disease) Plan: Off Bipap now, after 3L UF with HD Continue to monitor (4) HTN (hypertension) Plan: BP stable, hypotensive yesterday after morphine - continue to monitor. (5) History of CVA (cerebrovascular accident) (6) Bilateral pleural effusion Plan: s/p 2 L throacentesis Sunday. Further UF with HD tomorrow as tolerated (7) Hyperkalemia Plan: 2K bath with HD yesterday. Continue to monitor, HD again tomorrow Problem Qualifiers (1) COPD (chronic obstructive pulmonary disease): Qualified Code: J42 - Chronic bronchitis, unspecified chronic bronchitis type (2) HTN (hypertension): Qualified Code: I10 - Essential hypertension Oh Alberto MD Oct 22, 2016 09:43
[2016-10-22] MEDS ORDERED: oxyCODONE/ACETAMINOPHEN 5 MG/325 MG TAB PO PRN (10:00)
--- NOTE | 2016-10-22 10:47 | HHI.PR ---
Subjective Remarks Patient is awake and alert denies cp/sob denies diarrhea vital signs stable Objective Vitals Vital Signs Date Time Temp Pulse Resp B/P Pulse Ox O2 Delivery O2 Flow Rate FiO2 10/22/16 10:00 69 10/22/16 09:20 94 Nasal Cannula 6.00 10/22/16 09:00 100 Nasal Cannula 6.00 10/22/16 08:02 100 Non-Rebreather 15.00 10/22/16 08:00 98.3 68 18 112/54 99 10/22/16 08:00 66 10/22/16 07:00 99 Non-Rebreather 100 10/22/16 06:00 68 10/22/16 04:00 61 10/22/16 04:00 98.3 61 23 114/56 100 10/22/16 02:00 59 10/22/16 01:11 97 50 10/22/16 00:00 59 10/22/16 00:00 98.0 59 24 107/54 98 10/21/16 22:08 100 60 10/21/16 22:00 56 10/21/16 20:00 98.2 56 19 101/55 100 10/21/16 20:00 56 10/21/16 19:53 100 BiPAP 60 10/21/16 19:45 100 60 10/21/16 19:00 95 Bi-Pap 60 10/21/16 18:03 64 10/21/16 16:26 99 60 10/21/16 16:00 66 10/21/16 16:00 98.3 65 22 91/54 87 10/21/16 14:00 62 10/21/16 12:30 64 10/21/16 11:26 95 60 I/O 10/21/16 10/21/16 10/21/16 10/22/16 10/22/16 10/22/16 07:00 15:00 23:00 07:00 15:00 23:00 Intake Total 338 ml 370 ml 92 ml 240 ml Output Total 380 ml 20 ml 25 ml 20 ml Balance -42 ml 350 ml 67 ml 220 ml Intake Oral 0 ml 50 ml 240 ml IV Total 338 ml 320 ml 42 ml 0 ml Albumin 50 ml Output Urine Total 380 ml 20 ml 25 ml 20 ml Bladder Scan Volume Amount 60 ml # Bowel Movements 0 0 0 Result Diagram: 10/22/16 0429 10/22/16 0429 Imaging Last Impressions Chest X-Ray 10/21/16 0000 Signed Impressions: Service Date/Time: Friday, October 21, 2016 15:16 - CONCLUSION: 1. There is near-complete opacification of the left hemithorax compared to the prior study. 2. Persistent right lower lung infiltrate 3. Pulmonary venous congestion. Job Camarillo MD Renal Ultrasound 10/20/16 0000 Signed Impressions: Service Date/Time: Thursday, October 20, 2016 16:52 - CONCLUSION: 1. Slight increase in echogenicity of the kidneys which can suggest some degree of medical renal disease. 2. Right pleural effusion. iWllis Garcia MD Head CT 10/18/16 0000 Signed Impressions: Service Date/Time: Tuesday, October 18, 2016 13:56 - CONCLUSION: 1. No acute intracranial abnormality is identified. 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 Profunda branches reconstitute. Left superficial femoral artery is proximally occluded and severely diseased following reconstitution. No healthy appearing potential target vessels above the calf on the left. Less severe runoff changes on the right as described. Severe visceral arterial disease Large pleural effusions. Sizable calcific thoracic disc herniation, incompletely seen Willis Chen MD Lower Extremity Ultrasound 10/13/16 0000 Signed Impressions: Service Date/Time: Thursday, October 13, 2016 08:32 - CONCLUSION: Negative for deep venous thrombosis. Milton Farfan MD FACR Objective Remarks GENERAL: This is a well-nourished, well-developed patient, in mild respiratory distress. CARDIOVASCULAR: Regular rate and regular rhythm without murmurs, gallops, or rubs. RESPIRATORY: Decreased breath sounds on left lung field. Right lung field shows expiratory wheezing. No crackles or rhonchi auscultated. GASTROINTESTINAL: Abdomen soft, non-tender, nondistended. Normal, active bowel sounds MUSCULOSKELETAL: Left leg shows necrotic second and third toes. The left foot has a purple and mottled discoloration. Pulses are not palpable in the left leg. The extremity is cold to touch. NEURO: lethargic. Does not follow commands. Procedures none Medications and IVs Current Medications Medications (Trade) Dose Ordered Sig/Jennifer Route Start Time Stop Time Status Last Admin (NS Flush) 2 ml UNSCH PRN IV FLUSH 10/12/16 21:45 (NS Flush) 2 ml BID IV FLUSH 10/13/16 09:00 10/22/16 08:45 (Narcan Inj) 0.4 mg UNSCH PRN IV 10/12/16 21:45 10/21/16 11:35 (Xanax) 0.5 mg DAILY PO 10/13/16 09:00 10/22/16 08:44 (Procardia Xl) 60 mg BID PO 10/13/16 09:00 Hold 10/20/16 08:34 (Spiriva Inh) 18 mcg DAILY INH 10/13/16 09:00 10/20/16 08:35 Pravastatin Sodium 20 mg 20 mg DAILY PO 10/13/16 09:00 10/22/16 08:44 (Levaquin 750 Mg Premix Inj) 150 ml @ 100 mls/hr Q48H IV 10/12/16 23:00 10/20/16 21:50 (Lopressor) 12.5 mg Q12HR PO 10/15/16 11:00 Hold 10/20/16 08:34 (Pill Splitter) 1 ea UNSCH PRN OTHER 10/15/16 10:15 10/16/16 09:21 (Atropine Inj) 0.5 mg Q5M PRN IV PUSH 10/20/16 18:00 Methylprednisolone Sodium Succinate 60 mg 60 mg Q6HR IV PUSH 10/21/16 18:00 10/22/16 06:41 (NS 1000 ml Inj) 1,000 ml @ 0 mls/hr Q0M PRN IV 10/21/16 11:55 10/21/16 16:12 Heparin Sodium (Porcine) 8000 units 8,000 units UNSCH PRN IVF 10/21/16 12:00 Sodium Chloride 1,000 ml @ 200 mls/hr Q5H PRN IV 10/21/16 11:55 (NS 1000 ml Inj) 1,000 ml @ 0 mls/hr Q0M PRN IV 10/21/16 11:55 (Mannitol Inj) 12.5 gm UNSCH PRN IV 10/21/16 12:00 10/21/16 16:12 (Albumin 25% Inj) 25 gm UNSCH PRN IV 10/21/16 12:00 10/21/16 16:11 (NS Flush) 5 ml UNSCH PRN IV FLUSH 10/21/16 12:00 (Heparin Inj) UNSCH PRN .XX 10/21/16 12:00 10/21/16 16:11 (Gentamicin (Dialysis) Inj) 20 mg UNSCH PRN IV 10/21/16 12:00 10/21/16 16:12 (Zofran Inj) 4 mg UNSCH PRN IV 10/21/16 12:00 (Tylenol) 650 mg UNSCH PRN PO 10/21/16 12:00 10/22/16 02:26 (Benadryl) 25 mg UNSCH PRN PO 10/21/16 12:00 (Nitrostat Sl) 0.4 mg UNSCH PRN SL 10/21/16 12:00 (Catapres) 0.1 mg UNSCH PRN PO 10/21/16 12:00 Gelatin 1 foam 1 foam UNSCH PRN TOP 10/21/16 12:00 (Heparin-D5W Inj) 250 ml @ 0 mls/hr TITRATE IV 10/22/16 10:00 (Percocet 5-325 Mg) 1 tab Q4H PRN PO 10/22/16 10:00 (Percocet 5-325 Mg) 2 tab Q6H PRN PO 10/22/16 10:00 Urinary Catheter: Yes Assessment to: Continue Palumbo insert reason: Measure Accurate Output Vascular Central Line Catheter: Yes Date of Insertion: Oct 21, 2016 Line: Central Venous Catheter A/P Problem List: (1) Ischemia of left lower extremity ICD Code: I99.8 Status: Acute (2) MARLYN (acute kidney injury) ICD Code: N17.9 Status: Acute (3) Non-sustained ventricular tachycardia ICD Code: I47.2 Status: Acute (4) COPD (chronic obstructive pulmonary disease) ICD Code: J44.9 Status: Chronic (5) History of CVA (cerebrovascular accident) ICD Code: Z86.73 Status: Chronic (6) HTN (hypertension) ICD Code: I10 Status: Chronic (7) Atrial fibrillation ICD Code: I48.91 Status: Acute (8) Bilateral pleural effusion ICD Code: J90 Status: Acute (9) Acute hypoxemic respiratory failure ICD Code: J96.01 Status: Acute (10) Subtherapeutic international normalized ratio (INR) ICD Code: R79.1 Status: Acute (11) DNR (do not resuscitate) discussion ICD Code: Z71.89 Status: Acute (12) Hyperkalemia ICD Code: E87.5 Status: Acute (13) Hypoglycemia ICD Code: E16.2 Status: Acute Assessment and Plan (1) Ischemia of left lower extremity Plan: Patient was admitted to the medical floor and restless surgery consulted. The patient underwent left lower extremity angiogram with findings described as severe inflow and outflow disease. Vascular surgery recommends CTA A/P 2 toes, very likely to meet major amputation. Consult for second opinion has been placed by vascular surgery. 10/19 the patient is status post CTA with runoff which showed aorto iliac occlusion. Left common femoral arteries occlude it. The left superficial femoral arteries proximally included and severely diseased following with constitution. No healthy-appearing potential target vessel above the calf on the left. Severe visceral arterial disease large pleural effusions. Vascular surgery recommends amputation. Second opinion consult was placed. (2) MARLYN (acute kidney injury) Plan: Likely prerenal azotemia, creatinine continues to trend down . Continue to monitor BUN/creatinine, strict I's and O's, avoid nephrotoxins. Patient status post angiogram that could result in further kidney injury. Continue to monitor BUN/creatinine. Continue IV fluids. 10/20 Now creatinine elevated up to 2.91 from 1.42 likely contrast induced nephropathy since patient had a CTA of the aorta with runoff on 10/18/16. I will consult nephrology. Urine output is marginal. Continue to hold IV fluids in view that patient is volume overloaded with large pleural effusion on the left hemithorax. 10/21 Patient's creatinine trending up and now at 4.16 and oliguria. Likely ATN at this point. Patient also with elevated k at 5.6 - D50 and Kayexalate ordered. Discussed the case with Dr. Alberto from nephrology who will proceed to dialyze the patient. (3) Non-sustained ventricular tachycardia Plan: Echocardiogram showed EF of 35%. The patient started on metoprolol and is being monitored on telemetry. Cardiology consultation appreciated. 10/20 patient is borderline hypotensive, I will hold beta shelly for now. Continue to monitor on telemetry. (4) COPD (chronic obstructive pulmonary disease) Plan: Patient is oxygen dependent. Continue Spiriva with neck treatments. 10/20 patient has expiratory wheezing in the right lung field. Likely mild COPD exacerbation versus bronchial hyperreactivity from fluid overload. I will give 1 dose of Solu-Medrol 125 mg IV once. Continue duo nebs as needed for signs of breath and wheezing. (5) History of CVA (cerebrovascular accident) Plan: Continue statin, patient previously on Coumadin on hold now for planned procedure. INR 2.3, continue to monitor PT/INR and start heparin drip once INR falls below 2. (6) HTN (hypertension) Plan: Continue Procardia and metoprolol. BP seems to be stable. Continue to monitor vital signs. 10/20 patient now borderline hypotensive. Hold Bacardi and metoprolol. 10/21 Patient's blood pressure transiently improved last night but in the 90's systolic overnight. 1 amp of 25% of albumin ordered. (7) Atrial fibrillation Plan: EKG reviewed by me showed atrial flutter with a ventricular rate of 62 bpm. Atrial fibrillation/atrial flutter is rate controlled, continue beta shelly which has been started by cardiology. Echocardiogram showed a systolic function moderately reduced with an EF of 35-40 %. Diffuse hypokinesis. Trace aortic regurgitation. Mild to moderate mitral valve regurgitation. Moderate tricuspid regurgitation. Cardiology consulted, appreciate recommendations. INR is therapeutic, I will give vitamin K to try to bring the INR down so that the patient could have drainage of the pleural effusion. Continue to monitor PT /INR daily. Will start bridge to heparin after I talk to IR regarding thoracentesis. 10/21 INR responded to vitamin K administration. INR subtherapeutic. 10/22 I will start the patient on heparin gtt. (8) Bilateral pleural effusion Plan: Recent status post ultrasound-guided drainage of the left pleural effusion. Repeat chest x-ray after drainage showed improvement of aeration Patient has a large left pleural effusion and a moderate right pleural effusion. As seen on CTA of the aorta with runoff. I will order a chest x-ray. Appreciate recommendations. Patient is status post drainage of left pleural effusion. Repeat chest x-ray after drainage showed improved variation in the left lung following thoracentesis. (9) Acute hypercarbic hypoxemic respiratory failure Plan: Due to large pleural effusions. Patient desated into the high 70s yesterday. Status post drainage of left pleural effusion. 10/21 Patient was administered 12 mg of IV morphine overnight for pain and agitation. Patient today lethargic. ABG was obtained which showed a pH of 7.23 , PCO2 78.[address] the patient on BiPAP 04/19. Case discussed with Dr. Pereira who is covering for pulmonary. A repeat ABG will be done after 1 hour of the patient being on BiPAP. Power Grader Operator consulted for placement of vas cath. Discussed the case with Dr Sarabia and she told me the patient could remain under my care. 10/22 Respiratory failure much improved patient is off bipap and non rebreather mask and now is on nasal canula. Continue to monitor respiratory status and continue with supplemental O2 to keep o2 sat < 92%. Appreciate Dr. Aviles's visit and clarification with power of attorney lawyer status. Apparently the patient has not kept in contact with his son. And as per conversations with the daughter and reviewing Dr. Aviles's records, the patient's son who is the power of attorney lawyer has moved out of the area and cannot be found. Apparently the patient's daughter was working on changing the POA of attorney lawyer papers, however it is uncertain if this was completed. The patient's daughter will be coming to [place] and be here tomorrow morning. Discharge Planning Called and discussed the case with the patient's daughter. She again repeats that the patient should be DO NOT RESUSCITATE/DO NOT INTUBATE. She however agrees with dialysis for now. Problem Qualifiers (1) COPD (chronic obstructive pulmonary disease): Qualified Code: J42 - Chronic bronchitis, unspecified chronic bronchitis type (2) HTN (hypertension): Qualified Code: I10 - Essential hypertension (3) Atrial fibrillation: Qualified Code: I48.2 - Chronic atrial fibrillation Yfn Hernandez MD Oct 22, 2016 10:47
[2016-10-22 10:53] LABS: HEMATOCRIT 29.9 % (39.0-51.0); MEAN CELL VOLUME 82.4 FL (80.0-100.0); MEAN CORPUSCULAR HEMOGLOBIN 26.9 PG (27.0-34.0); MEAN CORPUSCULAR HGB CONC 32.6 % (32.0-36.0); PLATELET COUNT 149 TH/MM3 (150-450); RED BLOOD COUNT 3.62 MIL/MM3 (4.50-5.90); RED CELL DISTRIBUTION WIDTH 15.5 % (11.6-17.2); REVIEW FLAG FINAL; WHITE BLOOD COUNT 8.9 TH/MM3 (4.0-11.0)
[2016-10-22] MEDS: HEPARIN-D5W INJ 250 ML IV SCH (10:59)
[2016-10-22 11:02] LABS: APTT (PATIENT) 40.2 SEC (24.3-30.1); INTERNATIONAL NORMALIZED RATIO 1.2 RATIO; PROTHROMBIN TIME - PATIENT 13.7 SEC (9.8-11.6)
[2016-10-22] MEDS: oxyCODONE/ACETAMINOPHEN 5 MG/325 MG TAB PO PRN ×2 (11:20→23:35)
[2016-10-22 17:27] LABS: APTT (PATIENT) 64.8 SEC (24.3-30.1)
--- NOTE | 2016-10-22 20:08 | HHI.PR ---
Subjective Remarks Used CPAP last night Now on 6LNC Feels better Denies SOB Objective Vital Signs Vital Signs Date Time Temp Pulse Resp B/P Pulse Ox O2 Delivery O2 Flow Rate FiO2 10/22/16 18:00 65 10/22/16 16:00 98.6 65 22 121/58 94 10/22/16 16:00 65 10/22/16 14:00 68 10/22/16 12:00 68 10/22/16 12:00 99.2 67 20 105/55 97 10/22/16 10:39 96 Nasal Cannula 6.00 10/22/16 10:00 69 10/22/16 09:20 94 Nasal Cannula 6.00 10/22/16 09:00 100 Nasal Cannula 6.00 10/22/16 08:02 100 Non-Rebreather 15.00 10/22/16 08:00 98.3 68 18 112/54 99 10/22/16 08:00 66 10/22/16 07:00 99 Non-Rebreather 100 10/22/16 06:00 68 10/22/16 04:00 61 10/22/16 04:00 98.3 61 23 114/56 100 10/22/16 02:00 59 10/22/16 01:11 97 50 10/22/16 00:00 59 10/22/16 00:00 98.0 59 24 107/54 98 10/21/16 22:08 100 60 10/21/16 22:00 56 I/O 10/21/16 10/21/16 10/21/16 10/22/16 10/22/16 10/22/16 07:00 15:00 23:00 07:00 15:00 23:00 Intake Total 338 ml 370 ml 92 ml 240 ml 741 ml Output Total 380 ml 20 ml 25 ml 20 ml 75 ml Balance -42 ml 350 ml 67 ml 220 ml 666 ml Intake Oral 0 ml 50 ml 240 ml 720 ml IV Total 338 ml 320 ml 42 ml 0 ml 21 ml Albumin 50 ml Output Urine Total 380 ml 20 ml 25 ml 20 ml 75 ml Bladder Scan Volume Amount 60 ml # Bowel Movements 0 0 0 0 Result Diagram: 10/22/16 1036 10/22/16 0429 Objective Remarks GENERAL: Patient is 81yo lethargic and drowsy now on BIPAP SKIN: Warm and dry. HEAD: Normocephalic. EYES: No scleral icterus. No injection or drainage. NECK: Supple, trachea midline. No JVD or lymphadenopathy. CARDIOVASCULAR: Regular rate and rhythm without murmurs, gallops, or rubs. RESPIRATORY: Breath sounds equal bilaterally. No accessory muscle use. GASTROINTESTINAL: Abdomen soft, non-tender, nondistended. MUSCULOSKELETAL: No cyanosis, ischemic LLE. Neuro: Lethargic. A/P Assessment and Plan 1)Acute hypercapnic resp acidosis--improved 2)Left pleural effusion, s/p Thoracentesis with removal 2200ml 3)COPD 4)CHF/Cardiomyopathy 5)PVD with ischemic LLE 6)ARF 7)Encephalopathy-multifactorial PLAN: Continue with oxygen keep sat >92% Bronchodilators, place on solumederol 50mg IV Q8, on Spiriva Place on BIPAP and repeat ABG patient is no code DNR. Monitor renal function, I/O's, avoid nephrotoxins. Renal is following. Patient might need HD. Continue with abx ( Levaquin)monitor for signs of infections ( Fever, WBC). Nathaniel Bear MD Oct 22, 2016 20:08
[2016-10-22] MEDS: LEVOFLOXACIN 750 MG PREMIX INJ 150 ML IV SCH (21:08)
[2016-10-23] VITALS (17 sets, daily range): BP systolic 98–118; BP diastolic 53–61; PULSE 59–71; RESP 17–24; TEMP 97.7–99.3; O2SAT 92–100
[2016-10-23] LABS: APTT (PATIENT) 71.1 SEC (24.3-30.1)
[2016-10-23] MEDS: RESP: ALBUTEROL 2.5 MG/IPRATROPIUM 0.5 MG NEB (SCH) NEB ×7 (01:31→23:16)
[2016-10-23 04:49] LABS: AUTOMATED NEUTROPHIL # 12.5 TH/MM3 (1.8-7.7); BASOPHIL % 0.3 % (0.0-2.0); HEMO FLAGS DIFF FINAL; LYMPH % 1.4 % (9.0-44.0); LYMPHOCYTE # 0.2 TH/MM3 (1.0-4.8); MEAN CELL VOLUME 82.4 FL (80.0-100.0); MEAN CORPUSCULAR HEMOGLOBIN 26.7 PG (27.0-34.0); MEAN CORPUSCULAR HGB CONC 32.4 % (32.0-36.0); MONO % 1.3 % (0.0-8.0); PLATELET COUNT 138 TH/MM3 (150-450); RED BLOOD COUNT 3.64 MIL/MM3 (4.50-5.90); RED CELL DISTRIBUTION WIDTH 15.4 % (11.6-17.2); WHITE BLOOD COUNT 12.8 TH/MM3 (4.0-11.0)
[2016-10-23 04:59] LABS: APTT (PATIENT) 68.1 SEC (24.3-30.1)
[2016-10-23 05:21] LABS: ALKALINE PHOSPHATASE 60 U/L (45-117); ALT (GPT) 21 U/L (12-78); ANION GAP 9 MEQ/L (5-15); AST (GOT) 44 U/L (15-37); BICARBONATE 31.4 MEQ/L (21.0-32.0); BLOOD UREA NITROGEN 76 MG/DL (7-18); CHLORIDE 94 MEQ/L (98-107); GLOMERULAR FILTRATION RATE 11 ML/MIN (>89); MAGNESIUM 2.4 MG/DL (1.5-2.5); POTASSIUM 5.1 MEQ/L (3.5-5.1); SODIUM (NA) 134 MEQ/L (136-145); TOTAL BILIRUBIN ADULT 0.4 MG/DL (0.2-1.0)
[2016-10-23] MEDS: methylPREDNISolone SOD SUCC 125 MG/2 ML VIAL IV PUSH SCH ×3 (05:51→17:24)
[2016-10-23] MEDS: PRAVASTATIN SOD 20 MG TAB PO SCH (08:42)
[2016-10-23] MEDS: ALPRAZolam 0.5 MG TAB PO SCH (08:42)
[2016-10-23] MEDS: SODIUM CHLORIDE 0.9% FLUSH 10 ML FLUSH IV FLUSH SCH ×2 (08:43→21:00)
[2016-10-23] MEDS: TIOTROPIUM BROMIDE 18 MCG INH INH SCH (08:43)
[2016-10-23] MEDS: HEPARIN-D5W INJ 250 ML IV SCH (09:21)
--- NOTE | 2016-10-23 10:02 | PD.CONS ---
Consult Service Palliative Care . Consult Requested By Dr. Sarabia . Primary Care Physician Fidelia Aviles MD . Reason for Consultation a. To assist with evaluation and management of symptoms including: dyspnea ; pain b. To assist medical decision maker(s) with: better understanding of current medical conditions; weighing benefits/burdens of medical treatment options; making medical treatment decisions. . HPI History of Present Illness Mr. Ried is an 81 y/o male with a known medical history including PAD, atrial fibrillation; COPD; cerebrovascular disease with TIA; hyperlipidemia; and allergic rhinitis who was brought to the ED by paramedics on 10/12/16 after police were called to the home for a wellness check and found the patient quite groggy. The patient was complaining primarily of left lower extremity pain. The patient suffered a fall on 08/31/16 and reported that he had twisted his ankle. He presented to the emergency department on 09/02/16 as he become unable to ambulate because of pain. He also had noted increased swelling in the left ankle and foot. Exam in the ED at that time showed bilateral lower extremity venous stasis edema and mild erythema of the left lower extremity. There is focal tenderness to palpation of the medial and lateral malleolus of the left ankle. X-rays showed some chronic changes but no acute abnormalities and patient was observed to be able to ambulate in the ED. He was given an Alfa wrap and discharged home. Mr. Reid apparently went home and then rarely got out of bed. He had been the primary caregiver for his demented at home. About a week later she was moved to long-term care at [place]. Mr. Reid had some hired caregivers who had been helping his now helping him at home. They had some concerns that he might be taking too much pain medication. Prior to the patient's fall, he had been quite active. The patient was walking without any type of assistive device. He was cognitively sharp and took care of all his financial affairs was able to help care for his . He drove. 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 In the emergency department on 10/12/2016, initial vital signs were as follows: Temperature 98.2; pulse 67; respiratory rate 20; blood pressure 121/58; pulse oximetry 100% on room air Physical examination by the emergency department physician noted the following: The patient was mildly somnolent but no apparent distress. There were gangrenous changes of the second and third toes in the left lower extremity. The distal left lower extremity was also violaceous and cool. A single ulcer was seen on the proximal tibia. Pulses were barely palpable in the left lower extremity. The remainder of the exam was unremarkable. Initial diagnostic studies were as follows: * CBC showed WBC 8.7; hemoglobin 11.2; platelet count 236 * Coagulation profile showed PT 34.1; INR 2.9; PTT 52.4 * Chemistry profile showed sodium 135; potassium 4.2; chloride 92; CO2 36.1; anion gap 7; BUN 72; creatinine 2.81; GFR 22; glucose 103; lactic acid 1.1; calcium 8.3 * Liver function studies were unremarkable except for low albumin at 2.7 * Recent ankle brachial index per outside records found to be 0.74 R/0.38 L. * Left lower extremity ultrasound showed no evidence of deep venous thrombosis. The patient was admitted to the hospitalist service. Vascular surgery was consulted. The patient had episodes of nonsustained ventricular tachycardia shortly after admission. Cardiology was consulted. Echocardiogram revealed an ejection fraction of 35-40% with moderate mitral regurgitation; moderate tricuspid regurgitation; and pulmonary hypertension. Low-dose beta blockers were added. Cardiovascular surgery performed angiography on 10/17/16. Extensive and severe disease was noted. 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 The left common femoral artery was included. The left superficial femoral artery was proximally included. There were no healthy-appearing potential target vessels above the calf on the left. Incidental findings included large pleural effusions and calcific thoracic disc herniation. Cardiovascular surgery did not feel the left lower extremity could be salvaged through a interventional vascular procedure. A second opinion was requested and performed and agreed with the initial cardiovascular assessment. The patient's kidney function began to decline post angiography with GFR falling from a high of 48 on 10/18/16 down to a GFR of 11. Nephrology of been consulted. Hemodialysis was started. Pulmonology was consulted because of the large pleural effusion. The patient underwent thoracentesis with removal of approximately 1300 cc of clear yellow fluid from the left side on 10/20/16. The patient's respiratory status further declined and he required BiPAP on 10/21/16 and was on a nonrebreather mask on . He has now been weaned back down to nasal cannula. At time of my visit, the patient is arousable. He answers simple questions appropriately. Daughter has just arrived from [place]. He denies significant pain, shortness of breath. He does report fatigue. Pain has been controlled of late with oxycodone/acetaminophen 5-325 for which she is using 1- 2 doses per day. Nursing pain assessments have rated his pain as mostly between 4 and 8. . Function/Cognitive Trajectory Prior to the patient's fall, he had been quite active. The patient was walking without any type of assistive device. He was cognitively sharp and took care of all his financial affairs was able to help care for his . He drove. 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 He has declined rapidly since his fall a proximally 7 weeks ago and has been mostly bedbound since that time. He had been living with his with the help of some hired caregivers. His suffers from dementia. She had to be moved to a memory unit approximately one week after his fall. . Review of Systems ROS Limitations: Clinical Condition Constitutional: COMPLAINS OF: Fatigue, Pain, Generalized weakness, DENIES: Fever, Weight loss Eyes: COMPLAINS OF: Vision loss (wears glasses), DENIES: Blurred vision, Double Vision Ears, nose, mouth, throat: DENIES: Hearing loss Respiratory: COMPLAINS OF: Cough, Wheezing, Sputum production, Shortness of breath, DENIES: Apneas, Hemoptysis Cardiovascular: COMPLAINS OF: Dyspnea on Exertion, Lower Extremity Edema, DENIES: Chest pain, Palpitations, Syncope, Claudication Gastrointestinal: DENIES: Abdominal pain, Black stools, Bloody stools, Constipation, Diarrhea, Nausea, Vomiting, Difficulty Swallowing, Anorexia, Dyspepsia or heartburn Genitourinary: DENIES: Urinary frequency, Urinary incontinence, Urgency, Hematuria, Dysuria, Nocturia Musculoskeletal: COMPLAINS OF: Joint Swelling, DENIES: Joint pain, Muscle aches, Back pain, Neck pain Integumentary: COMPLAINS OF: Rash, DENIES: Pruritus Hematologic/Lymphatics: COMPLAINS OF: Bruising Immunologic/Allergic: DENIES: Urticaria Neurologic: COMPLAINS OF: Abnormal gait, DENIES: Seizures, Tremor Psychiatric: DENIES: Anxiety, Depression, Hallucinations (patient is fatigued and can answer some questions. Review of systems done as well as possible with patient, daughter, and available medical records.) Other ROS: * Multiple tooth extractions Past Family Social History Coded Allergies: Penicillin (Verified Allergy, Severe, 10/13/16) Past Medical History * Peripheral artery disease * COPD * Atrial fibrillation on Coumadin * Cerebrovascular disease with TIA approximately 15 years ago * Hyperlipidemia * Allergic rhinitis . Past Surgical History * Colonoscopy * Cataract surgery . Reported Medications Prehospitalization medications included the following: Alprazolam 0.5 Mg Tab 0.5 Mg PO DAILY Spiriva Handihaler (Tiotropium Inh) 18 Mcg Cap 18 Mcg INH DAILY Furosemide 40 Mg Tab 40 Mg PO DAILY Warfarin 1 Mg Tab 1 Mg PO DAILY Simvastatin 10 Mg Tab 10 Mg PO DAILY Nifedipine 20 Mg Cap 60 Mg PO BID Lisinopril 10 Mg Tab 10 Mg PO DAILY . Current Medications Medications (Trade) Dose Ordered Sig/Jennifer Route Start Time Stop Time Status Last Admin (NS Flush) 2 ml UNSCH PRN IV FLUSH 10/12/16 21:45 (NS Flush) 2 ml BID IV FLUSH 10/13/16 09:00 10/23/16 08:43 (Narcan Inj) 0.4 mg UNSCH PRN IV 10/12/16 21:45 10/21/16 11:35 (Xanax) 0.5 mg DAILY PO 10/13/16 09:00 10/23/16 08:42 (Procardia Xl) 60 mg BID PO 10/13/16 09:00 Hold 10/20/16 08:34 (Spiriva Inh) 18 mcg DAILY INH 10/13/16 09:00 10/23/16 08:43 Pravastatin Sodium 20 mg 20 mg DAILY PO 10/13/16 09:00 10/23/16 08:42 (Levaquin 750 Mg Premix Inj) 150 ml @ 100 mls/hr Q48H IV 10/12/16 23:00 10/22/16 21:08 (Lopressor) 12.5 mg Q12HR PO 10/15/16 11:00 Hold 10/20/16 08:34 (Pill Splitter) 1 ea UNSCH PRN OTHER 10/15/16 10:15 10/16/16 09:21 (Atropine Inj) 0.5 mg Q5M PRN IV PUSH 10/20/16 18:00 Methylprednisolone Sodium Succinate 60 mg 60 mg Q6HR IV PUSH 10/21/16 18:00 10/23/16 05:51 (NS 1000 ml Inj) 1,000 ml @ 0 mls/hr Q0M PRN IV 10/21/16 11:55 10/21/16 16:12 Heparin Sodium (Porcine) 8000 units 8,000 units UNSCH PRN IVF 10/21/16 12:00 Sodium Chloride 1,000 ml @ 200 mls/hr Q5H PRN IV 10/21/16 11:55 (NS 1000 ml Inj) 1,000 ml @ 0 mls/hr Q0M PRN IV 10/21/16 11:55 (Mannitol Inj) 12.5 gm UNSCH PRN IV 10/21/16 12:00 10/21/16 16:12 (Albumin 25% Inj) 25 gm UNSCH PRN IV 10/21/16 12:00 10/21/16 16:11 (NS Flush) 5 ml UNSCH PRN IV FLUSH 10/21/16 12:00 (Heparin Inj) UNSCH PRN .XX 10/21/16 12:00 10/21/16 16:11 (Gentamicin (Dialysis) Inj) 20 mg UNSCH PRN IV 10/21/16 12:00 10/21/16 16:12 (Zofran Inj) 4 mg UNSCH PRN IV 10/21/16 12:00 (Tylenol) 650 mg UNSCH PRN PO 10/21/16 12:00 10/22/16 02:26 (Benadryl) 25 mg UNSCH PRN PO 10/21/16 12:00 (Nitrostat Sl) 0.4 mg UNSCH PRN SL 10/21/16 12:00 (Catapres) 0.1 mg UNSCH PRN PO 10/21/16 12:00 Gelatin 1 foam 1 foam UNSCH PRN TOP 10/21/16 12:00 (Heparin-D5W Inj) 250 ml @ 0 mls/hr TITRATE IV 10/22/16 10:00 10/23/16 09:21 (Percocet 5-325 Mg) 1 tab Q4H PRN PO 10/22/16 10:00 10/22/16 23:35 (Percocet 5-325 Mg) 2 tab Q6H PRN PO 10/22/16 10:00 . Family History * Patient's father at approximately age 79. He had COPD and also had suffered a stroke * The patient's mother at approximately age 93. She also suffered a stroke. * The patient had a sister who of some sort of pulmonary problem . Substance Use Tobacco: 25-ulyo-emez history of smoking. 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 Prescription med abuse: No known prescription drug abuse. Illicits: No known use of illicits. . Psychosocial History Mr. Reid is originally from [place], [place]. He has lived in [place] for approximately 23 years. He is college educated and received a business degree. 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 He retired from [employer] around 1993. 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 Up until his fall proximally 7 weeks ago he was traveling between [place] and [place] on business trips. The patient was once in 1956. He had been living with his up until about 6 weeks ago when, due to dementia, she was moved into long-term care at [place]. Mr. Reid and his had 2 children. DaughterAnitha Carlson in [place]. SonMarklives locally. Anitha has 2 children and Lefty has one child. The patient has reportedly been estranged from his son. Daughter reports that there are no answers to their phone calls. . Spiritual/Cultural Factors Patient came from the [place] tradition. His was Rastafari and he would attend a Rastafari baptist. The advent and spirituality have not played a very important role in his life, his daughter feels she would appreciate a visit from a sewing machine repairer helper. . Living Will: Never completed Health Care Surrogate: Copy in medical record Durable Power of Antique Finisher: Never completed Date completed: Daughter does not know if there is a completed advanced directive. She does not have a copy. . Health Care Surrogate(s): The patient was awake and alert enough to answer questions appropriately this afternoon. He was able to accurately tell me about his work life, date of senior living, where his is now, and where he had lived overseas. I asked him in front of his nursePattywho he would want to make his own health care decisions should he become unable to do so. He answered that he would want his daughterJavon serve in this capacity. He repeated this a second time. I then asked him if he would want his son Lefty to also serve in this capacity. He replied no. The patient was able to sign an "X" to a health care surrogate form which was then witnessed by myself and the nurse. The patient's designation of his daughter is also in accord with what he had told his primary care physicianDr. Aviles. . Documented care wishes: No written documentation of health care wishes/preferences.. Today's verbally stated goals: Daughter had arrived just prior to my visit. She wanted to talk to him about his current medical condition personally before going over goals of medical treatment. She would like to do this on 10/24/16. . Family/friends goals: The patient's daughter feels that once he understands fully his current medical condition and prognosis he will opt for comfort measures and not want to go forward with an amputation. . . Ethical and Legal Issues Patient is currently capacitated to make healthcare decisions but recommend that he make major decisions in a shared fashion with his daughter who we have selected for his health care surrogate. . Physical Exam Vital Signs Date Time Temp Pulse Resp B/P Pulse Ox O2 Delivery O2 Flow Rate FiO2 10/23/16 07:00 95 Nasal Cannula 4.00 10/23/16 06:00 62 10/23/16 04:11 96 Nasal Cannula 4.00 10/23/16 04:00 98.6 59 22 115/57 97 10/23/16 04:00 59 10/23/16 02:00 60 10/23/16 01:31 100 50 10/23/16 00:00 99.3 60 17 98/54 98 10/23/16 00:00 60 10/22/16 22:36 95 50 10/22/16 22:00 65 10/22/16 20:28 95 4.00 10/22/16 20:00 98.0 64 22 102/54 95 10/22/16 20:00 64 10/22/16 19:00 95 Nasal Cannula 4.00 10/22/16 18:00 65 10/22/16 16:00 98.6 65 22 121/58 94 10/22/16 16:00 65 10/22/16 14:00 68 10/22/16 12:00 68 10/22/16 12:00 99.2 67 20 105/55 97 10/22/16 10:39 96 Nasal Cannula 6.00 . 10/22/16 10/23/16 19:00 07:00 Intake Total 741 ml 499 ml Output Total 75 ml 75 ml Balance 666 ml 424 ml Intake Oral 720 ml 240 ml IV Total 21 ml 259 ml Output Urine Total 75 ml 75 ml # Bowel Movements 0 0 . Exam CONSTITUTIONAL/GENERAL: This is an adequately nourished patient in a medical ICU bed. He is sleepy, but arouses easily, and can answer simple questions appropriately and consistently. No apparent distress. TUBES/LINES/DRAINS: Nasal cannula oxygen; Palumbo catheter; peripheral IV; right jugular Vas-Cath SKIN: No jaundice. Dry gangrene noted on the left second and third toes. There is a blackened area on the left heel. There is left lower extremity edema. Discolorationviolaceous appearanceleft lower extremity. Skin temperature appropriate. Not diaphoretic. HEAD: Atraumatic. Normocephalic. EYES: Pupils equal and round and reactive. Extraocular motions intact. No scleral icterus. No injection or drainage. Fundi not examined. ENT: Hearing grossly normal. Nose without bleeding or purulent drainage. Throat without visible erythema, exudates, masses, or lesions. Mostly edentulous. NECK: Trachea midline. Supple, nontender. No palpable thyroid enlargement or nodularity. CARDIOVASCULAR: Frequent skipped beats with monitor showing occasional PVC. No audible murmurs, gallops, or rubs. No JVD. Cannot palpate lower extremity distal pulses. RESPIRATORY/CHEST: Symmetric, unlabored respirations. Clear to auscultation. Breath sounds equal bilaterally but breath sounds diminished. No wheezes, rales , or rhonchi. GASTROINTESTINAL: Abdomen soft, non-tender, nondistended. No hepato-splenomegaly , or palpable masses. No guarding. Bowel sounds present. GENITOURINARY: Without palpable bladder distension. Palumbo catheter in place. MUSCULOSKELETAL: Extremities with gangrene, color changes, and edema as noted above.. No calf tenderness. LYMPHATICS: No palpable cervical or supraclavicular adenopathy. NEUROLOGICAL: Sleepy, but easily arousable and able to answer questions appropriately. Moves all extremities. Follows commands. PSYCHIATRIC: No obvious anxiety/depression. no apparent hallucinations or other psychotic thought process. . Diagnostic Tests Laboratory Laboratory Tests Test 10/21/16 10/21/16 10/21/16 10/21/16 03:49 04:24 09:55 10:55 White Blood Count 9.3 TH/MM3 (4.0-11.0) Red Blood Count 3.94 MIL/MM3 (4.50-5.90) Hemoglobin 10.4 GM/DL (13.0-17.0) Hematocrit 32.9 % (39.0-51.0) Mean Corpuscular Volume 83.5 FL (80.0-100.0) Mean Corpuscular Hemoglobin 26.4 PG (27.0-34.0) Mean Corpuscular Hemoglobin 31.7 % Concent (32.0-36.0) Red Cell Distribution Width 15.6 % (11.6-17.2) Platelet Count 161 TH/MM3 (150-450) Mean Platelet Volume 9.3 FL (7.0-11.0) Neutrophils (%) (Auto) 94.4 % (16.0-70.0) Lymphocytes (%) (Auto) 2.9 % (9.0-44.0) Monocytes (%) (Auto) 2.2 % (0.0-8.0) Eosinophils (%) (Auto) 0.1 % (0.0-4.0) Basophils (%) (Auto) 0.4 % (0.0-2.0) Neutrophils # (Auto) 8.8 TH/MM3 (1.8-7.7) Lymphocytes # (Auto) 0.3 TH/MM3 (1.0-4.8) Monocytes # (Auto) 0.2 TH/MM3 (0-0.9) Eosinophils # (Auto) 0.0 TH/MM3 (0-0.4) Basophils # (Auto) 0.0 TH/MM3 (0-0.2) CBC Comment DIFF FINAL Differential Comment Prothrombin Time 14.0 SEC (9.8-11.6) Prothromb Time International 1.3 RATIO Ratio Sodium Level 135 MEQ/L 135 MEQ/L (136-145) (136-145) Potassium Level 5.6 MEQ/L 5.4 MEQ/L (3.5-5.1) (3.5-5.1) Chloride Level 95 MEQ/L 94 MEQ/L (98-107) (98-107) Carbon Dioxide Level 34.2 MEQ/L 35.1 MEQ/L (21.0-32.0) (21.0-32.0) Anion Gap 6 MEQ/L (5-15) 6 MEQ/L (5-15) Blood Urea Nitrogen 58 MG/DL (7-18) 61 MG/DL (7-18) Creatinine 3.92 MG/DL 4.16 MG/DL (0.60-1.30) (0.60-1.30) Estimat Glomerular Filtration 15 ML/MIN (>89) 14 ML/MIN (>89) Rate Random Glucose 107 MG/DL 50 MG/DL (74-106) (74-106) Calcium Level 8.2 MG/DL 8.2 MG/DL (8.5-10.1) (8.5-10.1) Phosphorus Level 5.5 MG/DL (2.5-4.9) Magnesium Level 2.3 MG/DL (1.5-2.5) Total Bilirubin 0.4 MG/DL (0.2-1.0) Aspartate Amino Transf 33 U/L (15-37) (AST/SGOT) Alanine Aminotransferase 15 U/L (12-78) (ALT/SGPT) Alkaline Phosphatase 58 U/L (45-117) Total Protein 5.3 GM/DL (6.4-8.2) Albumin 2.2 GM/DL (3.4-5.0) Urine Eosinophils NONE SEEN /HPF (NONE SEEN) Urine Random Sodium 28 MEQ/L Blood Gas Puncture Site RT RADIAL Blood Gas Patient Temperature 98.6 Blood Gas HCO3 32 mmol/L (22-26) Blood Gas Base Excess 4.7 mmol/L (-2-2) Blood Gas Oxygen Saturation 84 % (90-100) Arterial Blood pH 7.23 (7.380-7.420) Arterial Blood Partial 78 mmHg (38-42) Pressure CO2 Arterial Blood Partial 58 mmHg Pressure O2 (61-120) Arterial Blood Oxygen Content 11.6 Vol % (12.0-20.0) Arterial Blood 1.5 % (0-4) Carboxyhemoglobin Arterial Blood Methemoglobin 0.9 % (0-2) Blood Gas Hemoglobin 9.7 G/DL (12.0-16.0) Oxygen Delivery Device NASAL CANNULA Blood Gas Liter Flow 3 L/M Test 10/21/16 10/21/16 10/22/16 10/22/16 12:34 14:06 04:29 10:36 Blood Gas Puncture Site LT RADIAL Blood Gas Patient Temperature 98.6 Blood Gas HCO3 30 mmol/L (22-26) Blood Gas Base Excess 4.1 mmol/L (-2-2) Blood Gas Oxygen Saturation 93 % (90-100) Arterial Blood pH 7.28 (7.380-7.420) Arterial Blood Partial 67 mmHg (38-42) Pressure CO2 Arterial Blood Partial 85 mmHg Pressure O2 (61-120) Arterial Blood Oxygen Content 13.3 Vol % (12.0-20.0) Arterial Blood 1.7 % (0-4) Carboxyhemoglobin Arterial Blood Methemoglobin 1.0 % (0-2) Blood Gas Hemoglobin 10.0 G/DL (12.0-16.0) Oxygen Delivery Device BIPAP Blood Gas Ventilator Setting [id number] Blood Gas Inspired Oxygen 60 % Sodium Level 135 MEQ/L 136 MEQ/L (136-145) (136-145) Potassium Level 5.5 MEQ/L 5.2 MEQ/L (3.5-5.1) (3.5-5.1) Chloride Level 95 MEQ/L 95 MEQ/L (98-107) (98-107) Carbon Dioxide Level 33.3 MEQ/L 31.8 MEQ/L (21.0-32.0) (21.0-32.0) Anion Gap 7 MEQ/L (5-15) 9 MEQ/L (5-15) Blood Urea Nitrogen 66 MG/DL (7-18) 58 MG/DL (7-18) Creatinine 4.33 MG/DL 3.96 MG/DL (0.60-1.30) (0.60-1.30) Estimat Glomerular Filtration 13 ML/MIN (>89) 15 ML/MIN (>89) Rate Random Glucose 81 MG/DL 94 MG/DL (74-106) (74-106) Calcium Level 8.2 MG/DL 8.1 MG/DL (8.5-10.1) (8.5-10.1) White Blood Count 9.7 TH/MM3 8.9 TH/MM3 (4.0-11.0) (4.0-11.0) Red Blood Count 3.61 MIL/MM3 3.62 MIL/MM3 (4.50-5.90) (4.50-5.90) Hemoglobin 9.7 GM/DL 9.7 GM/DL (13.0-17.0) (13.0-17.0) Hematocrit 30.0 % 29.9 % (39.0-51.0) (39.0-51.0) Mean Corpuscular Volume 83.2 FL 82.4 FL (80.0-100.0) (80.0-100.0) Mean Corpuscular Hemoglobin 27.0 PG 26.9 PG (27.0-34.0) (27.0-34.0) Mean Corpuscular Hemoglobin 32.4 % 32.6 % Concent (32.0-36.0) (32.0-36.0) Red Cell Distribution Width 15.8 % 15.5 % (11.6-17.2) (11.6-17.2) Platelet Count 149 TH/MM3 149 TH/MM3 (150-450) (150-450) Mean Platelet Volume 9.5 FL 9.3 FL (7.0-11.0) (7.0-11.0) Neutrophils (%) (Auto) 92.7 % (16.0-70.0) Lymphocytes (%) (Auto) 3.6 % (9.0-44.0) Monocytes (%) (Auto) 3.6 % (0.0-8.0) Eosinophils (%) (Auto) 0.0 % (0.0-4.0) Basophils (%) (Auto) 0.1 % (0.0-2.0) Neutrophils # (Auto) 9.0 TH/MM3 (1.8-7.7) Lymphocytes # (Auto) 0.4 TH/MM3 (1.0-4.8) Monocytes # (Auto) 0.4 TH/MM3 (0-0.9) Eosinophils # (Auto) 0.0 TH/MM3 (0-0.4) Basophils # (Auto) 0.0 TH/MM3 (0-0.2) CBC Comment DIFF FINAL Differential Comment Total Bilirubin 0.5 MG/DL (0.2-1.0) Aspartate Amino Transf 43 U/L (15-37) (AST/SGOT) Alanine Aminotransferase 18 U/L (12-78) (ALT/SGPT) Alkaline Phosphatase 51 U/L (45-117) Total Protein 5.6 GM/DL (6.4-8.2) Albumin 3.1 GM/DL (3.4-5.0) Prothrombin Time 13.7 SEC (9.8-11.6) Prothromb Time International 1.2 RATIO Ratio Activated Partial 40.2 SEC Thromboplast Time (24.3-30.1) Test 10/22/16 10/22/16 10/23/16 17:00 22:46 03:51 Activated Partial 64.8 SEC 71.1 SEC 68.1 SEC Thromboplast Time (24.3-30.1) (24.3-30.1) (24.3-30.1) White Blood Count 12.8 TH/MM3 (4.0-11.0) Red Blood Count 3.64 MIL/MM3 (4.50-5.90) Hemoglobin 9.7 GM/DL (13.0-17.0) Hematocrit 30.0 % (39.0-51.0) Mean Corpuscular Volume 82.4 FL (80.0-100.0) Mean Corpuscular Hemoglobin 26.7 PG (27.0-34.0) Mean Corpuscular Hemoglobin 32.4 % Concent (32.0-36.0) Red Cell Distribution Width 15.4 % (11.6-17.2) Platelet Count 138 TH/MM3 (150-450) Mean Platelet Volume 9.7 FL (7.0-11.0) Neutrophils (%) (Auto) 97.0 % (16.0-70.0) Lymphocytes (%) (Auto) 1.4 % (9.0-44.0) Monocytes (%) (Auto) 1.3 % (0.0-8.0) Eosinophils (%) (Auto) 0.0 % (0.0-4.0) Basophils (%) (Auto) 0.3 % (0.0-2.0) Neutrophils # (Auto) 12.5 TH/MM3 (1.8-7.7) Lymphocytes # (Auto) 0.2 TH/MM3 (1.0-4.8) Monocytes # (Auto) 0.2 TH/MM3 (0-0.9) Eosinophils # (Auto) 0.0 TH/MM3 (0-0.4) Basophils # (Auto) 0.0 TH/MM3 (0-0.2) CBC Comment DIFF FINAL Differential Comment Sodium Level 134 MEQ/L (136-145) Potassium Level 5.1 MEQ/L (3.5-5.1) Chloride Level 94 MEQ/L (98-107) Carbon Dioxide Level 31.4 MEQ/L (21.0-32.0) Anion Gap 9 MEQ/L (5-15) Blood Urea Nitrogen 76 MG/DL (7-18) Creatinine 4.91 MG/DL (0.60-1.30) Estimat Glomerular Filtration 11 ML/MIN (>89) Rate Random Glucose 131 MG/DL (74-106) Calcium Level 8.1 MG/DL (8.5-10.1) Phosphorus Level 6.2 MG/DL (2.5-4.9) Magnesium Level 2.4 MG/DL (1.5-2.5) Total Bilirubin 0.4 MG/DL (0.2-1.0) Aspartate Amino Transf 44 U/L (15-37) (AST/SGOT) Alanine Aminotransferase 21 U/L (12-78) (ALT/SGPT) Alkaline Phosphatase 60 U/L (45-117) Total Protein 5.7 GM/DL (6.4-8.2) Albumin 2.8 GM/DL (3.4-5.0) . Result Diagram: 10/23/16 0351 10/23/16 0351 Imaging Last Impressions Chest X-Ray 10/21/16 0000 Signed Impressions: Service Date/Time: Friday, October 21, 2016 15:16 - CONCLUSION: 1. There is near-complete opacification of the left hemithorax compared to the prior study. 2. Persistent right lower lung infiltrate 3. Pulmonary venous congestion. Job Camarillo MD Thoracentesis 10/20/16 0000 Signed Impressions: Service Date/Time: Thursday, October 20, 2016 16:00 - CONCLUSION: Uncomplicated CT-guided thoracentesis. Significant improvement in the left lung following thoracentesis. Milton Farfan MD FACR Renal Ultrasound 10/20/16 0000 Signed Impressions: Service Date/Time: Thursday, October 20, 2016 16:52 - CONCLUSION: 1. Slight increase in echogenicity of the kidneys which can suggest some degree of medical renal disease. 2. Right pleural effusion. Willis Garcia MD Head CT 10/18/16 0000 Signed Impressions: Service Date/Time: Tuesday, October 18, 2016 13:56 - CONCLUSION: 1. No acute intracranial abnormality is identified. 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 Profunda branches reconstitute. Left superficial femoral artery is proximally occluded and severely diseased following reconstitution. No healthy appearing potential target vessels above the calf on the left. Less severe runoff changes on the right as described. Severe visceral arterial disease Large pleural effusions. Sizable calcific thoracic disc herniation, incompletely seen Willis Chen MD Lower Extremity Ultrasound 10/13/16 0000 Signed Impressions: Service Date/Time: Thursday, October 13, 2016 08:32 - CONCLUSION: Negative for deep venous thrombosis. Milton Farfan MD FACR . Procedures * Vas-Cath placement * Hemodialysis * Left lower extremity angiogram * Thoracentesis . Patient/Family Conference Present at Family Conference: Daughter . Family Conference Time (mins): 55 Family Conference Location: Consult Room Issues Discussed: * Palliative care role, purpose, approach * Additional medical, psychosocial, and spiritual history * Patients general health, functional status, and cognitive changes in the months leading up to the current hospitalization * Family understanding of the current medical problems * Family understanding of prognosis * Patients goals of care as best understood from conversations and/or values * Current medical treatment options and benefits/burdens of those options * Likely scenarios comparing ongoing aggressive care with a transition to comfort measures only * Questions answered to the best of my ability * Palliative care contact information provided . Assessment and Plan Disease Oriented Problem List: (1) PAD (peripheral artery disease) (2) Ischemia of left lower extremity (3) COPD (chronic obstructive pulmonary disease) (4) MARLYN (acute kidney injury) (5) Non-sustained ventricular tachycardia (6) Atrial fibrillation (7) Bilateral pleural effusion (8) History of CVA (cerebrovascular accident) (9) HTN (hypertension) Symptom Scale: (1) Pain 0-10 Scale: 0 Comment: Patient denies pain at time of my visit. Has had pain in the left lower extremity. Other contributing factors to discomfort include prolonged bedbound status; vascular access catheters; Palumbo catheter. Pain currently controlled with oxycodone/acetaminophen 5-325. (2) Dyspnea 0-10 Scale: 0 Comment: Patient denies shortness of breath at rest while on nasal cannula oxygen. Dyspnea is due to a combination of underlying COPD and pleural effusions. Patient had recent thoracentesis. . (3) Fatigue 0-10 Scale: Unable to quantify Comment: Patient has been primarily bedbound since suffering his fall proximally 7 weeks ago. There is considerable deconditioning. . Pertinent Non-Medical Issues Psychosocial: Patient is but has dementia and was recently moved to a long-term care facility. Patient reportedly is estranged from his son. Patient's daughter flew in from [place] on 10/23/16. Spiritual: Reason is a [employer] but into the [employer]. 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 Legal: No known advanced directive. Patient is verbally expressed his desire to designate his daughterMelanieas his health care surrogate. Ethical issues impacting care: Patient is sleepy but appears capacitated to make his own health care decisions. Recommend that major decisions be shared with his daughter. . Important Contacts * Anitha Lloyd (daughter and health care surrogate ) [phone] . Prognosis Mr. Reid , per his daughter, have been remarkably active and vital up until about 7 weeks ago. He was a primary caregiver for his demented . 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 Since his fall he is becoming mostly bedbound. He is found to have severe peripheral arterial disease. Since his hospitalization he has had complications including nonsustained ventricular tachycardia, acute kidney injury requiring dialysis, and pleural effusions requiring thoracentesis. 2 different cardiovascular surgeons have indicated that his left lower extremity cannot be salvaged through interventional vascular procedures. They have recommended amputation. The patient has underlying COPD and atrial fibrillation requiring anticoagulation. Given the patient's hospital course to date, one might expect significant complications postoperatively should he go through with the procedure. Should he not go through with the procedure, gangrene will progress. He will essentially be bedbound. We would anticipate sepsis and pneumonia. Patient would certainly be a candidate for hospice care should he decide not to have the amputation. . Code Status: No Code Plan == CODE STATUS: No code. Will need to revisit this again with the patientm on 10/24/16 == Decision-making: Patient appears capacitated to make his own health care decisions. Recommend that major decisions be made in a shared fashion with his designated health care surrogatehis daughter Anitha. == Goals of medical treatment: The patient's daughter wanted to speak to him privately for some time regarding goals today. She would like to address these together with the patient on 10/24/16. We will continue aggressive care short of resuscitation until goals are clarified. == Pain: Most the patient's pain is in his left lower extremity and is probably due to his ischemia. Other possible sources of discomfort include his prolonged bedbound status; vascular access lines; Palumbo catheter; etc. His current analgesic regimen which is oxycodone/acetaminophen 5-325 appears to be working. No further recommendations at this time. == Dyspnea: Patient has underlying COPD and has pleural effusions requiring recent thoracentesis. Had been needing BiPAP and a nonrebreather mask. Now appears comfortable at rest with nasal cannula oxygen. Patient is currently on intravenous steroids, nebulizer treatments, Spiriva, and antibiotics. No further recommendations at this time == Fatigue: Patient has essentially been bedbound for proximally 7 weeks. Severe deconditioning has taken place. He has also been critically ill. If the patient decides against amputation, he will likely remain bedbound and fatigued. If he decided to go forward with amputation, he will need to recover from a major surgery and will have additional de-conditioning to overcome. == Palliative care will continue to follow the patient to assist with symptom management and to clarify goals of medical treatment as the clinical course evolves. . == Time Spent Total Floor Time (mins): 90 Face to Face Time (mins): 15 >50% Counseling/Coord of Care: Yes Thank you for the opportunity to participate in the care of Mr. Lang . Attestation To help prompt me to consider important information that might be impacting today's encounter and assessment, information from prior notes written by myself or my colleagues may have been "brought forward" into today's note. My signature on this note, however, is an attestation that I personally performed the exam, history, and/or decision-making noted today, and, unless otherwise indicated, the interactions with patient, family, and staff as well as the review of records all occurred today. I also attest that the listed assessment and stated plan reflect my best clinical judgment today based on the combination of historical information, prior notes, and today's exam/ interactions. When time spent is documented, it refers only to time spent today by the signer, or if indicated, combined time spent today by collaborating physician/nurse practitioner. . Santy Sommer MD Oct 23, 2016 10:02
[2016-10-23] MEDS: GENTAMICIN SULFATE (DIALYSIS USE ONLY) 20 MG/2 ML VIAL IV PRN (11:48)
--- NOTE | 2016-10-23 13:56 | PD.VS.PN ---
Subjective Subjective/Hospital Course Patient somnolent. Moved to ICU and started on HD Does not appear to be in any distress Objective Vitals/I&O Date Time Temp Pulse Resp B/P Pulse Ox O2 Delivery O2 Flow Rate FiO2 10/23/16 11:15 95 Nasal Cannula 2.00 10/23/16 10:00 63 10/23/16 08:00 59 10/23/16 08:00 98.0 59 20 113/57 95 10/23/16 07:00 95 Nasal Cannula 4.00 10/23/16 06:00 62 10/23/16 04:11 96 Nasal Cannula 4.00 10/23/16 04:00 98.6 59 22 115/57 97 10/23/16 04:00 59 10/23/16 02:00 60 10/23/16 01:31 100 50 10/23/16 00:00 99.3 60 17 98/54 98 10/23/16 00:00 60 10/22/16 22:36 95 50 10/22/16 22:00 65 10/22/16 20:28 95 4.00 10/22/16 20:00 98.0 64 22 102/54 95 10/22/16 20:00 64 10/22/16 19:00 95 Nasal Cannula 4.00 10/22/16 18:00 65 10/22/16 16:00 98.6 65 22 121/58 94 10/22/16 16:00 65 10/22/16 14:00 68 10/23/16 10/23/16 10/23/16 07:00 15:00 23:00 Intake Total 317 ml Output Total 50 ml 3000 ml Balance 267 ml -3000 ml Physical Exam L foot dry and desquamated Less erythema No odor Laboratory Laboratory Tests Test 10/22/16 10/22/16 10/23/16 17:00 22:46 03:51 Activated Partial 64.8 71.1 68.1 Thromboplast Time White Blood Count 12.8 Red Blood Count 3.64 Hemoglobin 9.7 Hematocrit 30.0 Mean Corpuscular Volume 82.4 Mean Corpuscular Hemoglobin 26.7 Mean Corpuscular Hemoglobin 32.4 Concent Red Cell Distribution Width 15.4 Platelet Count 138 Mean Platelet Volume 9.7 Neutrophils (%) (Auto) 97.0 Lymphocytes (%) (Auto) 1.4 Monocytes (%) (Auto) 1.3 Eosinophils (%) (Auto) 0.0 Basophils (%) (Auto) 0.3 Neutrophils # (Auto) 12.5 Lymphocytes # (Auto) 0.2 Monocytes # (Auto) 0.2 Eosinophils # (Auto) 0.0 Basophils # (Auto) 0.0 CBC Comment DIFF FINAL Differential Comment Sodium Level 134 Potassium Level 5.1 Chloride Level 94 Carbon Dioxide Level 31.4 Anion Gap 9 Blood Urea Nitrogen 76 Creatinine 4.91 Estimat Glomerular Filtration 11 Rate Random Glucose 131 Calcium Level 8.1 Phosphorus Level 6.2 Magnesium Level 2.4 Total Bilirubin 0.4 Aspartate Amino Transf 44 (AST/SGOT) Alanine Aminotransferase 21 (ALT/SGPT) Alkaline Phosphatase 60 Total Protein 5.7 Albumin 2.8 Assessment and Plan Plan Mr. 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 He will ultimately need a LEFT AKA. However, no pressing urgency and would like to modify/improve any risk factors possible (cardiac, pulmonary, renal). Clearly he is high risk for any procedure. Rg Oquendo MD FACS precast worker [facility] - Heart and Vascular Surgery at [facility] Rg Oquendo MD Oct 23, 2016 13:56
--- NOTE | 2016-10-23 14:36 | PD.CARD.PN ---
Subjective Subjective Remarks Patient decompensated since last evaluation. Had episode of hypercapnic respiratory failure. Had a left thoracentesis. Borderline hypotension, currently off antihypertensive therapy. Decreased renal function. Now DNR. Pending AKA Objective Vital Signs / I&O Vital Signs Date Time Temp Pulse Resp B/P Pulse Ox O2 Delivery O2 Flow Rate FiO2 10/23/16 14:00 60 10/23/16 12:00 61 10/23/16 12:00 97.7 61 20 108/53 92 10/23/16 11:15 95 Nasal Cannula 2.00 10/23/16 10:00 63 10/23/16 08:00 59 10/23/16 08:00 98.0 59 20 113/57 95 10/23/16 07:00 95 Nasal Cannula 4.00 10/23/16 06:00 62 10/23/16 04:11 96 Nasal Cannula 4.00 10/23/16 04:00 98.6 59 22 115/57 97 10/23/16 04:00 59 10/23/16 02:00 60 10/23/16 01:31 100 50 10/23/16 00:00 99.3 60 17 98/54 98 10/23/16 00:00 60 10/22/16 22:36 95 50 10/22/16 22:00 65 10/22/16 20:28 95 4.00 10/22/16 20:00 98.0 64 22 102/54 95 10/22/16 20:00 64 10/22/16 19:00 95 Nasal Cannula 4.00 10/22/16 18:00 65 10/22/16 16:00 98.6 65 22 121/58 94 10/22/16 16:00 65 I/O 10/22/16 10/22/16 10/22/16 10/23/16 10/23/16 10/23/16 07:00 15:00 23:00 07:00 15:00 23:00 Intake Total 240 ml 741 ml 182 ml 317 ml 78 ml Output Total 20 ml 75 ml 25 ml 50 ml 3045 ml Balance 220 ml 666 ml 157 ml 267 ml -2967 ml Intake Oral 240 ml 720 ml 0 ml 240 ml IV Total 0 ml 21 ml 182 ml 77 ml 78 ml Output Urine Total 20 ml 75 ml 25 ml 50 ml 45 ml Hemodialysis 3000 ml # Bowel Movements 0 0 0 0 Physical Exam GENERAL: Elderly male, arouses to load voice SKIN: Warm and dry. HEAD: Normocephalic. EYES: No scleral icterus. No injection or drainage. NECK: Supple, trachea midline. CARDIOVASCULAR: Bradycardia, irregularly irregular RESPIRATORY: Deminished breath sounds, No accessory muscle use. Nasal cannula GASTROINTESTINAL: Abdomen soft, non-tender, nondistended. MUSCULOSKELETAL: Ischemic left lower leg BACK: Nontender without obvious deformity. Laboratory Laboratory Tests Test 10/22/16 10/22/16 10/23/16 17:00 22:46 03:51 Activated Partial 64.8 SEC 71.1 SEC 68.1 SEC Thromboplast Time White Blood Count 12.8 TH/MM3 Red Blood Count 3.64 MIL/MM3 Hemoglobin 9.7 GM/DL Hematocrit 30.0 % Mean Corpuscular Volume 82.4 FL Mean Corpuscular Hemoglobin 26.7 PG Mean Corpuscular Hemoglobin 32.4 % Concent Red Cell Distribution Width 15.4 % Platelet Count 138 TH/MM3 Mean Platelet Volume 9.7 FL Neutrophils (%) (Auto) 97.0 % Lymphocytes (%) (Auto) 1.4 % Monocytes (%) (Auto) 1.3 % Eosinophils (%) (Auto) 0.0 % Basophils (%) (Auto) 0.3 % Neutrophils # (Auto) 12.5 TH/MM3 Lymphocytes # (Auto) 0.2 TH/MM3 Monocytes # (Auto) 0.2 TH/MM3 Eosinophils # (Auto) 0.0 TH/MM3 Basophils # (Auto) 0.0 TH/MM3 CBC Comment DIFF FINAL Differential Comment Sodium Level 134 MEQ/L Potassium Level 5.1 MEQ/L Chloride Level 94 MEQ/L Carbon Dioxide Level 31.4 MEQ/L Anion Gap 9 MEQ/L Blood Urea Nitrogen 76 MG/DL Creatinine 4.91 MG/DL Estimat Glomerular Filtration 11 ML/MIN Rate Random Glucose 131 MG/DL Calcium Level 8.1 MG/DL Phosphorus Level 6.2 MG/DL Magnesium Level 2.4 MG/DL Total Bilirubin 0.4 MG/DL Aspartate Amino Transf 44 U/L (AST/SGOT) Alanine Aminotransferase 21 U/L (ALT/SGPT) Alkaline Phosphatase 60 U/L Total Protein 5.7 GM/DL Albumin 2.8 GM/DL Imaging Last 72 hours Impressions Chest X-Ray 10/21/16 0000 Signed Impressions: Service Date/Time: Friday, October 21, 2016 15:16 - CONCLUSION: 1. There is near-complete opacification of the left hemithorax compared to the prior study. 2. Persistent right lower lung infiltrate 3. Pulmonary venous congestion. Job Camarillo MD Chest X-Ray 10/21/16 0000 Signed Impressions: Service Date/Time: Friday, October 21, 2016 11:19 - CONCLUSION: Stable cardiomegaly with left basilar atelectasis. Improved aeration of the right hemithorax. Magalie Colón MD Chest X-Ray 10/20/161999 Signed Impressions: Service Date/Time: Friday, October 21, 2016 01:16 - CONCLUSION: Improved aeration in the left lung following thoracentesis. There continues to be suspected CHF. Willis Garcia MD Assessment and Plan Assessment and Plan ASSESSMENT 1. PVD, Ischemic LLE with gangrenous 2nd, 3rd toes. AKA recommended 2. SOB, large pleural effusion s/p thoracentesis 3. Acute Renal Failure 4. Asymptomatic Non-sustained V-tach, EF 35-40% 5. Atrial Fibrillation on Coumadin prior to admission. Coumadin on hold 6. Mitral Regurgitation 7. Tricuspid Regurgitation 8. HTN- BP now low 9. DNR PLAN: Pending left AKA. On heparin drip. Off coumadin. Continue to hold antihypertensive therapy due to low BP Patient has history of NSVT. Assessment and plan discussed with Dalila Chou Oct 23, 2016 14:36
--- NOTE | 2016-10-23 15:28 | HHI.NPPN ---
Subjective Additional Remarks Patient seen in AM, during HD, sleepy but arousable. Review of Systems General Constitutional: Fatigue Respiratory Lungs: SOB Cardiovascular Cardiac: RUSSELL Objective Data Data 10/22/16 10/23/16 19:00 07:00 Intake Total 741 ml 499 ml Output Total 75 ml 75 ml Balance 666 ml 424 ml Intake Oral 720 ml 240 ml IV Total 21 ml 259 ml Output Urine Total 75 ml 75 ml # Bowel Movements 0 0 Vital Signs Date Time Temp Pulse Resp B/P Pulse Ox O2 Delivery O2 Flow Rate FiO2 10/23/16 14:00 60 10/23/16 12:00 61 10/23/16 12:00 97.7 61 20 108/53 92 10/23/16 11:15 95 Nasal Cannula 2.00 10/23/16 10:00 63 10/23/16 08:00 59 10/23/16 08:00 98.0 59 20 113/57 95 10/23/16 07:00 95 Nasal Cannula 4.00 10/23/16 06:00 62 10/23/16 04:11 96 Nasal Cannula 4.00 10/23/16 04:00 98.6 59 22 115/57 97 10/23/16 04:00 59 10/23/16 02:00 60 10/23/16 01:31 100 50 10/23/16 00:00 99.3 60 17 98/54 98 10/23/16 00:00 60 10/22/16 22:36 95 50 10/22/16 22:00 65 10/22/16 20:28 95 4.00 10/22/16 20:00 98.0 64 22 102/54 95 10/22/16 20:00 64 10/22/16 19:00 95 Nasal Cannula 4.00 10/22/16 18:00 65 10/22/16 16:00 98.6 65 22 121/58 94 10/22/16 16:00 65 -: 10/23/16 0351 10/23/16 0351 Physical Exam General Appearance: No Acute Distress, Comfortable Throat Throat Exam: Oral Mucosa [place] & Moist Neck Neck Exam: Neck Supple Pulmonary Resp Exam: Diminished Breath Sounds Cardiology CV Exam: Regular, Normal Sinus Rhythm Gastrointestinal/Abdomen GI Exam: Soft, Non-Tender, Bowel Sounds Present Extremeties Extremities Exam: No Edema (Left foot andf lower leg, with echymosis and discoloration.) Neurologic Neuro Exam: Alert, Awake Assessment/Plan Problem List: (1) MARLYN (acute kidney injury) Plan: MARLYN on CKD, with baseline creatinine 1.4-1.8 MARLYN / ATN likely secondary to hypotension and contrast nephropathy with gangrene of the left leg / sepsis. Urine out put is low. Started on HD from SAT. Remove 3 liters. Avoid Nephrotoxins. Follow urine out put and BMP. HD as needed. (2) PAD (peripheral artery disease) Plan: Recent contrast exposure. Planned amputation when stable, possibly this week. Continue to follow with vascular. (3) COPD (chronic obstructive pulmonary disease) Plan: Off Bipap now, after 3L UF with HD Continue to monitor (4) HTN (hypertension) Plan: BP stable, hypotensive yesterday after morphine - continue to monitor. (5) History of CVA (cerebrovascular accident) (6) Bilateral pleural effusion Plan: s/p 2 L throacentesis Sunday. Further UF with HD tomorrow as tolerated (7) Hyperkalemia Plan: 2K bath with HD yesterday. Continue to monitor, HD again tomorrow Problem Qualifiers (1) COPD (chronic obstructive pulmonary disease): Qualified Code: J42 - Chronic bronchitis, unspecified chronic bronchitis type (2) HTN (hypertension): Qualified Code: I10 - Essential hypertension Alma Bhandari MD Oct 23, 2016 15:28
[2016-10-23] MEDS: oxyCODONE/ACETAMINOPHEN 5 MG/325 MG TAB PO PRN ×2 (16:00→22:02)
--- NOTE | 2016-10-23 17:59 | RADRPT ---
EXAM DATE/TIME: 10/20/2016 16:00 INDICATIONS : Left pleural effusion. DEVICE(S): 1.) 6 Fr [id number] FLUID: Total volume of 1300 cc of clear, yellow fluid was removed. Fluid was discarded. MEDICAL HISTORY : Cardiovascular disease. Chronic obstructive pulmonary disease. Hypertension. SURGICAL HISTORY : None. ENCOUNTER: Initial ACUITY: 1 day PAIN SCORE: 0/10 LOCATION: Left chest PROCEDURE: 1. CT guided left thoracentesis. 3. EKG and oximetry remained stable throughout the procedure. The site was prepped in sterile fashion. Full sterile technique was used, including cap, mask, steri le gloves and gown and a large sterile sheet. Hand hygiene and 2% chlorhexidine and/or betadine/alco hol prep was utilized per protocol for cutaneous antisepsis. The skin and subcutaneous tissues were infiltrated with local anesthetic solution. Using automated exposure control and adjustment of the mA and/or kV according to patient size, radiation dose was kept as low as reasonably achievable to obta in optimal diagnostic quality images. With the patient supine on the CT table, type soldering machine tender images were obtained through the chest demonstrating t he left sided pleural effusion. Dermatotomy was made and the prescribed catheter was advanced into t he pleural fluid. The pleural fluid as above was removed from the hemithorax. Post procedural scan show reduction in the amount of fluid with no evidence of pneumothorax. The patient tolerated the procedure well and there were no complications. EKG and oximetry remained s table throughout the procedure. The patient was sent to recovery in stable condition. CONCLUSION: Uncomplicated CT-guided thoracentesis. Significant improvement in the left lung following thoracentesis. Milton Farfan MD FACR on October 23, 2016 at 17:56 Board Certified Radiologist. This report was verified electronically.
--- NOTE | 2016-10-23 18:11 | HHI.PR ---
Subjective Remarks Daughter at bedside as per daughter patient has been sleepy but is alert when he wakes up denies cp/sob afebrile good o2 sat on 2 liters nasal canula Objective Vitals Vital Signs Date Time Temp Pulse Resp B/P Pulse Ox O2 Delivery O2 Flow Rate FiO2 10/23/16 16:00 62 10/23/16 16:00 98.6 62 24 115/61 98 10/23/16 14:00 60 10/23/16 12:00 61 10/23/16 12:00 97.7 61 20 108/53 92 10/23/16 11:15 95 Nasal Cannula 2.00 10/23/16 10:00 63 10/23/16 08:00 59 10/23/16 08:00 98.0 59 20 113/57 95 10/23/16 07:00 95 Nasal Cannula 4.00 10/23/16 06:00 62 10/23/16 04:11 96 Nasal Cannula 4.00 10/23/16 04:00 98.6 59 22 115/57 97 10/23/16 04:00 59 10/23/16 02:00 60 10/23/16 01:31 100 50 10/23/16 00:00 99.3 60 17 98/54 98 10/23/16 00:00 60 10/22/16 22:36 95 50 10/22/16 22:00 65 10/22/16 20:28 95 4.00 10/22/16 20:00 98.0 64 22 102/54 95 10/22/16 20:00 64 10/22/16 19:00 95 Nasal Cannula 4.00 10/22/16 18:00 65 I/O 10/22/16 10/22/16 10/22/16 10/23/16 10/23/16 10/23/16 07:00 15:00 23:00 07:00 15:00 23:00 Intake Total 240 ml 741 ml 182 ml 317 ml 78 ml Output Total 20 ml 75 ml 25 ml 50 ml 3045 ml Balance 220 ml 666 ml 157 ml 267 ml -2967 ml Intake Oral 240 ml 720 ml 0 ml 240 ml IV Total 0 ml 21 ml 182 ml 77 ml 78 ml Output Urine Total 20 ml 75 ml 25 ml 50 ml 45 ml Hemodialysis 3000 ml # Bowel Movements 0 0 0 0 Result Diagram: 10/23/16 0351 10/23/16 0351 Imaging Last Impressions Chest X-Ray 10/21/16 0000 Signed Impressions: Service Date/Time: Friday, October 21, 2016 15:16 - CONCLUSION: 1. There is near-complete opacification of the left hemithorax compared to the prior study. 2. Persistent right lower lung infiltrate 3. Pulmonary venous congestion. Job Camarillo MD Renal Ultrasound 10/20/16 0000 Signed Impressions: Service Date/Time: Thursday, October 20, 2016 16:52 - CONCLUSION: 1. Slight increase in echogenicity of the kidneys which can suggest some degree of medical renal disease. 2. Right pleural effusion. Willis Garcia MD Head CT 10/18/16 0000 Signed Impressions: Service Date/Time: Tuesday, October 18, 2016 13:56 - CONCLUSION: 1. No acute intracranial abnormality is identified. 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 Profunda branches reconstitute. Left superficial femoral artery is proximally occluded and severely diseased following reconstitution. No healthy appearing potential target vessels above the calf on the left. Less severe runoff changes on the right as described. Severe visceral arterial disease Large pleural effusions. Sizable calcific thoracic disc herniation, incompletely seen Willis Chen MD Lower Extremity Ultrasound 10/13/16 0000 Signed Impressions: Service Date/Time: Thursday, October 13, 2016 08:32 - CONCLUSION: Negative for deep venous thrombosis. Milton Farfan MD FACR Objective Remarks GENERAL: This is a well-nourished, well-developed patient, in mild respiratory distress. CARDIOVASCULAR: Regular rate and regular rhythm without murmurs, gallops, or rubs. RESPIRATORY: Decreased breath sounds on left lung field. Right lung field shows expiratory wheezing. No crackles or rhonchi auscultated. GASTROINTESTINAL: Abdomen soft, non-tender, nondistended. Normal, active bowel sounds MUSCULOSKELETAL: Left leg shows necrotic second and third toes. The left foot has a purple and mottled discoloration. Pulses are not palpable in the left leg. The extremity is cold to touch. NEURO: lethargic. Does not follow commands. Procedures none Medications and IVs Current Medications Medications (Trade) Dose Ordered Sig/Jennifer Route Start Time Stop Time Status Last Admin (NS Flush) 2 ml UNSCH PRN IV FLUSH 10/12/16 21:45 (NS Flush) 2 ml BID IV FLUSH 10/13/16 09:00 10/23/16 08:43 (Narcan Inj) 0.4 mg UNSCH PRN IV 10/12/16 21:45 10/21/16 11:35 (Xanax) 0.5 mg DAILY PO 10/13/16 09:00 10/23/16 08:42 (Procardia Xl) 60 mg BID PO 10/13/16 09:00 Hold 10/20/16 08:34 (Spiriva Inh) 18 mcg DAILY INH 10/13/16 09:00 10/23/16 08:43 Pravastatin Sodium 20 mg 20 mg DAILY PO 10/13/16 09:00 10/23/16 08:42 (Levaquin 750 Mg Premix Inj) 150 ml @ 100 mls/hr Q48H IV 10/12/16 23:00 10/22/16 21:08 (Lopressor) 12.5 mg Q12HR PO 10/15/16 11:00 Hold 10/20/16 08:34 (Pill Splitter) 1 ea UNSCH PRN OTHER 10/15/16 10:15 10/16/16 09:21 (Atropine Inj) 0.5 mg Q5M PRN IV PUSH 10/20/16 18:00 Methylprednisolone Sodium Succinate 60 mg 60 mg Q6HR IV PUSH 10/21/16 18:00 10/23/16 17:24 (NS 1000 ml Inj) 1,000 ml @ 0 mls/hr Q0M PRN IV 10/21/16 11:55 10/21/16 16:12 Heparin Sodium (Porcine) 8000 units 8,000 units UNSCH PRN IVF 10/21/16 12:00 10/23/16 11:48 Sodium Chloride 1,000 ml @ 200 mls/hr Q5H PRN IV 10/21/16 11:55 (NS 1000 ml Inj) 1,000 ml @ 0 mls/hr Q0M PRN IV 10/21/16 11:55 (Mannitol Inj) 12.5 gm UNSCH PRN IV 10/21/16 12:00 10/21/16 16:12 (Albumin 25% Inj) 25 gm UNSCH PRN IV 10/21/16 12:00 10/21/16 16:11 (NS Flush) 5 ml UNSCH PRN IV FLUSH 10/21/16 12:00 (Heparin Inj) UNSCH PRN .XX 10/21/16 12:00 10/21/16 16:11 (Gentamicin (Dialysis) Inj) 20 mg UNSCH PRN IV 10/21/16 12:00 10/23/16 11:48 (Zofran Inj) 4 mg UNSCH PRN IV 10/21/16 12:00 (Tylenol) 650 mg UNSCH PRN PO 10/21/16 12:00 10/22/16 02:26 (Benadryl) 25 mg UNSCH PRN PO 10/21/16 12:00 (Nitrostat Sl) 0.4 mg UNSCH PRN SL 10/21/16 12:00 (Catapres) 0.1 mg UNSCH PRN PO 10/21/16 12:00 Gelatin 1 foam 1 foam UNSCH PRN TOP 10/21/16 12:00 (Heparin-D5W Inj) 250 ml @ 0 mls/hr TITRATE IV 10/22/16 10:00 10/23/16 09:21 (Percocet 5-325 Mg) 1 tab Q4H PRN PO 10/22/16 10:00 10/23/16 16:00 (Percocet 5-325 Mg) 2 tab Q6H PRN PO 10/22/16 10:00 Urinary Catheter: Yes Assessment to: Continue Palumbo insert reason: Measure Accurate Output Vascular Central Line Catheter: Yes Assessment to: Continue Date of Insertion: Oct 21, 2016 Line: Central Venous Catheter Reason for Continuation hemodialysis A/P Problem List: (1) Ischemia of left lower extremity ICD Code: I99.8 Status: Acute (2) MARLYN (acute kidney injury) ICD Code: N17.9 Status: Acute (3) Non-sustained ventricular tachycardia ICD Code: I47.2 Status: Acute (4) COPD (chronic obstructive pulmonary disease) ICD Code: J44.9 Status: Chronic (5) History of CVA (cerebrovascular accident) ICD Code: Z86.73 Status: Chronic (6) HTN (hypertension) ICD Code: I10 Status: Chronic (7) Atrial fibrillation ICD Code: I48.91 Status: Acute (8) Bilateral pleural effusion ICD Code: J90 Status: Acute (9) Acute hypoxemic respiratory failure ICD Code: J96.01 Status: Acute (10) Subtherapeutic international normalized ratio (INR) ICD Code: R79.1 Status: Acute (11) DNR (do not resuscitate) discussion ICD Code: Z71.89 Status: Acute (12) Hyperkalemia ICD Code: E87.5 Status: Acute (13) Hypoglycemia ICD Code: E16.2 Status: Acute (14) Encephalopathy ICD Code: G93.40 Status: Acute Plan: Likely combination of metabolic and toxic, due to sepsis and to opiate medications. As per RN report the patient gets very sleepy after getting IV or oral opiates. I will DC Percocet and Rx tramadol. Assessment and Plan (1) Ischemia of left lower extremity Plan: Patient was admitted to the medical floor and restless surgery consulted. The patient underwent left lower extremity angiogram with findings described as severe inflow and outflow disease. Vascular surgery recommends CTA A/P 2 toes, very likely to meet major amputation. Consult for second opinion has been placed by vascular surgery. 10/19 the patient is status post CTA with runoff which showed aorto iliac occlusion. Left common femoral arteries occlude it. The left superficial femoral arteries proximally included and severely diseased following with constitution. No healthy-appearing potential target vessel above the calf on the left. Severe visceral arterial disease large pleural effusions. Vascular surgery recommends amputation. Second opinion consult was placed. Patient was evaluated by other vascular surgeon who confirmed the need for AKA. (2) MARLYN (acute kidney injury) Plan: Initially likely prerenal azotemia . Patient was initially trending down with IV fluids. After CTA the patient's creatinine started to trend up and to the patient became oliguric. The patient's were held due to fluid overload and large pleural effusion which also breath and acute respiratory failure.. At that point nephrology who were following the patient start the patient on hemodialysis. At this point likely ATN likely secondary to hypotension and contrast nephropathy with gangrene of the left leg / sepsis. 10/23 patient is status post hemodialysis today. Continue to follow-up nephrology recommendations. Avoid nephrotoxins, continue to monitor BUN/ creatinine, continue to monitor strict I's and O's. Continue hemodialysis as per nephrology recommendations. (3) Non-sustained ventricular tachycardia Plan: Echocardiogram showed EF of 35%. The patient started on metoprolol and is being monitored on telemetry. Cardiology consultation appreciated. Patient borderline hypotensive, pale shelly was held and blood pressure improved.. (4) COPD (chronic obstructive pulmonary disease) Plan: Patient is oxygen dependent. Continue Spiriva with neck treatments. Patient with mild COPD exacerbation which was treated with IV supplemental 125 mg IV once with good response and IV Solumedrol 60 mg IV Q 6 hrs. Taper steroids - decrease Solumedrol IV to 40 mg IV Q 8 hrs. (5) History of CVA (cerebrovascular accident) Plan: Continue statin, patient previously on Coumadin on hold now for planned procedure. INR 2.3, continue to monitor PT/INR and start heparin drip once INR falls below 2. (6) HTN (hypertension) Plan: Continue Procardia and metoprolol. BP seems to be stable. Continue to monitor vital signs. 10/20 patient now borderline hypotensive. Hold Bacardi and metoprolol. 10/21 Patient's blood pressure transiently improved last night but in the 90's systolic overnight. 1 amp of 25% of albumin ordered. 10/23 Bp stable continue to monitor bp. (7) Atrial fibrillation Plan: EKG reviewed by me showed atrial flutter with a ventricular rate of 62 bpm. Atrial fibrillation/atrial flutter is rate controlled, continue beta shelly which has been started by cardiology. Echocardiogram showed a systolic function moderately reduced with an EF of 35-40 %. Diffuse hypokinesis. Trace aortic regurgitation. Mild to moderate mitral valve regurgitation. Moderate tricuspid regurgitation. Cardiology consulted, appreciate recommendations. INR is therapeutic, I will give vitamin K to try to bring the INR down so that the patient could have drainage of the pleural effusion. Continue to monitor PT /INR daily. Will start bridge to heparin after I talk to IR regarding thoracentesis. 10/21 INR responded to vitamin K administration. INR subtherapeutic. 10/22 I will start the patient on heparin gtt. 10/23 continue heparin gtt. (8) Bilateral pleural effusion Plan: Recent status post ultrasound-guided drainage of the left pleural effusion. Repeat chest x-ray after drainage showed improvement of aeration Patient has a large left pleural effusion and a moderate right pleural effusion. As seen on CTA of the aorta with runoff. I will order a chest x-ray. Appreciate recommendations. Patient is status post drainage of left pleural effusion. Repeat chest x-ray after drainage showed improved aeration in the left lung following thoracentesis. (9) Acute hypercarbic hypoxemic respiratory failure Plan: Due to large pleural effusions. Patient desated into the high 70s yesterday. Status post drainage of left pleural effusion. 10/21 Patient was administered 12 mg of IV morphine overnight for pain and agitation. Patient today lethargic. ABG was obtained which showed a pH of 7.23 , PCO2 78.2 [address] the patient on BiPAP 04/19. Case discussed with Dr. Pereira who is covering for pulmonary. A repeat ABG will be done after 1 hour of the patient being on BiPAP. Cafeteria Attendant consulted for placement of vas cath. Discussed the case with Dr Sarabia and she told me the patient could remain under my care. 10/22 Respiratory failure much improved patient is off bipap and non rebreather mask and now is on nasal canula. Continue to monitor respiratory status and continue with supplemental O2 to keep o2 sat < 92%. Palliative care consulted, appreciate recommendations. Appreciate Dr. Aviles's visit and clarification with power of trademark attorney status. Apparently the patient has not kept in contact with his son. And as per conversations with the daughter and reviewing Dr. Aviles's records, the patient's son who is the power of trademark attorney has moved out of the area and cannot be found. Apparently the patient's daughter was working on changing the POA of trademark attorney papers, however it is uncertain if this was completed. The patient's daughter will be coming to [place] and be here tomorrow morning. Case was discussed with the daughter who wants hospice to be consulted. Discharge Planning She again repeats that the patient should be DO NOT RESUSCITATE/DO NOT INTUBATE. DC Pending hospice consult. Problem Qualifiers (1) COPD (chronic obstructive pulmonary disease): Qualified Code: J42 - Chronic bronchitis, unspecified chronic bronchitis type (2) HTN (hypertension): Qualified Code: I10 - Essential hypertension (3) Atrial fibrillation: Qualified Code: I48.2 - Chronic atrial fibrillation Yfn Hernandez MD Oct 23, 2016 18:11
--- NOTE | 2016-10-23 19:47 | HHI.PR ---
Subjective Remarks Used CPAP last night Now on 4LNC Feels better Denies SOB Appetite improving daughter at BS Objective Vital Signs Vital Signs Date Time Temp Pulse Resp B/P Pulse Ox O2 Delivery O2 Flow Rate FiO2 10/23/16 18:00 68 10/23/16 16:00 62 10/23/16 16:00 98.6 62 24 115/61 98 10/23/16 14:00 60 10/23/16 12:00 61 10/23/16 12:00 97.7 61 20 108/53 92 10/23/16 11:15 95 Nasal Cannula 2.00 10/23/16 10:00 63 10/23/16 08:00 59 10/23/16 08:00 98.0 59 20 113/57 95 10/23/16 07:00 95 Nasal Cannula 4.00 10/23/16 06:00 62 10/23/16 04:11 96 Nasal Cannula 4.00 10/23/16 04:00 98.6 59 22 115/57 97 10/23/16 04:00 59 10/23/16 02:00 60 10/23/16 01:31 100 50 10/23/16 00:00 99.3 60 17 98/54 98 10/23/16 00:00 60 10/22/16 22:36 95 50 10/22/16 22:00 65 10/22/16 20:28 95 4.00 10/22/16 20:00 98.0 64 22 102/54 95 10/22/16 20:00 64 I/O 10/22/16 10/22/16 10/22/16 10/23/16 10/23/16 10/23/16 07:00 15:00 23:00 07:00 15:00 23:00 Intake Total 240 ml 741 ml 182 ml 317 ml 78 ml Output Total 20 ml 75 ml 25 ml 50 ml 3045 ml Balance 220 ml 666 ml 157 ml 267 ml -2967 ml Intake Oral 240 ml 720 ml 0 ml 240 ml IV Total 0 ml 21 ml 182 ml 77 ml 78 ml Output Urine Total 20 ml 75 ml 25 ml 50 ml 45 ml Hemodialysis 3000 ml # Bowel Movements 0 0 0 0 Result Diagram: 10/23/16 0351 10/23/16 0351 Objective Remarks GENERAL: Patient is 81yo lethargic and drowsy now on BIPAP SKIN: Warm and dry. HEAD: Normocephalic. EYES: No scleral icterus. No injection or drainage. NECK: Supple, trachea midline. No JVD or lymphadenopathy. CARDIOVASCULAR: Regular rate and rhythm without murmurs, gallops, or rubs. RESPIRATORY: Breath sounds equal bilaterally. No accessory muscle use. GASTROINTESTINAL: Abdomen soft, non-tender, nondistended. MUSCULOSKELETAL: No cyanosis, ischemic LLE. Neuro: Lethargic. A/P Assessment and Plan 1)Acute hypercapnic resp acidosis--improved 2)Left pleural effusion, s/p Thoracentesis with removal 2200ml 3)COPD 4)CHF/Cardiomyopathy 5)PVD with ischemic LLE 6)ARF 7)[id number] PLAN: Continue with oxygen keep sat >92% Bronchodilators, place on solumederol 50mg IV Q8, on Spiriv Monitor renal function, I/O's, avoid nephrotoxins. Renal is following. Patient might need HD. Continue with abx ( Levaquin)monitor for signs of infections ( Fever, WBC). NOHEMI pt and daughter at Nathaniel Bear MD Oct 23, 2016 19:46
[2016-10-24] VITALS (9 sets, daily range): BP systolic 107–121; BP diastolic 54–68; PULSE 61–70; RESP 20–26; TEMP 98–98.5; O2SAT 93–97
[2016-10-24] MEDS ORDERED: methylPREDNISolone SOD SUCC 40 MG/1 ML VIAL IV PUSH SCH (01:00)
[2016-10-24] MEDS: RESP: ALBUTEROL 2.5 MG/IPRATROPIUM 0.5 MG NEB (SCH) NEB ×3 (03:27→11:15)
[2016-10-24] MEDS: HEPARIN-D5W INJ 250 ML IV SCH (06:51)
[2016-10-24] MEDS: oxyCODONE/ACETAMINOPHEN 5 MG/325 MG TAB PO PRN (06:51)
[2016-10-24 06:55] LABS: AUTOMATED NEUTROPHIL # 12.1 TH/MM3 (1.8-7.7); BASOPHIL % 0.2 % (0.0-2.0); HEMATOCRIT 33.5 % (39.0-51.0); HEMO FLAGS DIFF FINAL; LYMPH % 2.2 % (9.0-44.0); LYMPHOCYTE # 0.3 TH/MM3 (1.0-4.8); MEAN CELL VOLUME 83.4 FL (80.0-100.0); MEAN CORPUSCULAR HEMOGLOBIN 25.9 PG (27.0-34.0); MONO % 3.1 % (0.0-8.0); NEUT % 94.5 % (16.0-70.0); PLATELET COUNT 122 TH/MM3 (150-450); RED BLOOD COUNT 4.02 MIL/MM3 (4.50-5.90); RED CELL DISTRIBUTION WIDTH 15.7 % (11.6-17.2); WHITE BLOOD COUNT 12.8 TH/MM3 (4.0-11.0)
[2016-10-24 07:10] LABS: APTT (PATIENT) 76.2 SEC (24.3-30.1)
[2016-10-24 07:22] LABS: ALKALINE PHOSPHATASE 54 U/L (45-117); ALT (GPT) 24 U/L (12-78); ANION GAP 8 MEQ/L (5-15); AST (GOT) 39 U/L (15-37); BICARBONATE 33.7 MEQ/L (21.0-32.0); BLOOD UREA NITROGEN 63 MG/DL (7-18); CHLORIDE 95 MEQ/L (98-107); GLOMERULAR FILTRATION RATE 14 ML/MIN (>89); POTASSIUM 4.7 MEQ/L (3.5-5.1); SODIUM (NA) 137 MEQ/L (136-145); TOTAL BILIRUBIN ADULT 0.4 MG/DL (0.2-1.0)
[2016-10-24] MEDS: PRAVASTATIN SOD 20 MG TAB PO SCH (08:34)
[2016-10-24] MEDS: ALPRAZolam 0.5 MG TAB PO SCH (08:34)
[2016-10-24] MEDS: SODIUM CHLORIDE 0.9% FLUSH 10 ML FLUSH IV FLUSH SCH (08:35)
--- NOTE | 2016-10-24 10:49 | HHI.HCPN ---
Reason for visit a. To assist with evaluation and management of symptoms including: dyspnea ; pain b. To assist medical decision maker(s) with: better understanding of current medical conditions; weighing benefits/burdens of medical treatment options; making medical treatment decisions. . Subjective/Interval History Mr. Reid is much more awake and alert this AM. He is answering questions appropriately. He cannot quantify pain. He reported some significant pain in his left foot and leg. He has just received some PO oxycodone / acetaminophen, but ti has not had long enough to work. He has only been requiring 1-3 doses of opioid analgesica per day. Mr. Reid denies dyspnea. He had to be placed on BiPAP during the evening. He does not like that. He is not back on nasal cannula 02 and the breathing is comfortable. Daughter is at bedside. Daughter and patient have spoken earlier and apparently have also spoken with nursing staff and other medical team members. Mr. Reid and his daughter confirm that they do NOT want amputation or ongoing hemodialysis. Mr. Reid wants comfort measures only. He and his daughter understand that may come soon. Hospice services have been offered and they have asked for a hospice consult which has been ordered. Patient is hoping he can go home. Patient and daughter have just heard that the patient's , currently at [facility], has suffered a likely KS and is being brought to the hospital as we speak. . Family/friend interactions See above . . Advance Directives Living Will: Never completed Health Care Surrogate: Copy in medical record Durable Power of Panel Assembler: Never completed Advance Directive Specifics Date completed: Daughter does not know if there is a prior completed advanced directive. She does not have a copy. . Health Care Surrogate(s): The patient was awake and alert enough to answer questions appropriately this afternoon. 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 I asked him in front of his nursePattywho he would want to make his own health care decisions should he become unable to do so. He answered that he would want his daughterJavon serve in this capacity. He repeated this a second time. I then asked him if he would want his son Lefty to also serve in this capacity. He replied no. The patient was able to sign an "X" to a health care surrogate form which was then witnessed by myself and the nurse. The patient's designation of his daughter is also in accord with what he had told his primary care physicianDr. Aviles. . Documented care wishes: No written documentation of health care wishes/preferences.. Significant change in goals: Patient has told daughter and myself that he wants to forego further aggressive care. He does not want an amputation. He wants to go home even if he has to stop dialysis. . Objective Vital Signs Date Time Temp Pulse Resp B/P Pulse Ox O2 Delivery O2 Flow Rate FiO2 10/24/16 10:00 70 10/24/16 08:54 93 Nasal Cannula 3.00 10/24/16 08:00 95 Bi-Pap 45 10/24/16 08:00 68 10/24/16 06:00 61 10/24/16 04:20 97 40 10/24/16 04:00 98.0 67 24 117/58 96 10/24/16 04:00 69 10/24/16 04:00 66 26 107/54 96 10/24/16 02:00 62 10/24/16 01:23 95 40 10/24/16 00:00 98.5 66 20 121/56 95 10/24/16 00:00 66 10/23/16 22:28 96 40 10/23/16 22:00 66 10/23/16 20:09 95 40 10/23/16 20:00 71 10/23/16 20:00 98.9 71 20 118/59 96 10/23/16 19:00 96 Nasal Cannula 4.00 10/23/16 18:00 68 10/23/16 16:00 62 10/23/16 16:00 98.6 62 24 115/61 98 10/23/16 14:00 60 10/23/16 12:00 61 10/23/16 12:00 97.7 61 20 108/53 92 10/23/16 11:15 95 Nasal Cannula 2.00 Intake & Output 10/24/16 10/24/16 07:00 19:00 Intake Total 262 ml Output Total 50 ml Balance 212 ml Intake Oral 100 ml IV Total 162 ml Output Urine Total 50 ml Stool Total 0 ml # Bowel Movements 0 . Physical Exam CONSTITUTIONAL/GENERAL: This is an adequately nourished patient in a medical ICU bed. He is awake/alert and answers questions appropriately. No apparent distress. TUBES/LINES/DRAINS: Nasal cannula oxygen; Palumbo catheter; peripheral IV; right jugular Vas-Cath SKIN: No jaundice. Dry gangrene noted on the left second and third toes. There is a blackened area on the left heel. There is left lower extremity edema. Discolorationviolaceous appearanceleft lower extremity. Skin temperature appropriate. Not diaphoretic. EYES: Pupils equal and round . Extraocular motions intact. No scleral icterus. No injection or drainage. Fundi not examined. ENT: Hearing grossly normal. Nose without bleeding or purulent drainage. Mostly edentulous. NECK: Trachea midline. Supple. CARDIOVASCULAR: Frequent skipped beats with monitor showing frequent PVC. No audible murmurs, gallops, or rubs. No JVD. RESPIRATORY/CHEST: Symmetric, unlabored respirations. Clear to auscultation. Breath sounds equal bilaterally but breath sounds diminished. No wheezes, rales , or rhonchi. GASTROINTESTINAL: Abdomen soft, non-tender, nondistended. No hepato-splenomegaly , or palpable masses. No guarding. Bowel sounds present. GENITOURINARY: Without palpable bladder distension. Palumbo catheter in place. MUSCULOSKELETAL: Extremities with gangrene, color changes, and edema as noted above.. LYMPHATICS: Not examined. NEUROLOGICAL: Awake, alert, answers all questions appropriately. Moves all extremities. Follows commands. PSYCHIATRIC: No obvious anxiety/depression. no apparent hallucinations or other psychotic thought process. . . Diagnostic Tests Laboratory Laboratory Tests Test 10/21/16 10/21/16 10/21/16 10/21/16 10:55 12:34 14:06 16:30 Blood Gas Puncture Site RT RADIAL LT RADIAL Blood Gas Patient Temperature 98.6 98.6 Blood Gas HCO3 32 mmol/L 30 mmol/L (22-26) (22-26) Blood Gas Base Excess 4.7 mmol/L 4.1 mmol/L (-2-2) (-2-2) Blood Gas Oxygen Saturation 84 % (90-100) 93 % (90-100) Arterial Blood pH 7.23 7.28 (7.380-7.420) (7.380-7.420) Arterial Blood Partial 78 mmHg (38-42) 67 mmHg (38-42) Pressure CO2 Arterial Blood Partial 58 mmHg 85 mmHg Pressure O2 (61-120) (61-120) Arterial Blood Oxygen Content 11.6 Vol % 13.3 Vol % (12.0-20.0) (12.0-20.0) Arterial Blood 1.5 % (0-4) 1.7 % (0-4) Carboxyhemoglobin Arterial Blood Methemoglobin 0.9 % (0-2) 1.0 % (0-2) Blood Gas Hemoglobin 9.7 G/DL 10.0 G/DL (12.0-16.0) (12.0-16.0) Oxygen Delivery Device NASAL CANNULA BIPAP Blood Gas Liter Flow 3 L/M Blood Gas Ventilator Setting [id number] Blood Gas Inspired Oxygen 60 % Sodium Level 135 MEQ/L (136-145) Potassium Level 5.5 MEQ/L (3.5-5.1) Chloride Level 95 MEQ/L (98-107) Carbon Dioxide Level 33.3 MEQ/L (21.0-32.0) Anion Gap 7 MEQ/L (5-15) Blood Urea Nitrogen 66 MG/DL (7-18) Creatinine 4.33 MG/DL (0.60-1.30) Estimat Glomerular Filtration 13 ML/MIN (>89) Rate Random Glucose 81 MG/DL (74-106) Calcium Level 8.2 MG/DL (8.5-10.1) Hepatitis A IgM Antibody NEGATIVE (NEGATIVE) Hepatitis B Surface Antigen NEGATIVE (NEGATIVE) Hepatitis B Core IgM Antibody NEGATIVE (NEGATIVE) Hepatitis C Antibody NEGATIVE (NEGATIVE) Test 10/22/16 10/22/16 10/22/16 10/22/16 04:29 10:36 17:00 22:46 White Blood Count 9.7 TH/MM3 8.9 TH/MM3 (4.0-11.0) (4.0-11.0) Red Blood Count 3.61 MIL/MM3 3.62 MIL/MM3 (4.50-5.90) (4.50-5.90) Hemoglobin 9.7 GM/DL 9.7 GM/DL (13.0-17.0) (13.0-17.0) Hematocrit 30.0 % 29.9 % (39.0-51.0) (39.0-51.0) Mean Corpuscular Volume 83.2 FL 82.4 FL (80.0-100.0) (80.0-100.0) Mean Corpuscular Hemoglobin 27.0 PG 26.9 PG (27.0-34.0) (27.0-34.0) Mean Corpuscular Hemoglobin 32.4 % 32.6 % Concent (32.0-36.0) (32.0-36.0) Red Cell Distribution Width 15.8 % 15.5 % (11.6-17.2) (11.6-17.2) Platelet Count 149 TH/MM3 149 TH/MM3 (150-450) (150-450) Mean Platelet Volume 9.5 FL 9.3 FL (7.0-11.0) (7.0-11.0) Neutrophils (%) (Auto) 92.7 % (16.0-70.0) Lymphocytes (%) (Auto) 3.6 % (9.0-44.0) Monocytes (%) (Auto) 3.6 % (0.0-8.0) Eosinophils (%) (Auto) 0.0 % (0.0-4.0) Basophils (%) (Auto) 0.1 % (0.0-2.0) Neutrophils # (Auto) 9.0 TH/MM3 (1.8-7.7) Lymphocytes # (Auto) 0.4 TH/MM3 (1.0-4.8) Monocytes # (Auto) 0.4 TH/MM3 (0-0.9) Eosinophils # (Auto) 0.0 TH/MM3 (0-0.4) Basophils # (Auto) 0.0 TH/MM3 (0-0.2) CBC Comment DIFF FINAL Differential Comment Sodium Level 136 MEQ/L (136-145) Potassium Level 5.2 MEQ/L (3.5-5.1) Chloride Level 95 MEQ/L (98-107) Carbon Dioxide Level 31.8 MEQ/L (21.0-32.0) Anion Gap 9 MEQ/L (5-15) Blood Urea Nitrogen 58 MG/DL (7-18) Creatinine 3.96 MG/DL (0.60-1.30) Estimat Glomerular Filtration 15 ML/MIN (>89) Rate Random Glucose 94 MG/DL (74-106) Calcium Level 8.1 MG/DL (8.5-10.1) Total Bilirubin 0.5 MG/DL (0.2-1.0) Aspartate Amino Transf 43 U/L (15-37) (AST/SGOT) Alanine Aminotransferase 18 U/L (12-78) (ALT/SGPT) Alkaline Phosphatase 51 U/L (45-117) Total Protein 5.6 GM/DL (6.4-8.2) Albumin 3.1 GM/DL (3.4-5.0) Prothrombin Time 13.7 SEC (9.8-11.6) Prothromb Time International 1.2 RATIO Ratio Activated Partial 40.2 SEC 64.8 SEC 71.1 SEC Thromboplast Time (24.3-30.1) (24.3-30.1) (24.3-30.1) Test 10/23/16 10/24/16 10/24/16 03:51 06:03 06:07 White Blood Count 12.8 TH/MM3 12.8 TH/MM3 (4.0-11.0) (4.0-11.0) Red Blood Count 3.64 MIL/MM3 4.02 MIL/MM3 (4.50-5.90) (4.50-5.90) Hemoglobin 9.7 GM/DL 10.4 GM/DL (13.0-17.0) (13.0-17.0) Hematocrit 30.0 % 33.5 % (39.0-51.0) (39.0-51.0) Mean Corpuscular Volume 82.4 FL 83.4 FL (80.0-100.0) (80.0-100.0) Mean Corpuscular Hemoglobin 26.7 PG 25.9 PG (27.0-34.0) (27.0-34.0) Mean Corpuscular Hemoglobin 32.4 % 31.0 % Concent (32.0-36.0) (32.0-36.0) Red Cell Distribution Width 15.4 % 15.7 % (11.6-17.2) (11.6-17.2) Platelet Count 138 TH/MM3 122 TH/MM3 (150-450) (150-450) Mean Platelet Volume 9.7 FL 9.4 FL (7.0-11.0) (7.0-11.0) Neutrophils (%) (Auto) 97.0 % 94.5 % (16.0-70.0) (16.0-70.0) Lymphocytes (%) (Auto) 1.4 % 2.2 % (9.0-44.0) (9.0-44.0) Monocytes (%) (Auto) 1.3 % (0.0-8.0) 3.1 % (0.0-8.0) Eosinophils (%) (Auto) 0.0 % (0.0-4.0) 0.0 % (0.0-4.0) Basophils (%) (Auto) 0.3 % (0.0-2.0) 0.2 % (0.0-2.0) Neutrophils # (Auto) 12.5 TH/MM3 12.1 TH/MM3 (1.8-7.7) (1.8-7.7) Lymphocytes # (Auto) 0.2 TH/MM3 0.3 TH/MM3 (1.0-4.8) (1.0-4.8) Monocytes # (Auto) 0.2 TH/MM3 0.4 TH/MM3 (0-0.9) (0-0.9) Eosinophils # (Auto) 0.0 TH/MM3 0.0 TH/MM3 (0-0.4) (0-0.4) Basophils # (Auto) 0.0 TH/MM3 0.0 TH/MM3 (0-0.2) (0-0.2) CBC Comment DIFF FINAL DIFF FINAL Differential Comment Activated Partial 68.1 SEC 76.2 SEC Thromboplast Time (24.3-30.1) (24.3-30.1) Sodium Level 134 MEQ/L 137 MEQ/L (136-145) (136-145) Potassium Level 5.1 MEQ/L 4.7 MEQ/L (3.5-5.1) (3.5-5.1) Chloride Level 94 MEQ/L 95 MEQ/L (98-107) (98-107) Carbon Dioxide Level 31.4 MEQ/L 33.7 MEQ/L (21.0-32.0) (21.0-32.0) Anion Gap 9 MEQ/L (5-15) 8 MEQ/L (5-15) Blood Urea Nitrogen 76 MG/DL (7-18) 63 MG/DL (7-18) Creatinine 4.91 MG/DL 4.18 MG/DL (0.60-1.30) (0.60-1.30) Estimat Glomerular Filtration 11 ML/MIN (>89) 14 ML/MIN (>89) Rate Random Glucose 131 MG/DL 125 MG/DL (74-106) (74-106) Calcium Level 8.1 MG/DL 8.2 MG/DL (8.5-10.1) (8.5-10.1) Phosphorus Level 6.2 MG/DL (2.5-4.9) Magnesium Level 2.4 MG/DL (1.5-2.5) Total Bilirubin 0.4 MG/DL 0.4 MG/DL (0.2-1.0) (0.2-1.0) Aspartate Amino Transf 44 U/L (15-37) 39 U/L (15-37) (AST/SGOT) Alanine Aminotransferase 21 U/L (12-78) 24 U/L (12-78) (ALT/SGPT) Alkaline Phosphatase 60 U/L (45-117) 54 U/L (45-117) Total Protein 5.7 GM/DL 5.5 GM/DL (6.4-8.2) (6.4-8.2) Albumin 2.8 GM/DL 2.6 GM/DL (3.4-5.0) (3.4-5.0) . Result Diagram: 10/24/16 0603 10/24/16 0607 Microbiology Cultures to date show no growth. . Imaging Last Impressions Chest X-Ray 10/21/16 0000 Signed Impressions: Service Date/Time: Friday, October 21, 2016 15:16 - CONCLUSION: 1. There is near-complete opacification of the left hemithorax compared to the prior study. 2. Persistent right lower lung infiltrate 3. Pulmonary venous congestion. Job Camarillo MD Thoracentesis 10/20/16 0000 Signed Impressions: Service Date/Time: Thursday, October 20, 2016 16:00 - CONCLUSION: Uncomplicated CT-guided thoracentesis. Significant improvement in the left lung following thoracentesis. Milton Farfan MD FACR Renal Ultrasound 10/20/16 0000 Signed Impressions: Service Date/Time: Thursday, October 20, 2016 16:52 - CONCLUSION: 1. Slight increase in echogenicity of the kidneys which can suggest some degree of medical renal disease. 2. Right pleural effusion. Willis Garcia MD Head CT 10/18/16 0000 Signed Impressions: Service Date/Time: Tuesday, October 18, 2016 13:56 - CONCLUSION: 1. No acute intracranial abnormality is identified. 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 Profunda branches reconstitute. Left superficial femoral artery is proximally occluded and severely diseased following reconstitution. No healthy appearing potential target vessels above the calf on the left. Less severe runoff changes on the right as described. Severe visceral arterial disease Large pleural effusions. Sizable calcific thoracic disc herniation, incompletely seen Willis Chen MD Lower Extremity Ultrasound 10/13/16 0000 Signed Impressions: Service Date/Time: Thursday, October 13, 2016 08:32 - CONCLUSION: Negative for deep venous thrombosis. Milton Farfan MD FACR . Procedures * Vas-Cath placement * Hemodialysis * Left lower extremity angiogram * Thoracentesis . Assessment and Plan Disease Oriented Problem List: (1) PAD (peripheral artery disease) (2) Ischemia of left lower extremity Comment: Angiogram shows no role for a procedural repari. Two separate vascular surgery consults have indicated that amputation would be necessary if patient desires ongoing aggressive care. . (3) COPD (chronic obstructive pulmonary disease) (4) MARLYN (acute kidney injury) Comment: Currently requriing hemodialysis. . (5) Non-sustained ventricular tachycardia (6) Atrial fibrillation (7) Bilateral pleural effusion Comment: s/p thoracentesis. . (8) History of CVA (cerebrovascular accident) (9) HTN (hypertension) Symptom Scale: (1) Pain 0-10 Scale: 0 Comment: Patient denies pain at time of my visit. Has had pain in the left lower extremity. Other contributing factors to discomfort include prolonged bedbound status; vascular access catheters; Palumbo catheter. Pain currently controlled with oxycodone/acetaminophen 5-325. (2) Dyspnea 0-10 Scale: 0 Comment: Patient denies shortness of breath at rest while on nasal cannula oxygen. Dyspnea is due to a combination of underlying COPD and pleural effusions. Patient had recent thoracentesis. Using BiPAP at night on occasion. . . (3) Fatigue 0-10 Scale: Unable to quantify Comment: Patient has been primarily bedbound since suffering his fall proximally 7 weeks ago. There is considerable deconditioning. . Pertinent Non-Medical Issues Psychosocial: Patient is but has dementia and was recently moved to a long-term care facility. Patient reportedly is estranged from his son. Patient's daughter flew in from [place] on 10/23/16. Spiritual: Reason is a Denominational but into the [employer] sh[employer]. 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 Legal: No known advanced directive. Patient is verbally expressed his desire to designate his daughterMelanieas his health care surrogate. Ethical issues impacting care: Patient is capacitated to make his own health care decisions. Recommend that major decisions be shared with his daughter. . Important Contacts * Anitha Lloyd (daughter and health care surrogate ) [phone] . Prognosis Mr. Reid , per his daughter, have been remarkably active and vital up until about 7 weeks ago. He was a primary caregiver for his demented . 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 Since his fall he is becoming mostly bedbound. He is found to have severe peripheral arterial disease. Since his hospitalization he has had complications including nonsustained ventricular tachycardia, acute kidney injury requiring dialysis, and pleural effusions requiring thoracentesis. 2 different cardiovascular surgeons have indicated that his left lower extremity cannot be salvaged through interventional vascular procedures. They have recommended amputation. The patient has underlying COPD and atrial fibrillation requiring anticoagulation. Given the patient's hospital course to date, one might expect significant complications postoperatively should he go through with the procedure. Should he not go through with the procedure, gangrene will progress. He will essentially be bedbound. We would anticipate sepsis and pneumonia. Patient would certainly be a candidate for hospice care should he decide not to have the amputation. Per the discussion of 10/24/16, patient is opting against amputation and appears to desire a transition to "comfort measures only" and going home. . Code Status: No Code Plan == CODE STATUS: No code. Both patient and daughter agree. == Decision-making: Patient appears capacitated to make his own health care decisions. Recommend that major decisions be made in a shared fashion with his designated health care surrogatehis daughter Anitha. == Goals of medical treatment: Per notes above , patient and daughter have decided to forego amputation and other aggressive care care and transition to "comfort measures only." Hospice consult has been offered and accepted. == Pain: Most the patient's pain is in his left lower extremity and is probably due to his ischemia. Other possible sources of discomfort include his prolonged bedbound status; vascular access lines; Palumbo catheter; etc. His current analgesic regimen which is oxycodone/acetaminophen 5-325 appears to be working. No further recommendations at this time. == Dyspnea: Patient has underlying COPD and has pleural effusions requiring recent thoracentesis. Had been needing BiPAP and a nonrebreather mask. Now appears comfortable at rest with nasal cannula oxygen. Patient is currently on intravenous steroids, nebulizer treatments, Spiriva, and antibiotics. No further recommendations at this time == Fatigue: Patient has essentially been bedbound for proximally 7 weeks. Severe deconditioning has taken place. He has also been critically ill. If the patient decides against amputation, he will likely remain bedbound and fatigued. If he decided to go forward with amputation, he will need to recover from a major surgery and will have additional de-conditioning to overcome. == Hospice has been consulted pre family request. == Patient and daugther have just heard that the patient's -- recently placed in [facility] care for dementia -- may have just suffered an KS and is on her way to the hospital. Family will need significant emotional support. . Time Spent Total Floor Time (mins): 40 (Total floor time included chart review; patient exam; bedside discussion with patient and daughter lasting 15 minutes discussing goal of medical treatment going forward; documentation; discussion with hospice. ) Face to Face Time (mins): 20 >50% Counseling/Coord of Care: Yes Attestation To help prompt me to consider important information that might be impacting today's encounter and assessment, information from prior notes written by myself or my colleagues may have been "brought forward" into today's note. My signature on this note, however, is an attestation that I personally performed the exam, history, and/or decision-making noted today, and, unless otherwise indicated, the interactions with patient, family, and staff as well as the review of records all occurred today. I also attest that the listed assessment and stated plan reflect my best clinical judgment today based on the combination of historical information, prior notes, and today's exam/ interactions. When time spent is documented, it refers only to time spent today by the signer, or if indicated, combined time spent today by collaborating physician/nurse practitioner. . Santy Sommer MD Oct 24, 2016 10:49
--- NOTE | 2016-10-24 12:33 | HHI.DS ---
Discharge Summary Admission Date Oct 12, 2016 at 21:39 Discharge Date: Oct 24, 2016 Admitting Diagnosis Ischemic Foot (1) Ischemia of left lower extremity ICD Code: I99.8 Diagnosis: Principal (2) MARLYN (acute kidney injury) ICD Code: N17.9 Diagnosis: Principal (3) Non-sustained ventricular tachycardia ICD Code: I47.2 Diagnosis: Principal (4) COPD (chronic obstructive pulmonary disease) ICD Code: J44.9 Diagnosis: Principal (5) History of CVA (cerebrovascular accident) ICD Code: Z86.73 Diagnosis: Secondary (6) HTN (hypertension) ICD Code: I10 Diagnosis: Principal (7) Atrial fibrillation ICD Code: I48.91 Diagnosis: Principal (8) Bilateral pleural effusion ICD Code: J90 Diagnosis: Principal (9) Acute hypoxemic respiratory failure ICD Code: J96.01 Diagnosis: Principal (10) Subtherapeutic international normalized ratio (INR) ICD Code: R79.1 Diagnosis: Principal (11) DNR (do not resuscitate) discussion ICD Code: Z71.89 Diagnosis: Principal (12) Hyperkalemia ICD Code: E87.5 Diagnosis: Principal (13) Hypoglycemia ICD Code: E16.2 Diagnosis: Principal (14) Encephalopathy ICD Code: G93.40 Diagnosis: Principal Procedures none Brief History - From Admission History from patient, ER physician communication, and review of medical records. Patient reported that he came to the hospital for sprained ankle. However, as per ER report, patient was here 2 days ago for this sprained ankle. He was not responding his phone calls at home and family members had called police to check on him. His ailing is also in hospital. Patient is awake alert and oriented. However he is not in the best mood to answer questions. He reports that his doctor has sent him for a circulation test because they were concerned about this color of his lower extremities. He denies any fever. He has noted left leg calf size bigger than the right. He is unsure for how long. He states that he did trip and fall on 10 October. He states this was just a simple trip and fall. Denies any loss of consciousness or hitting his head. Apart from the above, patient also denies any recent fever/nausea/vomiting/ diarrhea/urinary burning and pain in urination. He denies any hematemesis/hematochezia/melena/hematuria.. CBC/BMP: 10/24/16 0603 10/24/16 0607 Significant Findings Laboratory Tests Test 10/21/16 10/21/16 10/22/16 10/22/16 12:34 14:06 04:29 10:36 Blood Gas HCO3 30 mmol/L (22-26) Blood Gas Base Excess 4.1 mmol/L (-2-2) Arterial Blood pH 7.28 (7.380-7.420) Arterial Blood Partial 67 mmHg (38-42) Pressure CO2 Blood Gas Hemoglobin 10.0 G/DL (12.0-16.0) Sodium Level 135 MEQ/L (136-145) Potassium Level 5.5 MEQ/L 5.2 MEQ/L (3.5-5.1) (3.5-5.1) Chloride Level 95 MEQ/L 95 MEQ/L (98-107) (98-107) Carbon Dioxide Level 33.3 MEQ/L (21.0-32.0) Blood Urea Nitrogen 66 MG/DL (7-18) 58 MG/DL (7-18) Creatinine 4.33 MG/DL 3.96 MG/DL (0.60-1.30) (0.60-1.30) Estimat Glomerular Filtration 13 ML/MIN (>89) 15 ML/MIN (>89) Rate Calcium Level 8.2 MG/DL 8.1 MG/DL (8.5-10.1) (8.5-10.1) Red Blood Count 3.61 MIL/MM3 3.62 MIL/MM3 (4.50-5.90) (4.50-5.90) Hemoglobin 9.7 GM/DL 9.7 GM/DL (13.0-17.0) (13.0-17.0) Hematocrit 30.0 % 29.9 % (39.0-51.0) (39.0-51.0) Platelet Count 149 TH/MM3 149 TH/MM3 (150-450) (150-450) Neutrophils (%) (Auto) 92.7 % (16.0-70.0) Lymphocytes (%) (Auto) 3.6 % (9.0-44.0) Neutrophils # (Auto) 9.0 TH/MM3 (1.8-7.7) Lymphocytes # (Auto) 0.4 TH/MM3 (1.0-4.8) Aspartate Amino Transf 43 U/L (15-37) (AST/SGOT) Total Protein 5.6 GM/DL (6.4-8.2) Albumin 3.1 GM/DL (3.4-5.0) Mean Corpuscular Hemoglobin 26.9 PG (27.0-34.0) Prothrombin Time 13.7 SEC (9.8-11.6) Activated Partial 40.2 SEC Thromboplast Time (24.3-30.1) Test 10/22/16 10/22/16 10/23/16 10/24/16 17:00 22:46 03:51 06:03 Activated Partial 64.8 SEC 71.1 SEC 68.1 SEC Thromboplast Time (24.3-30.1) (24.3-30.1) (24.3-30.1) White Blood Count 12.8 TH/MM3 12.8 TH/MM3 (4.0-11.0) (4.0-11.0) Red Blood Count 3.64 MIL/MM3 4.02 MIL/MM3 (4.50-5.90) (4.50-5.90) Hemoglobin 9.7 GM/DL 10.4 GM/DL (13.0-17.0) (13.0-17.0) Hematocrit 30.0 % 33.5 % (39.0-51.0) (39.0-51.0) Mean Corpuscular Hemoglobin 26.7 PG 25.9 PG (27.0-34.0) (27.0-34.0) Platelet Count 138 TH/MM3 122 TH/MM3 (150-450) (150-450) Neutrophils (%) (Auto) 97.0 % 94.5 % (16.0-70.0) (16.0-70.0) Lymphocytes (%) (Auto) 1.4 % 2.2 % (9.0-44.0) (9.0-44.0) Neutrophils # (Auto) 12.5 TH/MM3 12.1 TH/MM3 (1.8-7.7) (1.8-7.7) Lymphocytes # (Auto) 0.2 TH/MM3 0.3 TH/MM3 (1.0-4.8) (1.0-4.8) Sodium Level 134 MEQ/L (136-145) Chloride Level 94 MEQ/L (98-107) Blood Urea Nitrogen 76 MG/DL (7-18) Creatinine 4.91 MG/DL (0.60-1.30) Estimat Glomerular Filtration 11 ML/MIN (>89) Rate Random Glucose 131 MG/DL (74-106) Calcium Level 8.1 MG/DL (8.5-10.1) Phosphorus Level 6.2 MG/DL (2.5-4.9) Aspartate Amino Transf 44 U/L (15-37) (AST/SGOT) Total Protein 5.7 GM/DL (6.4-8.2) Albumin 2.8 GM/DL (3.4-5.0) Mean Corpuscular Hemoglobin 31.0 % Concent (32.0-36.0) Test 10/24/16 06:07 Activated Partial 76.2 SEC Thromboplast Time (24.3-30.1) Chloride Level 95 MEQ/L (98-107) Carbon Dioxide Level 33.7 MEQ/L (21.0-32.0) Blood Urea Nitrogen 63 MG/DL (7-18) Creatinine 4.18 MG/DL (0.60-1.30) Estimat Glomerular Filtration 14 ML/MIN (>89) Rate Random Glucose 125 MG/DL (74-106) Calcium Level 8.2 MG/DL (8.5-10.1) Aspartate Amino Transf 39 U/L (15-37) (AST/SGOT) Total Protein 5.5 GM/DL (6.4-8.2) Albumin 2.6 GM/DL (3.4-5.0) Imaging Last Impressions Chest X-Ray 10/21/16 0000 Signed Impressions: Service Date/Time: Friday, October 21, 2016 15:16 - CONCLUSION: 1. There is near-complete opacification of the left hemithorax compared to the prior study. 2. Persistent right lower lung infiltrate 3. Pulmonary venous congestion. Job Caamrillo MD Thoracentesis 10/20/16 0000 Signed Impressions: Service Date/Time: Thursday, October 20, 2016 16:00 - CONCLUSION: Uncomplicated CT-guided thoracentesis. Significant improvement in the left lung following thoracentesis. Milton Farfan MD FACR Renal Ultrasound 10/20/16 0000 Signed Impressions: Service Date/Time: Thursday, October 20, 2016 16:52 - CONCLUSION: 1. Slight increase in echogenicity of the kidneys which can suggest some degree of medical renal disease. 2. Right pleural effusion. Willis Garcia MD Head CT 10/18/16 0000 Signed Impressions: Service Date/Time: Tuesday, October 18, 2016 13:56 - CONCLUSION: 1. No acute intracranial abnormality is identified. 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 Profunda branches reconstitute. Left superficial femoral artery is proximally occluded and severely diseased following reconstitution. No healthy appearing potential target vessels above the calf on the left. Less severe runoff changes on the right as described. Severe visceral arterial disease Large pleural effusions. Sizable calcific thoracic disc herniation, incompletely seen Willis Chen MD Lower Extremity Ultrasound 10/13/16 0000 Signed Impressions: Service Date/Time: Thursday, October 13, 2016 08:32 - CONCLUSION: Negative for deep venous thrombosis. Milton Farfan MD FACR PE at Discharge GENERAL: This is a well-nourished, well-developed patient, in mild respiratory distress. CARDIOVASCULAR: Regular rate and regular rhythm without murmurs, gallops, or rubs. RESPIRATORY: Decreased breath sounds on left lung field. Right lung field shows expiratory wheezing. No crackles or rhonchi auscultated. GASTROINTESTINAL: Abdomen soft, non-tender, nondistended. Normal, active bowel sounds MUSCULOSKELETAL: Left leg shows necrotic second and third toes. The left foot has a purple and mottled discoloration. Pulses are not palpable in the left leg. The extremity is cold to touch. NEURO: lethargic. Does not follow commands. Pt update on day of discharge Patient more awake and alert. Daughter at bedside. Both patient and daughter have requested comfort measure only. Patient will be discharged to hospice. Hospital Course (1) Ischemia of left lower extremity Plan: Patient was admitted to the medical floor and vascular surgery was consulted. The patient underwent left lower extremity angiogram with findings described as severe inflow and outflow disease. Vascular surgery evaluated patient with a CTA w runoff and recommended AKA amputation which was confirmed by a second opinion of a second vascular surgeon. Patient was evaluated by other vascular surgeon who confirmed the need for AKA. (2) MARLYN (acute kidney injury) Initially likely prerenal azotemia . Patient was initially trending down with IV fluids. After CTA the patient's creatinine started to trend up and to the patient became oliguric. IV fluid was held were held due to fluid overload and large pleural effusion which also breath and acute respiratory failure.. At that point nephrology who had been consulted started the patient on hemodialysis. At this point likely ATN likely secondary to hypotension and contrast nephropathy with gangrene of the left leg / sepsis. (3) Non-sustained ventricular tachycardia Echocardiogram showed EF of 35%. The patient started on metoprolol and is being monitored on telemetry. Cardiology consultation appreciated. Patient borderline hypotensive, beta shelly held due to hypotension with consequent improvement of blood pressure. (4) COPD (chronic obstructive pulmonary disease) Patient with mild COPD exacerbation which was treated with IV supplemental 125 mg IV once with good response and IV Solumedrol 60 mg IV Q 6 hrs. Taper steroids - decrease Solumedrol IV to 40 mg IV Q 8 hrs. (5) History of CVA (cerebrovascular accident) Plan: Continue statin, patient previously on Coumadin on hold now for planned procedure. INR 2.3, continue to monitor PT/INR and start heparin drip once INR falls below 2. (6) HTN (hypertension) Procardia and metoprolol continued on admission. BP stable initially. 10/20 patient now borderline hypotensive. Hold Procardia and metoprolol. 10/21 Patient's blood pressure transiently improved last night but in the 90's systolic overnight. 1 amp of 25% of albumin ordered. 10/23 Bp stable continue to monitor bp. (7) Atrial fibrillation EKG reviewed by me showed atrial flutter with a ventricular rate of 62 bpm. Atrial fibrillation/atrial flutter is rate controlled, continue beta shelly which has been started by cardiology. Echocardiogram showed a systolic function moderately reduced with an EF of 35-40 %. Diffuse hypokinesis. Trace aortic regurgitation. Mild to moderate mitral valve regurgitation. Moderate tricuspid regurgitation. Cardiology consulted, appreciate recommendations. INR was therapeutic, Vitamin K administered to bring it down for thoracentesis, 10/21 INR responded to vitamin K administration. INR subtherapeutic. 10/22 Patient started on heparin gtt. (8) Bilateral pleural effusion Patient has a large left pleural effusion and a moderate right pleural effusion. As seen on CTA of the aorta with runoff. I will order a chest x-ray. Pulmonary consulted. Patient is status post drainage of left pleural effusion. Repeat chest x-ray after drainage showed improved aeration in the left lung following thoracentesis. (9) Acute hypercarbic hypoxemic respiratory failure Due to large pleural effusions. Patient desated into the high 70s Status post drainage of left pleural effusion. 10/21 Patient was administered 12 mg of IV morphine overnight for pain and agitation. Patient today lethargic. ABG was obtained which showed a pH of 7.23 , PCO2 78.2 [address]2 [address] the patient on BiPAP 04/19. Case discussed with Dr. Pereira who is covering for pulmonary. A repeat ABG will be done after 1 hour of the patient being on BiPAP. Professional Benefits Sales Consultant consulted for placement of vas cath. Discussed the case with Dr Sarabia and she told me the patient could remain under my care. 10/22 Respiratory failure much improved patient is off bipap and non rebreather mask and now is on nasal canula. Continue to monitor respiratory status and continue with supplemental O2 to keep o2 sat < 92%. Palliative care consulted, appreciate recommendations. Appreciate Dr. Aviles's visit and clarification with power of [place] attorney status. Apparently the patient has not kept in contact with his son. And as per conversations with the daughter and reviewing Dr. Aviles's records, the patient's son who is the power of [place] attorney has moved out of the area and cannot be found. Apparently the patient's daughter was working on changing the POA of united [place] attorney papers, however it is uncertain if this was completed. The patient's daughter will be coming to [place] and be here tomorrow morning. Case was discussed with the daughter who wants hospice to be consulted ----> Patient discharged to hospice. Pt Condition on Discharge: Guarded Discharge Disposition: Hospice/Med Facility Discharge Time: > 30 minutes Discharge Instructions DIET: Follow Instructions for: As Tolerated, No Restrictions Activities you can perform: Continue Bedrest Yfn Hernandez MD Oct 24, 2016 12:33
--- NOTE | 2016-10-24 13:47 | PD.VS.PN ---
Subjective Subjective/Hospital Course Pt alert, pleasant No c/o foot pain. No F/C daughter at BS - the patient and family have elected to go to Hospice, which I think is completely reasonable. Objective Vitals/I&O Date Time Temp Pulse Resp B/P Pulse Ox O2 Delivery O2 Flow Rate FiO2 10/24/16 10:00 70 10/24/16 08:54 93 Nasal Cannula 3.00 10/24/16 08:00 95 Bi-Pap 45 10/24/16 08:00 68 10/24/16 06:00 61 10/24/16 04:20 97 40 10/24/16 04:00 98.0 67 24 117/58 96 10/24/16 04:00 69 10/24/16 04:00 66 26 107/54 96 10/24/16 02:00 62 10/24/16 01:23 95 40 10/24/16 00:00 98.5 66 20 121/56 95 10/24/16 00:00 66 10/23/16 22:28 96 40 10/23/16 22:00 66 10/23/16 20:09 95 40 10/23/16 20:00 71 10/23/16 20:00 98.9 71 20 118/59 96 10/23/16 19:00 96 Nasal Cannula 4.00 10/23/16 18:00 68 10/23/16 16:00 62 10/23/16 16:00 98.6 62 24 115/61 98 10/23/16 14:00 60 10/24/16 10/24/16 10/24/16 07:00 15:00 23:00 Intake Total 70 ml Output Total 25 ml Balance 45 ml Physical Exam L leg less erythematous, dry gangrene stable No odor, no drainage Laboratory Laboratory Tests Test 10/24/16 10/24/16 06:03 06:07 White Blood Count 12.8 Red Blood Count 4.02 Hemoglobin 10.4 Hematocrit 33.5 Mean Corpuscular Volume 83.4 Mean Corpuscular Hemoglobin 25.9 Mean Corpuscular Hemoglobin 31.0 Concent Red Cell Distribution Width 15.7 Platelet Count 122 Mean Platelet Volume 9.4 Neutrophils (%) (Auto) 94.5 Lymphocytes (%) (Auto) 2.2 Monocytes (%) (Auto) 3.1 Eosinophils (%) (Auto) 0.0 Basophils (%) (Auto) 0.2 Neutrophils # (Auto) 12.1 Lymphocytes # (Auto) 0.3 Monocytes # (Auto) 0.4 Eosinophils # (Auto) 0.0 Basophils # (Auto) 0.0 CBC Comment DIFF FINAL Differential Comment Activated Partial 76.2 Thromboplast Time Sodium Level 137 Potassium Level 4.7 Chloride Level 95 Carbon Dioxide Level 33.7 Anion Gap 8 Blood Urea Nitrogen 63 Creatinine 4.18 Estimat Glomerular Filtration 14 Rate Random Glucose 125 Calcium Level 8.2 Total Bilirubin 0.4 Aspartate Amino Transf 39 (AST/SGOT) Alanine Aminotransferase 24 (ALT/SGPT) Alkaline Phosphatase 54 Total Protein 5.5 Albumin 2.6 Assessment and Plan Plan Mr. 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 Sadly, his only option is L AKA I think the family's decision to pursue Hospice is completely reasonable. No surgery. Please call me with any questions. Rg Oquendo MD FACS dinkey mechanic [facility] at [facility] Rg Oquendo MD Oct 24, 2016 13:47
== END 2016-10-24 15:10 | disposition hospice, inpatient (51) | DRG 299 ==
LOC: NEPA 17:32 → NEDA 21:39 → N04A 10-13 02:30 → HIMN 10-20 12:14
PROVIDERS: ADMIT Hospitalist; ATTEND Hospitalist
PROC: B41F1ZZ Fluoroscopy of Right Lower Extremity Arteries using Low Osmolar Contrast (ICD-10-PCS; principal; 2016-10-17 11:10)
PROC: 0W9B3ZZ Drainage of Left Pleural Cavity, Percutaneous Approach (ICD-10-PCS; 2016-10-20)
PROC: 5A09457 Assistance with Respiratory Ventilation, 24-96 Consecutive Hours, Continuous Positive Airway Pressure (ICD-10-PCS; 2016-10-21)
PROC: 05HM33Z Insertion of Infusion Device into Right Internal Jugular Vein, Percutaneous Approach (ICD-10-PCS; 2016-10-21)
PROC: 5A1D60Z (ICD-10-PCS; 2016-10-21)
DX: I70.261 Atherosclerosis of native arteries of extremities with gangrene, right leg (principal); N17.0 Acute kidney failure with tubular necrosis; I47.2 Ventricular tachycardia; J90 Pleural effusion, not elsewhere classified; G93.49 Other encephalopathy; J96.02 Acute respiratory failure with hypercapnia; J96.01 Acute respiratory failure with hypoxia; I13.0 Hypertensive heart and chronic kidney disease with heart failure and stage 1 through stage 4 chronic kidney disease, or unspecified chronic kidney disease; E87.2 Acidosis; I95.9 Hypotension, unspecified; I50.9 Heart failure, unspecified; I42.9 Cardiomyopathy, unspecified; I70.0 Atherosclerosis of aorta; J44.1 Chronic obstructive pulmonary disease with (acute) exacerbation; N17.9 Acute kidney failure, unspecified; E86.0 Dehydration; I48.2 Chronic atrial fibrillation; E87.5 Hyperkalemia; I08.1 Rheumatic disorders of both mitral and tricuspid valves; S93.402D Sprain of unspecified ligament of left ankle, subsequent encounter; N14.1 Nephropathy induced by other drugs, medicaments and biological substances; T50.8X5A Adverse effect of diagnostic agents, initial encounter; Z51.5 Encounter for palliative care; Z66 Do not resuscitate; N18.9 Chronic kidney disease, unspecified; E78.5 Hyperlipidemia, unspecified; E16.2 Hypoglycemia, unspecified; I27.2 Other secondary pulmonary hypertension; Z86.73 Personal history of transient ischemic attack (TIA), and cerebral infarction without residual deficits; Z79.01 Long term (current) use of anticoagulants; Z99.81 Dependence on supplemental oxygen; Z87.891 Personal history of nicotine dependence; Z88.0 Allergy status to penicillin
CPT/HCPCS: 32555; 36415; 36556; 36600; 70450; 71010; 75635; 75710; 76775; 76937; 80048; 80053; 80074; 80307; 81001; 82805; 83605; 83690; 83735; 83930; 84100; 84300; 84443; 85025; 85027; 85610; 85730; 87040; 87205; 90935; 93005; 93306; 93970; 93971; 93998; 94002; 94003; 94640; 94664; 96360; 96374; 96375; C1729; C1769; J0131; J1580; J1644; J1815; J1956; J2150; J2250; J2270; J2310; J2720; J2920; J2930; J3010; J3430; J7030; J7040; J7613; P9047; Q9967